=== PATIENT | male | born 1935 | race Caucasian/White ===

== ENCOUNTER → 2017-03-21 | Outpatient (CLI) | payer MEDICARE, BC ==
--- NOTE | 2017-03-21 12:41 | MM ---
Reason for exam: clinical finding. History: Family history of breast cancer in daughter at age 56. Indicated problem(s): palpable abnormality and pain in the left breast. Physical Findings: Nurse Summary: 2 x 2cm nodule in the left breast at the nipple (nurse cw). MG 3D Diag Mammo W/Cad ALEKS Bilateral CC and MLO view(s) were taken. No prior studies available for comparison. The breast tissue is heterogeneously dense. This may lower the sensitivity of mammography. Asymmetry greater in the left breast. Corresponds to ultrasound findings. These results were verbally communicated with the patient and result sheet given to the patient on 03/21/17. ASSESSMENT: Suspicious, BI-RAD 4 RECOMMENDATION: Surgical consultation and ultrasound core biopsy of the left breast. Called Dr. Will with mammographic findings and has scheduled an appointment for the patient for 03/27/17 at [address] Albrecht. Biopsy scheduled for 03/28/17 at 8 o'clock. PRELIMINARY REPORT CALLED AND FAXED TO DR. ALBRECHT ON 03/21/17 /TMP.
--- NOTE | 2017-03-21 12:43 | USB ---
Reason for exam: clinical finding. History: Family history of breast cancer in daughter at age 56. Indicated problem(s): palpable abnormality and pain in the left breast. US Breast LT Left breast ultrasound demonstrates a 22 x 11 x 15mm gynecomastia at the nipple. Not typical flame appearance, cannot exclude mass. These results were verbally communicated with the patient and result sheet given to the patient on 03/21/17. ASSESSMENT: Suspicious, BI-RAD 4 RECOMMENDATION: Surgical consultation and ultrasound core biopsy of the left breast. Called Dr. Will with mammographic findings and has scheduled an appointment for the patient for 03/27/17 at [address] Albrecht. Biopsy scheduled for 03/28/17 at 8 o'clock. PRELIMINARY REPORT CALLED AND FAXED TO DR. ALBRECHT ON 03/21/17 /TMP.
== END | disposition home or self-care (01) ==
LOC: RADMAMWWP 07:49
PROVIDERS: ATTEND Internal Medicine
DX: R92.8 Other abnormal and inconclusive findings on diagnostic imaging of breast (principal); N63 Unspecified lump in breast; N64.4 Mastodynia
CPT/HCPCS: 76641; G0204; G0279

== ENCOUNTER → 2017-03-28 | Day surgery (SDC) | payer MEDICARE, BC ==
[2017-03-28 07:50] VITALS: RESP 18; BMI 25.8
[2017-03-28 08:54] VITALS: BP 146/68; PULSE 61; TEMP 98.7
--- NOTE | 2017-03-28 09:32 | USB ---
EXAMINATION TYPE: US biopsy breast VAD LT DATE OF EXAM: 03/28/2017 CLINICAL HISTORY: 81-year-old male R92.8 Abn Mammogram. Patient with tender palpable lump left breast for the last couple months. TECHNIQUE: Ultrasound guided core biopsy of the left breast. COMPARISON: 03/21/2017 FINDINGS: The procedure of ultrasound guided core biopsy was explained to the patient. Benefits, alternatives, and risks were discussed. An informed consent was then obtained. The patient was placed in supine positioning for imaging and for the procedure. The overlying skin was prepped and draped in usual sterile fashion. Lidocaine was used as anesthetic into the skin and subcutaneous tissue up to area of concern in the left subareolar breast. Under ultrasound guidance, a 13-gauge vacuum-assisted mammotome a lead biopsy gun was used to obtain 6 core samples. Following this, a biopsy clip was not placed due to high suspicion of benign gynecomastia and the focality of the area which will make it easy to identify later if needed. The patient tolerated the procedure well without any immediate complication. The patient was kept in the radiology department for short stay after the procedure and then discharged home in stable condition. IMPRESSION: Successful, uncomplicated ultrasound guided core biopsy of area of concern in the subareolar left breast. Benign gynecomastia is highly suspected. Full pathology results to follow. Pathology Results: Benign BREAST, LEFT, ULTRASOUND GUIDED CORE BIOPSY: GYNECOMASTIA. Recommendation Surgical consult of the left breast. (surgical consult can be considered for possible elective excision if continues to be symptomatic) LENORA
== END ==
LOC: RADUSWWP 07:30
PROVIDERS: ATTEND Surgery
DX: N62 Hypertrophy of breast (principal); R92.8 Other abnormal and inconclusive findings on diagnostic imaging of breast
CPT/HCPCS: 88305; 19083; J2001

== ENCOUNTER → 2017-11-30 | Outpatient (CLI) | payer MEDICARE, BC | END | disposition home or self-care (01) | LOC: LABPAT 10:32 | PROVIDERS: ATTEND Orthopaedic Surgery | DX: Z01.812 Encounter for preprocedural laboratory examination (principal) | CPT/HCPCS: 87070 ==

== ENCOUNTER → 2017-12-04 | Outpatient (CLI) | payer MEDICARE, BC ==
[2017-12-04 17:26] LABS: Basophils # (A) 0.1 k/uL (0-0.2); Basophils % (A) 1 %; Eosinophils # (A) 0.2 k/uL (0-0.7); Eosinophils % (A) 3 %; HCT 36.2 % (39.0-53.0); HGB 11.8 gm/dL (13.0-17.5); Lymphocytes # (A) 1.1 k/uL (1.0-4.8); Lymphocytes % (A) 19 %; MCH 27.8 pg (25.0-35.0); MCHC 32.6 g/dL (31.0-37.0); MCV 85.2 fL (80.0-100.0); Monocytes # (A) 0.6 k/uL (0-1.0); Monocytes % (A) 10 %; Neutrophils # (A) 3.6 k/uL (1.3-7.7); Neutrophils % (A) 64 %; Platelet Count 246 k/uL (150-450); RBC 4.25 m/uL (4.30-5.90); RDW 13.5 % (11.5-15.5); WBC 5.6 k/uL (3.8-10.6)
[2017-12-04 17:36] LABS: INR 1.1 (<1.2); Partial Thromboplastin Time 24.7 sec (22.0-30.0); Prothrombin Time 10.6 sec (9.0-12.0)
[2017-12-04 17:42] LABS: Calcium 9.6 mg/dL (8.4-10.2); Potassium 4.3 mmol/L (3.5-5.1)
== END | disposition home or self-care (01) ==
LOC: LABPAT 16:36
PROVIDERS: ATTEND Internal Medicine
DX: Z01.812 Encounter for preprocedural laboratory examination (principal)
CPT/HCPCS: 36415; 80048; 85025; 85610; 85730

== ENCOUNTER 2017-12-10 09:33 | Inpatient (IN) | payer MEDICARE, BC ==
[2017-12-03 16:44] VITALS: BMI 24.3
--- NOTE | 2017-12-09 12:31 | HP ---
HISTORY AND PHYSICAL DATE OF ADMISSION: Surgery scheduled for 12/10/17 HISTORY OF PRESENT ILLNESS: Eriberto Schuster is an 82-year-old patient seen with symptomatic left hip osteoarthritis. Treatment options were discussed with him. He elected to proceed with direct anterior left total hip arthroplasty. Consent regarding the procedure was obtained. Medical clearance was provided by Dr. Will. PAST MEDICAL HISTORY: Hypertension, hyperlipidemia. PAST SURGICAL HISTORY: Appendectomy, cataract surgery, shoulder rotator cuff repair. MEDS: Albuterol, Hyzaar, metoprolol, Zocor. ALLERGIES: SURGICAL TAPE. SOCIAL HISTORY: The patient denies current tobacco use. PHYSICAL EXAMINATION: Evaluation of the left hip there is very limited range of motion with severe pain, diffuse tenderness. Positive hip impingement sign. Straight leg raise negative. Distal neurovascular exam is intact. RADIOGRAPHS: Radiographs of the left hip reveal severe osteoarthritis. IMPRESSION: 1. Left hip osteoarthritis. 2. Hypertension. 3. Hyperlipidemia. PLAN: Direct anterior left total hip arthroplasty. Surgery is scheduled for 12/10/17. MMODL / IJN: [id number] /
[~2017-12-10 09:33] MED LIST: ACETAMINOPHEN TAB 500 MG TAB PO ONE; HYDROmorphone 0.5 MG/0.5 ML SYRINGE IVP PRN; MELOXICAM 7.5 MG TAB PO ONE; MORPHINE SULFATE 2 MG/ML SYRINGE IV PRN; TRANEXAMIC ACID 1,000 MG in SODIUM CHLORIDE 0.9% 50 ML IVPB ONE; VANCOMYCIN 1,000 MG in SODIUM CHLORIDE 0.9% 250 ML IVPB ONE
[2017-12-10 10:32] VITALS: RESP 16
[2017-12-10] MEDS ORDERED: LIDOCAINE 1% 20 ML VIAL (10MG/ML) FOR IV START INTRADERMA ONE (10:43)
[2017-12-10] MEDS: LACTATED RINGERS 1,000 ML IV SCH (10:43)
[2017-12-10] MEDS ORDERED: ONDANSETRON 4 MG/2 ML VIAL IVP STA (11:03)
[2017-12-10] MEDS ORDERED: DEXAMETHASONE SOD PHOSPHATE 10 MG/ML 1 ML VIAL IV STA (11:04)
[2017-12-10] MEDS ORDERED: ROPIVACAINE 246.25 MG, EPINEPHrine 0.5 MG, KETOROLAC 30 MG, cloNIDine HCL/PF 80 MCG, WA... MISCELLANE ONE ×5 (12:10)
[2017-12-10] MEDS ORDERED: fentaNYL (PF) 50 MCG/ML 2 ML AMP ONE (12:53)
[2017-12-10] MEDS ORDERED: MIDAZOLAM 2 MG/2 ML VIAL ONE (12:53)
[2017-12-10] MEDS ORDERED: TRANEXAMIC ACID 1,000 MG/10 ML VIAL ONE (12:53)
[2017-12-10] MEDS ORDERED: SODIUM CHLORIDE 0.9% 100 ML BAG ONE (12:53)
[2017-12-10] MEDS ORDERED: PROPOFOL 10 MG/ML 20 ML VIAL IV ONE (12:53)
--- NOTE | 2017-12-10 14:57 | FL ---
EXAMINATION TYPE: FL guidance operating room, XR Hip Limited LT DATE OF EXAM: 12/10/2017 CLINICAL HISTORY: Left hip replacement. TECHNIQUE: Fluoroscopy. Intraoperative limited views left hip. COMPARISON: None. FINDINGS: Fluoroscopic guidance was provided during left hip replacement procedure performed by Dr. Bedoya. A total of 27 seconds of fluoroscopic time was utilized during the procedure and one spot intraoperative image is acquired. Single image acquired is not sent to PACS system at time of dictation. IMPRESSION: As Above.
[2017-12-10] MEDS ORDERED: ONDANSETRON 4 MG/2 ML VIAL IVP PRN (15:06)
[2017-12-10] MEDS ORDERED: MORPHINE SULFATE/PF 10MG/10ML VL IV PRN ×4 (15:06)
[2017-12-10] MEDS ORDERED: NALOXONE 0.4 MG/ML 1 ML VIAL IV PRN (15:06)
[2017-12-10] MEDS ORDERED: HYDROcodone/APAP 7.5-325MG 1 EACH TAB PO PRN ×2 (15:06)
--- NOTE | 2017-12-10 15:06 | P.OP ---
Date of Procedure: 12/10/17 Preoperative Diagnosis: Left hip osteoarthritis Postoperative Diagnosis: Left hip osteoarthritis Procedure(s) Performed: Direct anterior left total hip arthroplasty Implants: 1. Depuy Corail press-fit KA size 14 standard collar femoral stem 2. Depuy pinnacle press-fit 56 mm acetabular shell 3. Depuy pinnacle polyethylene acetabular liner neutral 36 mm ID 56 mm OD 4. Biolox delta ceramic femoral head +1.5 36 mm Anesthesia: local, spinal Surgeon: Kike Bedoya Analysis Consultant #1: Patrice Valdes Estimated Blood Loss (ml): 200 Pathology: other (Femoral head) Condition: stable Disposition: PACU Indications for Procedure: 82-year-old patient seen with symptomatic left hip osteoarthritis. After treatment options were discussed, he elected to proceed with total hip arthroplasty. Operative Findings: see description of procedure Description of Procedure: The patient was taken to the operative suite. Patient underwent a spinal anesthetic by the department of anesthesia. Patient was then transferred to the [place] table. Patient was given preoperative IV antibiotics and TXA. Both lower extremities were placed in standard leg spars. The hip was then prepped and draped in the normal sterile orthopedic fashion. A standard anterior incision was made beginning 3 cm lateral and 1 cm distal to the ASIS extending 10 cm. Dissection was then carried down through the subcutaneous soft tissues down to the fascia overlying the tensor fascia mai. An incision was now made through the fascia. Careful dissection was taken down exposing the tensor fascia mai muscle. A Cobra retractor was now placed along the medial femoral neck and a second one along the lateral femoral neck. The venous circumflex vessels were now identified, cauterized and clipped. We identified the anterior hip capsule. An incision was made through the hip capsule along the lateral border. Tag sutures were then placed along the anterior capsule and lateral capsule. We then performed a capsulotomy. Retractors were now placed around the femoral neck itself. A Cobra retractor was now placed along the anterior acetabulum. Good exposure was now noted of the femoral head/neck complex. Residual labrum was debrided out. We placed the extremity into 3 turns of fine traction. We were then able to introduce a skid in between the femoral head and acetabulum. A placed a awl into the femoral head. We took 2 turns of traction off the extremity. Rotation was now released. The femoral head was then dislocated without difficulty. Additional releasing was performed of the capsule. The head was then reduced. All traction was released. A femoral neck cut was now made with a sagittal saw. It was completed with an osteotome at the lateral neck area. The femoral head was now removed without difficulty. The extremity was now rotated to 45 of external rotation. It was locked in position. Residual labrum was now debrided out. Serial reaming was performed of the acetabulum. Once we reached the appropriate size and a trial was position and fit nicely. The trial was removed. The wound was irrigated with pulse lavage mechanical irrigation. The appropriate size was now chosen opened and made available. It was introduced into the acetabulum without difficulty. The C-arm/fluoroscopy was now brought into the operative field. We made sure we had a true AP pelvic view. We now under direct C-arm/fluoroscopy introduced into the acetabular component with appropriate version and inclination. It was well seated and stable. I did introduce one single screw with good bite and purchase to augment the stability. The C-arm was pulled back. An appropriate liner was introduced and clicked into position. It was felt to be stable. At this point retractors were removed. The extremity was now placed into 120 external rotation with no traction. The leg was now dropped to the ground and adducted. Appropriate retractors were now positioned along the proximal femur. We also placed our femoral look into position. Additional capsular releasing was performed to gain access to the proximal femur. We now used a box osteotome. A canal finder was now utilized. Serial broaching was now performed until we reached the appropriate size with good overall rotational stability. Appropriate calcar planing was performed. A trial head/neck was placed into position. The hip was now reduced. The C-arm/fluoroscopy was brought back into the operative field. A spot film was obtained of the nonoperative hip. A spot film was obtained of the trial components. Overlays were performed, we noted good overall alignment and positioning for determining leg length. The C-arm/ fluoroscopy was pulled back. Retractors were repositioned and the hip was dislocated. The leg was again taken down to the ground and adducted. Appropriate retractors were repositioned as well as the femoral hook. All trial components were removed. The femoral implant was opened along with the femoral head. The wound was irrigated with pulse lavage mechanical irrigation. The deep soft tissues were infiltrated local analgesic. The femoral implant was introduced with good purchase and fixation noted. The femoral head was introduced with good positioning and fixation noted. Retractors were now removed. The hip was now reduced. There appeared be good positioning of the hip. This was confirmed under fluoroscopy and spot films were obtained to document this. A second gram of TXA was given. Bipolar cautery had been utilized intermittently through the procedure for hemostasis. The wound was irrigated copiously with pulse lavage mechanical irrigation. The deep and superficial soft tissues were infiltrated local analgesic. The fascia was repaired with Vicryl suture. The subcutaneous soft tissues were repaired in layers with Vicryl suture. The skin was approximated with pernio/Dermabond. Sterile dressings were applied. Patient was then awakened, transferred to a bed and taken to recovery in stable condition. Charly CATES assisted with the procedure.
[2017-12-10] MEDS: traMADol 50 MG TAB PO SCH ×2 (17:36→22:02)
[2017-12-10] MEDS: SODIUM CHLORIDE 0.9% 1,000 ML IV SCH (17:37)
[2017-12-10] MEDS ORDERED: ALBUTEROL NEBULIZED 2.5 MG/3 ML INHALATION PRN (17:48)
--- NOTE | 2017-12-10 19:17 | P.CNPUL ---
History of Present Illness Consult date: 12/10/17 Reason for consult: COPD, other (Left hip arthroplasty) History of present illness: A pleasant 82-year-old male patient who is post anterior left total hip arthroplasty, and we have asked to evaluate this patient's pulmonary status and review his medications. The patient was seen preoperatively by Dr. Lew. The patient is known to have moderate to severe COPD which was inactive and stable and the patient was found to have an FEV1 of 52% of predicted with post- bronchodilators FEV1 of 62% of predicted. His other comorbidities include hypertension, hyperlipidemia, chronic renal failure and the patient has undergone a previous aortic valve replacement has a pacemaker in place. The patient is doing well. No shortness of breath. No angina. No palpitations. No other complaints otherwise for now. He is hemodynamically stable. Review of Systems Constitutional: Denies weight loss, denies fatigue, no night sweats, no fever, no chills. Cardiovascular: Denies palpitations, denied chest pain or chest pressure, denies any edema. GI: Denies nausea vomiting abdominal pain diarrhea or constipation. Genitourinary: Denies dysuria, frequency, or urgency. Neurologic: Denies weakness, confusion, dizziness, or numbness. Musculoskeletal:Severe left hip pain with minimal pain in the right hip.And chronic back pain Skin: Denies any skin lesions or rashes. Endocrine: No polydipsia, no polyuria, no heat or cold sensitivity. Pulmonary: Cough no wheezing no shortness of breath Hematologic: No clotting bleeding or bruising. Psychiatric: No symptoms of active depression. Past Medical History Past Medical History: COPD, Hyperlipidemia, Hypertension, Pulmonary Embolus (PE) , Renal Disease Additional Past Medical History / Comment(s): COPD moderate in severity with an FEV1 of 62% of predicted, aortic valve replacement back in 2009, History of pacemaker insertion, hypertension, degenerative arthritis of multiple joints, chronic kidney failure, hyperlipidemia, hypertension, history of heavy smoking which he quit approximately 6 years ago History of Any Multi-Drug Resistant Organisms: None Reported Past Surgical History: Bowel Resection, Cardiac Valve Replacement, Heart Catheterization, Pacemaker Additional Past Surgical History / Comment(s): aortic valve replacement August 2010, pacemaker placed September 2011, kevin cataracts Past Anesthesia/Blood Transfusion Reactions: No Reported Reaction Type of Cardiac Device: Permanent Pacemaker Device Placement Date:: 09/29/2011 Past Psychological History: No Psychological Hx Reported Smoking Status: Former smoker Past Alcohol Use History: None Reported Additional Past Alcohol Use History / Comment(s): quit smoking 2009 Past Drug Use History: None Reported - Past Family History Daughter(s) Family Medical History: Cancer Additional Family Medical History / Comment(s): TLH Father Family Medical History: Cancer Medications and Allergies Home Medications Medication Instructions Recorded Confirmed Type Aspirin [Adult Low Dose Aspirin EC] 81 mg PO HS 09/13/15 12/10/17 History Cholecalciferol [Vitamin D3] 1,000 unit PO DAILY 09/13/15 12/10/17 History Fenofibrate,Micronized 134 mg PO DAILY 09/13/15 12/10/17 History [Fenofibrate] Latanoprost Ophth [Xalatan 0.005%] 1 drops BOTH EYES HS 09/13/15 12/10/17 History Metoprolol Tartrate [Lopressor] 100 mg PO BID 09/13/15 12/10/17 History Multivit-Min/FA/Lycopen/Lutein 1 tab PO DAILY 09/13/15 12/10/17 History [Centrum Silver Tablet] Tamsulosin [Flomax] 0.4 mg PO DAILY 09/13/15 12/10/17 History Albuterol Nebulized [Ventolin 2.5 mg INHALATION RT-Q6H PRN 03/21/17 12/10/17 History Nebulized] Losartan/Hydrochlorothiazide 1 tab PO DAILY 03/21/17 12/10/17 History [Losartan-Hctz 100-12.5 mg Tab] Simvastatin [Zocor] 20 mg PO HS 03/21/17 12/10/17 History Acetaminophen [Tylenol Arthritis] 1,300 mg PO TID PRN 12/03/17 12/10/17 History Vit C/E/Zn/Coppr/Lutein/Zeaxan 2 cap PO DAILY 12/03/17 12/10/17 History [Preservision Areds 2 Softgel] Allergies Allergy/AdvReac Type Severity Reaction Status Date / Time Iodine and Iodide Containing AdvReac Unknown STATES Verified 12/10/17 16:18 Produc UNABLE TO HAVE DUE TO KIDNEY DISEASE. NSAIDS (Non-Steroidal AdvReac Unknown STATES Verified 12/10/17 16:18 Anti-Inflamma UNABLE TO TAKE DUE TO KIDNEY DISEASE. adhesive tape AdvReac Rash/Hives Verified 12/10/17 16:18 Physical Exam Vitals: Vital Signs Temp Pulse Resp BP Pulse Ox 12/10/17 16:14 60 16 131/62 96 12/10/17 16:00 60 16 133/60 96 12/10/17 15:45 60 16 139/64 97 12/10/17 15:26 97.7 F 60 16 133/60 97 12/10/17 10:30 97.7 F 62 16 165/77 98 Intake and Output 12/10/17 12/10/17 12/10/17 06:59 14:59 22:59 Intake Total 950 50 Output Total 200 Balance 950 -150 Intake: IV 950 50 Output: Estimated Blood Loss 200 Other: Weight 74.843 kg Physical exam revealed an 82-year-old white male in no distress HEENT: Anicteric sclerae, pink and moist conjunctivae. Extraocular movements intact, pupils are reactive to light they are round and equal. External inspection of ears and nose showed normal mucosa. Oral mucosa, soft and hard palate tongue and posterior pharynx are intact. Neck: Supple no neck masses, no JVD, no thyroid enlargement, no adenopathy. Lungs: Symmetrical expansion, clear breath sounds bilaterally, no rhonchi and no wheezes. CVS: Regular rate and rhythm, normal S1 and S2, no gallops, no murmur, no rubs. Abdomen: Soft, nontender, no megaly, no rebound, no guarding, positive bowel sounds. Extremities: No clubbing, no edema, no cyanosis, 2+ pulses in upper and lower extremities. Musculoskeletal: Muscle strength and tone normal. The surgical wound site over the left hip areas dry clean and intact. Patient has adequate pulses Neurologic: Alert and oriented 3, normal affect, no focal neurologic deficits. Procedure Documentation Assessment and Plan Plan: Assessment 1 left hip replacement for severe degenerative arthritis. Patient is postop day #0 2 COPD moderate to severe currently inactive in stable 3 history of aortic valve replacement 4 history of pacemaker insertion 5 chronic renal failure, with a baseline GFR of 39 and a creatinine of 1.6 6 hyperlipidemia 7 hypertension 8 BPH 9 glaucoma Plan Patient is hemodynamically stable. We'll resume outpatient medications. Continue fluids with D5 with 20 mg of potassium and half-normal saline today to have 125 mL an hour. Provide the patient incentive spirometer. Dilaudid for pain control. Heparin subcu for DVT prophylaxis. We'll continue to follow.
[2017-12-10] MEDS ORDERED: ASPIRIN 81 MG PO SCH (21:00)
[2017-12-10] MEDS ORDERED: LATANOPROST 0.005% OPHTH DROPS 2.5 ML BTL BOTH EYES SCH (21:00)
[2017-12-10] MEDS ORDERED: SENNOSIDES-DOCUSATE SODIUM 1 EACH TAB PO SCH (21:00)
[2017-12-10] MEDS ORDERED: ATORVASTATIN 10 MG TAB PO SCH (21:00)
[2017-12-10] MEDS: METOPROLOL TARTRATE 50 MG TAB PO SCH (22:04)
[2017-12-11] MEDS: LACTATED RINGERS 1,000 ML IV SCH (06:07)
[2017-12-11 08:04] LABS: Calcium 8.5 mg/dL (8.4-10.2); Potassium 4.8 mmol/L (3.5-5.1)
[2017-12-11 08:28] LABS: Basophils % (A) 0 %; Eosinophils % (A) 0 %; HCT 30.6 % (39.0-53.0); Lymphocytes # (A) 0.6 k/uL (1.0-4.8); Lymphocytes % (A) 6 %; MCH 27.7 pg (25.0-35.0); MCHC 32.7 g/dL (31.0-37.0); MCV 84.9 fL (80.0-100.0); Mean Platelet Volume 7.2; Monocytes # (A) 0.8 k/uL (0-1.0); Monocytes % (A) 9 %; Neutrophils # (A) 8.3 k/uL (1.3-7.7); Neutrophils % (A) 84 %; Platelet Count 219 k/uL (150-450); RBC 3.61 m/uL (4.30-5.90); RDW 13.6 % (11.5-15.5); WBC 9.9 k/uL (3.8-10.6)
[2017-12-11] MEDS ORDERED: FENOFIBRATE 160 MG TAB PO SCH (09:00)
[2017-12-11] MEDS ORDERED: LOSARTAN 50 MG TAB PO SCH (09:00)
[2017-12-11] MEDS ORDERED: NON-FORMULARY DRUG (Losartan/Hydrochlorothiazide [Losartan-Hctz 100-12.5 Mg Tab] 1 TAB) PO SCH (09:00)
[2017-12-11] MEDS ORDERED: HYDROCHLOROTHIAZIDE 12.5 MG CAP PO SCH (09:00)
[2017-12-11] MEDS ORDERED: FAMOTIDINE 20 MG TAB PO SCH (09:00)
[2017-12-11] MEDS ORDERED: TAMSULOSIN 0.4 MG CAP.ER.24H PO SCH (09:00)
[2017-12-11] MEDS ORDERED: ENOXAPARIN 40 MG/0.4 ML SYRINGE SQ SCH (09:00)
[2017-12-11] MEDS: METOPROLOL TARTRATE 50 MG TAB PO SCH (11:07)
[2017-12-11] MEDS: SODIUM CHLORIDE 0.9% 1,000 ML IV SCH (11:20)
[2017-12-11] MEDS: traMADol 50 MG TAB PO SCH ×2 (11:24→14:04)
[2017-12-11] MEDS ORDERED: VIT A,C & E-LUTEIN-MINERALS 1 EACH TAB PO SCH (12:00)
[2017-12-11] MEDS ORDERED: CHOLECALCIFEROL 1,000 UNIT TAB PO SCH (12:00)
[2017-12-11] MEDS ORDERED: MULTIVITAMINS, THERA 1 EACH TAB PO SCH (12:00)
--- NOTE | 2017-12-11 13:05 | P.PN ---
Subjective Progress Note Date: 12/11/17 Principal diagnosis: Status post left total hip arthroplasty Patient seen today resting in his hospital bed, his is present at bedside. Patient's doing very well at this point. He's ambulating well with therapy, he is urinating on his own, his pain is controlled. He denies any headaches, lightheadedness, chest pain or shortness of breath. Objective - Vital Signs Vital signs: Vital Signs Temp 97.9 F 12/11/17 01:03 Pulse 61 12/11/17 01:03 Resp 16 12/11/17 01:03 BP 109/49 12/11/17 01:03 Pulse Ox 95 12/11/17 01:03 Intake & Output 12/10/17 12/11/17 12/11/17 18:59 06:59 18:59 Intake Total 1000 736 118 Output Total 200 Balance 800 736 118 Weight 74.843 kg Intake: IV 1000 Intake, IV Titration 736 Amount Sodium Chloride 0.9% 1, 736 000 ml @ 50 mls/hr IV . Q20H [facility] Rx#:[id number] Oral 118 Output: Estimated Blood Loss 200 Other: Voiding Method Toilet Urinal # Voids 3 - Exam Left lower extremity: Incision is clean, dry, and intact. The prineo tape is in good condition. There is minimal soft tissue swelling and ecchymosis surrounding the medial and lateral aspects of the incision. Calf is soft, no tenderness with palpation. Plantar flexion, dorsiflexion, EHL, FHL are intact. Sensory exam to light touch throughout the extremity is intact, dorsal pedis pulses 2+. - Labs CBC & Chem 7: 12/11/17 06:45 12/11/17 06:45 Labs: Abnormal Lab Results - Last 24 Hours (Table) 12/11/17 12/11/17 Range/Units 06:45 06:45 RBC 3.61 L (4.30-5.90) m/uL Hgb 10.0 L D (13.0-17.5) gm/dL Hct 30.6 L (39.0-53.0) % Neutrophils # 8.3 H (1.3-7.7) k/uL Lymphocytes # 0.6 L (1.0-4.8) k/uL BUN 44 H (9-20) mg/dL Creatinine 1.82 H (0.66-1.25) mg/dL Glucose 123 H (74-99) mg/dL Assessment and Plan Plan: Assessment: 1. Postop day #1 status post left total hip arthroplasty Plan: 1. Pain control, we'll discharge home on oral medication 2. GI and DVT prophylaxis, we'll discharge home on aspirin 325 mg twice a day 3. Wound care instructions were discussed 4. Home therapy and nursing after discharge 5. Medical recommendations 6. Discharge planning: Patient will be discharged home today Time with Patient: Less than 30
--- NOTE | 2017-12-11 13:10 | P.DS ---
Providers Date of admission: 12/10/17 09:33 Expected date of discharge: 12/11/17 Attending physician: Kike Bedoya Consults: 12/10/17 15:06 Consult Physician Routine Consulting Provider: Janneth Will Consult Reason/Comments: Medical management Do you want consulting provider notified?: Yes Primary care physician: Janneth Will Hospital Course: Date of admission: 12/10/2017 Date of discharge: 12/11/2017 Admission diagnosis: Status post total hip arthroplasty Discharge diagnosis: Same Attending physician: Dr. Bedoya Surgical procedures: Left total hip arthroplasty Brief history: Patient is a 82-year-old male with a history of progressive primary left hip osteoarthritis. At this point patient has failed conservative treatment measures and has opted to proceed with a elective left total hip arthroplasty. Hospital course: Details of patient's surgery can be found in operative report. Patient tolerated the procedure well and was subsequently transported to orthopedic floor. Patient's orthopeidc and medical care was provided daily. Patient had daily laboratory tests performed for evaluation of overall blood counts. Patient had daily physical therapy to include strengthening range of motion as well as education with walker ambulation. Patient was treated with Lovenox for their postoperative DVT prophylaxis during their inpatient stay. Patient was noted to have a relatively uneventful postoperative course. Patient reported satisfactory pain control with oral pain medications by postoperative day 0. Patient showed satisfactory progress with physical therapy. Patient moved steadily through the program and had no difficulty meeting the goals by postoperative day 1. Given patient's otherwise satisfactory course and having met physical therapy goals, plan is to discharge patient home on postoperative day 1. Discharge condition/disposition: Patient will be discharged home in stable condition. Discharge medications: Instructions are given on resumption of patient's normal daily medications per primary care recommendation, in addition patient will be prescribed Naknek 5 mg/325 mg, tramadol 50 mg, Colace 100 mg, Pepcid 20 mg, aspirin 325 mg. Discharge instructions: 1. Wound care and infection precautions, keep incision dry and covered while showering, no lotions, creams, moisturizers. No soaking, tubs, pools, hottubs. Do not scrub over the incision. 2. Weight-bear as tolerated with walker / cane until follow-up. 3. Ice and elevate when necessary. Do not exceed 20 minutes per hour with ice pack. 4. Utilize compression sleeve until seen at first follow up appointment. 5. Visiting nursing care. 6. Home physical therapy. 7. Pain meds and anticoagulants per prescription. 8. Pain medication has potential to cause constipation. Increase oral fluid and fiber intake. Contact primary care provider if you have not had a bowel movement within 48 hours after discharge 9. No anti-inflammatory medication until discussed at first post operative visit, this including Motrin, Aleve, Mobic, Diclofenac. 10. Follow up in office at 2 weeks postop with Charly Valdes PA-C 11. Follow up with your primary care doctor 7-10 days after discharge. 12. Contact [facility] with any questions, . Procedures: Left total hip arthroplasty Patient Condition at Discharge: Good Plan - Discharge Summary Discharge Rx Participant: Yes New Discharge Prescriptions: New Aspirin 325 mg PO BID #60 tab Docusate [Colace] 100 mg PO DAILY #30 capsule Famotidine [Pepcid] 20 mg PO DAILY #30 tablet Hydrocodone/Acetaminophen [Naknek 5-325] 1 each PO Q6HR PRN #30 tab PRN Reason: Pain traMADol HCl [Ultram] 50 mg PO Q6H PRN #40 tab PRN Reason: Pain No Action Latanoprost Ophth [Xalatan 0.005%] 1 drops BOTH EYES HS Multivit-Min/FA/Lycopen/Lutein [Centrum Silver Tablet] 1 tab PO DAILY Metoprolol Tartrate [Lopressor] 100 mg PO BID Fenofibrate,Micronized [Fenofibrate] 134 mg PO DAILY Tamsulosin [Flomax] 0.4 mg PO DAILY Cholecalciferol [Vitamin D3] 1,000 unit PO DAILY Albuterol Nebulized [Ventolin Nebulized] 2.5 mg INHALATION RT-Q6H PRN PRN Reason: Bronchospasm Simvastatin [Zocor] 20 mg PO HS Losartan/Hydrochlorothiazide [Losartan-Hctz 100-12.5 mg Tab] 1 tab PO DAILY Vit C/E/Zn/Coppr/Lutein/Zeaxan [Preservision Areds 2 Softgel] 2 cap PO DAILY Acetaminophen [Tylenol Arthritis] 1,300 mg PO TID PRN PRN Reason: Pain Discharge Medication List Cholecalciferol [Vitamin D3] 1,000 unit PO DAILY 09/13/15 [History] Fenofibrate,Micronized [Fenofibrate] 134 mg PO DAILY 09/13/15 [History] Latanoprost Ophth [Xalatan 0.005%] 1 drops BOTH EYES HS 09/13/15 [History] Metoprolol Tartrate [Lopressor] 100 mg PO BID 09/13/15 [History] Multivit-Min/FA/Lycopen/Lutein [Centrum Silver Tablet] 1 tab PO DAILY 09/13/15 [ History] Tamsulosin [Flomax] 0.4 mg PO DAILY 09/13/15 [History] Albuterol Nebulized [Ventolin Nebulized] 2.5 mg INHALATION RT-Q6H PRN 03/21/17 [ History] Losartan/Hydrochlorothiazide [Losartan-Hctz 100-12.5 mg Tab] 1 tab PO DAILY 01/31 [History] Simvastatin [Zocor] 20 mg PO HS 03/21/17 [History] Acetaminophen [Tylenol Arthritis] 1,300 mg PO TID PRN 12/03/17 [History] Vit C/E/Zn/Coppr/Lutein/Zeaxan [Preservision Areds 2 Softgel] 2 cap PO DAILY [History] Aspirin 325 mg PO BID #60 tab 12/11/17 [Rx] Docusate [Colace] 100 mg PO DAILY #30 capsule 12/11/17 [Rx] Famotidine [Pepcid] 20 mg PO DAILY #30 tablet 12/11/17 [Rx] Hydrocodone/Acetaminophen [Naknek 5-325] 1 each PO Q6HR PRN #30 tab 12/11/17 [Rx] traMADol HCl [Ultram] 50 mg PO Q6H PRN #40 tab 12/11/17 [Rx] Follow up Appointment(s)/Referral(s): [facility], [NON-STAFF] - Patrice Valdes PAC [PHYSICIAN CEO & BOARD DIRECTOR] - 2 Weeks Ambulatory/Diagnostic Orders: Complete Blood Count w/diff [LAB.AMB] Location: Determined By Patient Comprehensive Metabolic Panel [LAB.AMB] Location: Determined By Patient Activity/Diet/Wound Care/Special Instructions: Orthopedic Discharge Instructions: 1. Wound care and infection precautions, keep incision dry and covered while showering, no lotions, creams, moisturizers. No soaking, pools, hot tubs. Do not scrub over incision. 2. Weight-bear as tolerated with walker / cane until follow-up. 3. Ice and elevate when necessary. Do not exceed 20 minutes per hour with ice pack. 4. Utilize compression sleeve until seen at first follow up appointment. 5. Visiting nursing care. 6. Home physical therapy. 7. Pain meds and anticoagulants per prescription. 8. Pain medication has potential to cause constipation. Increase oral fluid and fiber intake. Contact primary care provider if you have not had a bowel movement within 48 hours after discharge. 9. No anti-inflammatory medication until discussed at first post operative visit, this including Motrin, Aleve, Mobic, Diclofenac. 10. Follow up in office at 2 weeks postop with Charly Valdes PA-C 11. Follow up with your primary care doctor 7-10 days after discharge. 12. Contact [facility] with any questions, . Discharge Disposition: HOME WITH HOME HEALTH SERVICES
--- NOTE | 2017-12-11 13:43 | CDI ---
Last Revision, August 2017 Documentation Clarification Form Date: 12/11/17 1340 From: Andra Richard RN, CCDS Admit Date: 12/10/2017 9:33:00 AM Patient Name: Eriberto Schuster Visit Number: [id number] ATTENTION: The Clinical Documentation Specialists (CDI) and [facility] Coding Staff appreciate your assistance in clarifying documentation. Please respond to the clarification below the line at the bottom and electronically sign. The CDI & [facility] Coding staff will review the response and follow-up if needed. Please note: Queries are made part of the Legal Health Record. If you have any questions, please contact the author of this message via ITS. Dr. Vargas You documented a diagnosis of CKD that requires further specificity. History/Risk Factors: COPD, CKD, AVR. HTN, Hyperlipidemia Clinical Indicators: Current BUN/CR/GFR: 44/1.82/33 Patients Baseline: BUN/CR/GFR: see Pulmonary progress Note. 12/10 Pulmonary Consult: "chronic renal failure, with a baseline GFR of 39 and a creatinine of 1.6." Treatment: IVF: none ordered In order to capture the severity of condition, please clarify if the condition signifies: CKD Stage 1 (GFR > 90) CKD Stage 2 (GFR 60-89) CKD Stage 3 (GFR 30-59) CKD Stage 4 (GFR 15-29) CKD Stage 5 (GFR <15) ESRD Other, please specify Unable to determine Please continue to document in your progress notes and discharge summary in order to capture severity of illness and risk of mortality. Include clinical findings that support your diagnosis. MTDD
[2017-12-11 14:38] VITALS: BP 142/65; PULSE 64; TEMP 97.3
--- NOTE | 2017-12-11 14:54 | P.PN ---
Subjective Progress Note Date: 12/11/17 Principal diagnosis: Left hip replacements for severe degenerative arthritis, postop day 1, COPD moderately severe. Stable and inactive A pleasant 82-year-old male patient who is post anterior left total hip arthroplasty, and we have asked to evaluate this patient's pulmonary status and review his medications. The patient was seen preoperatively by Dr. Lew. The patient is known to have moderate to severe COPD which was inactive and stable and the patient was found to have an FEV1 of 52% of predicted with post- bronchodilators FEV1 of 62% of predicted. His other comorbidities include hypertension, hyperlipidemia, chronic renal failure and the patient has undergone a previous aortic valve replacement has a pacemaker in place. The patient is doing well. No shortness of breath. No angina. No palpitations. No other complaints otherwise for now. He is hemodynamically stable. On 12/11/2017 patient is seen in follow-up. He is status post left total hip arthroplasty, postop day 1. He is up ambulating with assistance, tolerating it well. He is on room air, with O2 sat at 94-95%, he has been afebrile, his vital signs are stable, his pain is controlled. Denies any dyspnea, denies any cough or chest congestion. Lung sounds are diminished bilaterally, no rhonchi or wheezes noted. Objective - Vital Signs Vital signs: Vital Signs Temp 97.3 F L 12/11/17 07:00 Pulse 64 12/11/17 07:00 Resp 16 12/11/17 07:00 BP 142/65 12/11/17 07:00 Pulse Ox 94 L 12/11/17 07:00 Intake & Output 12/10/17 12/11/17 12/11/17 18:59 06:59 18:59 Intake Total 1000 736 118 Output Total 200 Balance 800 736 118 Weight 74.843 kg Intake: IV 1000 Intake, IV Titration 736 Amount Sodium Chloride 0.9% 1, 736 000 ml @ 50 mls/hr IV . Q20H ZAHRA Rx#:[id number] Oral 118 Output: Estimated Blood Loss 200 Other: Voiding Method Toilet Urinal # Voids 3 - Exam GENERAL EXAM: Alert, pleasant, 82-year-old white male comfortable in no apparent distress. HEAD: Normocephalic/atraumatic. EYES: Normal reaction of pupils, equal size. Conjunctiva pink, sclera white. NOSE: Clear with pink turbinates. THROAT: No erythema or exudates. NECK: No masses, no JVD, no thyroid enlargement, no adenopathy. CHEST: No chest wall deformity. Symmetrical expansion. LUNGS: Diminished air entry bilaterally, no rhonchi, no wheezes or rales. CVS: Regular rate and rhythm, normal S1 and S2, no gallops, no murmurs, no rubs ABDOMEN: Soft, nontender. No hepatosplenomegaly, normal bowel sounds, no guarding or rigidity. EXTREMITIES: No clubbing, no edema, no cyanosis, 2+ pulses and upper and lower extremities. Left hip incision is clean dry and intact. There is minimal soft tissue swelling and ecchymosis. Pedal pulses are intact. MUSCULOSKELETAL: Muscle strength and tone normal. SPINE: No scoliosis or deformity SKIN: No rashes CENTRAL NERVOUS SYSTEM: Alert and oriented -3. No focal deficits, tone is normal in all 4 extremities. PSYCHIATRIC: Alert and oriented -3. Appropriate affect. Intact judgment and insight. - Labs CBC & Chem 7: 12/11/17 06:45 12/11/17 06:45 Labs: Abnormal Lab Results - Last 24 Hours (Table) 12/11/17 12/11/17 Range/Units 06:45 06:45 RBC 3.61 L (4.30-5.90) m/uL Hgb 10.0 L D (13.0-17.5) gm/dL Hct 30.6 L (39.0-53.0) % Neutrophils # 8.3 H (1.3-7.7) k/uL Lymphocytes # 0.6 L (1.0-4.8) k/uL BUN 44 H (9-20) mg/dL Creatinine 1.82 H (0.66-1.25) mg/dL Glucose 123 H (74-99) mg/dL Assessment and Plan Plan: Assessment: 1 left hip replacement for severe degenerative arthritis. Patient is postop day #1 2 COPD moderate to severe currently inactive in stable 3 history of aortic valve replacement 4 history of pacemaker insertion 5 chronic renal failure, with a baseline GFR of 39 and a creatinine of 1.6, CK disease stage III 6 hyperlipidemia 7 hypertension 8 BPH 9 glaucoma Plan Patient denies any dyspnea, he is on room air, denies any cough, wheezing or chest congestion. Vital signs are stable, his pain is controlled, he has been ambulating. From pulmonary standpoint patient is clear for discharge home today. Follow-up with Dr. Lew in the office in one week. I performed a history & physical examination of the patient and discussed their management with my nurse practitioner, Bree Lindsay. I reviewed the nurse practitioner's note and agree with the documented findings and plan of care. Lung sounds are positive diminished lung sounds bilaterally, but no rhonchi no wheezes noted. The findings and the impression was discussed with the patient. I attest to the documentation by the nurse practitioner. Time with Patient: Less than 30
== END 2017-12-11 16:20 | disposition home health service (06) | DRG 470 ==
LOC: 2ORMAIN 09:33 → 3SUR 15:01
PROVIDERS: ADMIT Orthopaedic Surgery; ATTEND Orthopaedic Surgery
PROC: 0SRB04A Replacement of Left Hip Joint with Ceramic on Polyethylene Synthetic Substitute, Uncemented, Open Approach (ICD-10-PCS; principal; 2017-12-10 13:10)
DX: M16.12 Unilateral primary osteoarthritis, left hip (principal); J44.9 Chronic obstructive pulmonary disease, unspecified; N18.3 Chronic kidney disease, stage 3 (moderate); N40.0 Benign prostatic hyperplasia without lower urinary tract symptoms; I12.9 Hypertensive chronic kidney disease with stage 1 through stage 4 chronic kidney disease, or unspecified chronic kidney disease; E78.00 Pure hypercholesterolemia, unspecified; H40.9 Unspecified glaucoma; Z90.89 Acquired absence of other organs; Z79.899 Other long term (current) drug therapy; Z91.048 Other nonmedicinal substance allergy status; Z95.2 Presence of prosthetic heart valve; Z95.0 Presence of cardiac pacemaker; Z86.711 Personal history of pulmonary embolism; Z87.891 Personal history of nicotine dependence; Z98.41 Cataract extraction status, right eye; Z98.42 Cataract extraction status, left eye; Z79.82 Long term (current) use of aspirin; Z80.9 Family history of malignant neoplasm, unspecified; Z88.8 Allergy status to other drugs, medicaments and biological substances; Z91.041 Radiographic dye allergy status; Z95.4 Presence of other heart-valve replacement
CPT/HCPCS: 36415; 73501; 80048; 85025; 86850; 86900; 86901; 88300

== ENCOUNTER → 2020-03-19 | Outpatient (CLI) | payer MEDICARE, BC ==
--- NOTE | 2020-03-19 12:03 | CT ---
EXAMINATION TYPE: CT lumbar spine wo con DATE OF EXAM: 03/19/2020 COMPARISON: None HISTORY: 84-year-old male Lower back pain TECHNIQUE: Contiguous axial scanning of the lumbar spine without IV contrast. Coronal and sagittal re constructions performed. CT DLP: 878.6 mGycm Automated exposure control for dose reduction was used. FINDINGS: Moderate atherosclerotic change infrarenal abdominal aorta and iliac arteries. Fusiform ectasia left common iliac artery up to 1.6 cm. There seems to be some stranding in the pelvis which could be chron ic. Suggestion of some diverticular change. Dedicated CT abdomen and pelvis can be performed if patie nt is symptomatic and there is concern for acute diverticulitis. Vertebral body heights are preserved. There is grade 1 anterolisthesis at L4-L5 secondary to hypertrophic facet arthropathy. Moderate to advanced degenerative disc disease at multiple levels especially L2-L3, L4-L5, L5-S1 with narrowed, desiccated and bulging discs. Along with ligamentum flavum thickening, there may be a mild narrowing of the spinal canal L2-L3 and L4-L5. No obvious canal compromise is seen. Area of inferior endplate irregularity noted posteriorly at L2 probably degenerative. Similar larger area is present towards the left at L4, sagittal image 28 and coronal image 21. Prominent endplate Sc hmorl's nodes on a background of osteopenia is suspected. On the left, changes result in moderate neuroforaminal stenosis at L4-L5 and mild at additional level s. On the right, changes result in mild multilevel neuroforaminal stenosis. IMPRESSION: 1. SMALL AREA OF INFERIOR ENDPLATE IRREGULARITY POSTERIORLY AT L2 PROBABLY DEGENERATIVE. A SCHMORL'S NODE IS ALSO POSSIBLE ON A BACKGROUND OF OSTEOPENIA. ENDPLATE EROSION RELATING TO OSTEOMYELITIS IS CO NSIDERED UNLIKELY GIVEN DISC VACUUM RATHER THAN FLUID AT THIS LEVEL. 2. SIMILAR BUT LARGER AREA ALONG THE LEFT LATERAL L4 INFERIOR ENDPLATE. AGAIN, THIS COULD REPRESENT A SCHMORL'S NODE. NEGATIVE INFLAMMATORY MARKERS WOULD BE EFFECTIVE IN EXCLUDING THE POSSIBILITY OF OST EOMYELITIS. IF INDICATED, LUMBAR SPINE MRI WITHOUT AND WITH CONTRAST CAN BE PERFORMED. 3. MODERATE TO ADVANCED DEGENERATIVE DISC DISEASE THROUGHOUT WELL HYPERTROPHIC FACET ARTHROPATH Y. GRADE 1 ANTEROLISTHESIS OF L4-L5. 4. MILD NARROWING OF THE SPINAL CANAL AT L2-L3 L4-L5. VARIABLE MILD TO MODERATE NEURAL FORAMINAL STEN OSES OUTLINED ABOVE. 5. SOME FAT STRANDING NOTED IN THE PELVIS. THERE ARE SOME DIVERTICULAR CHANGES ALSO SEEN. IF CONCERN FOR ACUTE DIVERTICULITIS OR OTHER INFLAMMATORY PROCESS IN THE PELVIS, DEDICATED CONTRAST ENHANCED CT ABDOMEN AND PELVIS CAN BE PERFORMED.
== END | disposition home or self-care (01) ==
LOC: RADCTMAIN 11:34
PROVIDERS: ATTEND Physical Medicine & Rehabilitation
DX: M48.062 Spinal stenosis, lumbar region with neurogenic claudication (principal); M43.16 Spondylolisthesis, lumbar region; M51.36 Other intervertebral disc degeneration, lumbar region; M51.46 Schmorl's nodes, lumbar region
CPT/HCPCS: 72131

== ENCOUNTER → 2020-06-03 | Day surgery (SDC) | payer MEDICARE, BC ==
[2020-05-31 15:49] VITALS: BMI 24.6
[~2020-06-03] MED LIST changes: -ACETAMINOPHEN TAB 500 MG TAB PO ONE; -HYDROmorphone 0.5 MG/0.5 ML SYRINGE IVP PRN; -MELOXICAM 7.5 MG TAB PO ONE; -MORPHINE SULFATE 2 MG/ML SYRINGE IV PRN; +SODIUM CHLORIDE 0.9% 1,000 ML IV SCH; +SODIUM CHLORIDE 0.9% 500 ML 500 ML IV ONE; -TRANEXAMIC ACID 1,000 MG in SODIUM CHLORIDE 0.9% 50 ML IVPB ONE; -VANCOMYCIN 1,000 MG in SODIUM CHLORIDE 0.9% 250 ML IVPB ONE
[2020-06-03 10:49] VITALS: BP 132/73; PULSE 63; RESP 16; TEMP 97.8
[2020-06-03 10:49] LABS: Anisocytosis Slight; Basophils # (A) 0.1 k/uL (0-0.2); Basophils % (A) 1 %; Eosinophils # (A) 0.2 k/uL (0-0.7); Eosinophils % (A) 2 %; HCT 45.3 % (39.0-53.0); HGB 14.3 gm/dL (13.0-17.5); Lymphocytes # (A) 1.4 k/uL (1.0-4.8); Lymphocytes % (A) 16 %; MCH 27.3 pg (25.0-35.0); MCHC 31.6 g/dL (31.0-37.0); MCV 86.5 fL (80.0-100.0); Monocytes # (A) 0.7 k/uL (0-1.0); Monocytes % (A) 8 %; Neutrophils # (A) 5.7 k/uL (1.3-7.7); Neutrophils % (A) 70 %; Platelet Count 201 k/uL (150-450); RBC 5.23 m/uL (4.30-5.90); RDW 16.1 % (11.5-15.5); WBC 8.2 k/uL (3.8-10.6)
[2020-06-03 11:13] LABS: Albumin 4.3 g/dL (3.5-5.0); Calcium 9.7 mg/dL (8.4-10.2); Potassium 4.5 mmol/L (3.5-5.1); Total Bilirubin 0.8 mg/dL (0.2-1.3)
[2020-06-03] MEDS: IOPAMIDOL-250 50ML BTL IV ONE ×2 (11:21→11:34)
--- NOTE | 2020-06-03 15:04 | P.PCN ---
Preoperative Diagnosis: Diagnosis Cardio myopathy Right-sided dual-chamber pacemaker, complete heart block Bradycardia requiring pacing Plan for upgrade to a biventricular system for heart failure management Patient has a history of cardiomyopathy documented about 2 years back, EF 35% at that time Chronic renal failure Procedure #1 Cinefluoroscopy of the leads Right-sided pacemaker Screw-in atrial lead in the right atrial appendage Screw-in RV lead in the RV apex No fractures or breaks noted Procedure #2 left upper extremity venogram 15 mL of IV dye injected in the left arm. Patent axillary and subclavian vein on the left side Procedure #3, right upper extremity venogram 50 mL of IV dye injected into the right arm. Patent right axillary and subcl [place] vein Patent SVC Plan I had a detailed discussion with the patient and his If his LV systolic function is greater than 35-50 % then he should undergo upgrade to a biventricular system for heart failure management However if his left ventricular ejection fraction is less than 35% then one could consider upgrade to a biventricular ICD versus a biventricular pacemaker From a technical standpoint for by mental ICD, he would need the ICD lead as well as an LV lead. In addition the size of the generator is an important consideration because Eriberto has a small body frame with thin skin on the chest. In addition the issue of lead noise on account of mechanical traction between the RV pacing lead in the ICD lead, resulting in inappropriate shocks is initial. In addition subclavian vein compression of the leads is also an issue. Upgrade to a biventricular pacemaker with resultant improvement in heart failure and this is what Eriberto really cares about, improvement in his heart waldo lure status. I would recommend an upgrade to a biventricular pacemaker with maximization of medical treatment I reviewed his labs Hemoglobin 14.3, platelet count 201,000 Sodium 140, potassium 4.5, BUN 83, creatinine 2.93 TSH 3.5, normal
== END ==
LOC: CATHEP 10:18
PROVIDERS: ATTEND Internal Medicine Clinical Cardiac Electrophysiology
DX: Z45.018 Encounter for adjustment and management of other part of cardiac pacemaker (principal); I42.8 Other cardiomyopathies; I44.2 Atrioventricular block, complete; I13.0 Hypertensive heart and chronic kidney disease with heart failure and stage 1 through stage 4 chronic kidney disease, or unspecified chronic kidney disease; I50.23 Acute on chronic systolic (congestive) heart failure; N18.9 Chronic kidney disease, unspecified; I49.3 Ventricular premature depolarization; G25.81 Restless legs syndrome; L97.909 Non-pressure chronic ulcer of unspecified part of unspecified lower leg with unspecified severity; E78.5 Hyperlipidemia, unspecified; Z95.2 Presence of prosthetic heart valve; Z72.0 Tobacco use; Z79.82 Long term (current) use of aspirin; Z79.899 Other long term (current) drug therapy; Z88.6 Allergy status to analgesic agent; Z91.048 Other nonmedicinal substance allergy status
CPT/HCPCS: 36005; 75822; 76000; 80061; 80053; 84443; 85025; Q9966; 75820

== ENCOUNTER 2020-07-13 11:01 | Day surgery (SDC) | payer MEDICARE, BC ==
[2020-07-08 12:06] VITALS: BMI 24.3
[~2020-07-13 11:01] MED LIST changes: +LACTATED RINGERS 1,000 ML IV SCH; -SODIUM CHLORIDE 0.9% 500 ML 500 ML IV ONE
[2020-07-13] MEDS ORDERED: VANCOMYCIN 1,000 MG in SODIUM CHLORIDE 0.9% 250 ML IVPB STA (12:00)
[2020-07-13] MEDS ORDERED: LIDOCAINE 1% INJ 10MG/ML (20 ML MDV) ONE ×3 (15:12→15:19)
[2020-07-13] MEDS ORDERED: ROCURONIUM 10 MG/ML (10 ML VIAL) IV ONE (15:19)
[2020-07-13] MEDS ORDERED: PROPOFOL 10 MG/ML 20 ML VIAL IV ONE (15:19)
[2020-07-13] MEDS ORDERED: NEOSTIGMINE 1 MG/ML 10 ML VIAL ONE (15:19)
[2020-07-13] MEDS ORDERED: PHENYLEPHRINE-0.9% NACL SYG 1 MG/10 ML SYRINGE ONE (15:19)
[2020-07-13] MEDS ORDERED: GLYCOPYRROLATE 0.2 MG/ML 2 ML VIAL ONE (15:19)
[2020-07-13] MEDS ORDERED: SUCCINYLCHOLINE CHLORIDE 100 MG/5 ML SYR IV ONE (15:19)
[2020-07-13] MEDS ORDERED: SODIUM CHLORIDE 0.9% 500 ML 500 ML IV ONE (15:34)
[2020-07-13] MEDS: ceFAZolin 1,000 MG in SODIUM CHLORIDE 0.9% IRRIGATIO 250 ML IRRIGATION ONE ×2 (15:53→16:08)
[2020-07-13] MEDS: LIDOCAINE 1% INJ 10MG/ML (20 ML MDV) SQ ONE ×2 (16:11→17:12)
[2020-07-13] MEDS ORDERED: IOPAMIDOL-370 100ML BTL INJ ONE (17:08)
[2020-07-13] MEDS ORDERED: ACETAMINOPHEN TAB 325 MG TAB PO PRN (18:35)
--- NOTE | 2020-07-13 18:52 | P.EPPROC ---
- EP Procedure Note Electrophysiology Procedure Note: Extended procedure Elderly gentleman with severe heart failure and cardio myopathy with severe LV dysfunction, 100% RV pacing with a right-sided permanent pacemaker, complete heart block, pacemaker dependent The original plan was to implant an upgrade the right-sided dual-chamber pacemaker to a biventricular pacemaker However this was a difficult coronary sinus access. New was a valve at the office the coronary sinus that made cannulated and the Ag sinus challenging A left-sided approach was employed An incision was made in the left pectoral area. Access was obtained in the left subclavian/axillary vein Appropriate sized sheaths were placed A long sheath was placed and the Ag sinus was accessed Despite going on the left side this was still challenging Ag sinus access on a cord of the valve. Multiple sheaths and initiate were used The Ag sinus is finally accessed and a venogram was performed and the Ag sinus The patient had a lateral vein, posterior lateral vein as well as the middle cardiac vein Selective cannulation of the lateral vein was performed Lead was placed in this pain in the distal tip was placed in the 2 Buttry for stability Sheath was then removed after testing the lead. The lead was secured to the underlying pectoralis muscle at 2 different sites making a loop LV lead thresholds in the proximal poles of 3 and 4 were 2.2 V at 0.4 ms, pacing impedance of 930 ohms The right-sided pocket was also accessed an incision was made the pacemaker generator was delivered. This had been programmed to be 00 at 60 beats a minute patient has complete heart block The leads were freed a deep subfascial pocket was made to accommodate the new generator The LV lead was then tunneled on the anterior chest wall using the tunneling device The new device is implanted and the atrial LV and RV leads were connected to this device The right-sided pocket was closed in 3 layers The left-sided pocket was closed in 3 layers RV pacing threshold 1 V at 1 ms pacing impedance 330 ohms The patient was in an atrial tachycardia with organized activity and clear surface atraumatic deflections This will need to be addressed in the future Currently the pacemaker has been programmed to VVIR 60-1:30 bpm with an LV RV offset 20 ms Biventricular pacemaker model number [id number], serial number [id number] LV lead model #00663-35, serial number [id number] Final impression 84-year-old male patient with Severe cardio myopathy Progressive and Severe heart failure symptoms, class III 100% RV pacing Complete heart block, pacemaker dependent Implantation of a left-sided LV lead on account of the difficulties encountered with cannulating the coronary sinus This lead was tunneled to the right side The right-sided dual-chamber pacemaker was explanted A biventricular pacemaker was implanted under general anesthesia
--- NOTE | 2020-07-13 19:11 | XR ---
EXAMINATION TYPE: XR chest 1V portable DATE OF EXAM: 07/13/2020 COMPARISON: 03/22/2020 HISTORY: Lead placement TECHNIQUE: FINDINGS: Heart is normal. Lungs are clear of infiltrate. There is no heart failure. There is right a xillary pacemaker with 2-lead tips in the right ventricle and over the right atrium. There are sterna l wires. There is additional third lead over the mediastinum and the tip could be in the superior nallely a cava. IMPRESSION: No active cardiopulmonary disease. There is revision of the pacemaker compared to old kaykay banda
--- NOTE | 2020-07-13 19:13 | P.PRLE ---
RE: rEiberto Schuster Dear Dr. Nicolette Wei underwent upgrade to a biventricular pacemaker for severe cardio myopathy and complete heart block He did well intraoperatively However he also has an atrial tachycardia rather than atrial fibrillation and maintaining sinus rhythm with benefit him from a heart failure standpoint In addition he will need anticoagulation for stroke prevention I did make some changes in his medications and switch to carvedilol He does have creatinine of 2.3 and I I will back off on losartan while maximizing beta blockers. Thank you for entrusting me with the care of the patient Warm regards Sincerely Rodolfo Coley
[2020-07-13] MEDS ORDERED: ASPIRIN 81 MG PO SCH (21:00)
[2020-07-13] MEDS ORDERED: ATORVASTATIN 10 MG TAB PO SCH (21:00)
[2020-07-13] MEDS: carvediloL 6.25 MG TAB PO SCH (21:16)
[2020-07-14 02:02] VITALS: PULSE 60
[2020-07-14] MEDS: carvediloL 6.25 MG TAB PO SCH (06:19)
[2020-07-14] MEDS: APIXABAN 2.5 MG TABLET PO SCH ×2 (08:09→10:32)
[2020-07-14 08:42] VITALS: BP 118/60; RESP 15; TEMP 97.5
[2020-07-14] MEDS ORDERED: TAMSULOSIN 0.4 MG CAP.ER.24H PO SCH (09:00)
[2020-07-14] MEDS ORDERED: FUROSEMIDE 40 MG TAB PO SCH (09:00)
[2020-07-14] MEDS ORDERED: LOSARTAN 50 MG TAB PO SCH (09:00)
--- NOTE | 2020-07-14 11:10 | P.DS ---
Providers Attending physician: Rodolfo Coley Primary care physician: Janneth Nicolette [facility] Hospital Course: Patient is resting comfortably in bed. No dizziness lightheadedness no bruising he's had minimal pain Vitals are stable blood pressure is normal Yesterday switched him to carvedilol for metoprolol on account of his current myopathy We also detected atrial tachycardia and started him on anticoagulation Unfortunately ELIQUIS was not covered by his insurance We will give him a month's supply of ELIQUIS and check if Pradaxa xarelto is covered On examination blood pressure is normal There is no bruising no hematoma Heart sounds are normal there is no S3 gallop murmurs Abdomen soft nontender No JVD Orthopnea Minimal lower extremity edema Impression Progressive heart failure symptoms, class III heart failure Severe LV dysfunction Complete heart block 100% RV pacing originally right-sided dual-chamber pacemaker implanted 2 years back at an outside hospital Status post upgrade to a biventricular pacemaker The LV lead was placed by the left subclavian vein This was subsequently tunneled under the anterior chest to the right side and connected to a new biventricular pacemaker The old dual-chamber pacemaker generator was explanted Procedures performed under general anesthesia Extended duration procedure, challenging coronary sinus access and LV lead placement, hence change in plans and left-sided LV lead implant performed Patient is an atrial tachycardia He will need anticoagulation for stroke prevention He has chronic kidney disease creatinine 2.3 Dose of losartan reduced to 50 mg by mouth daily Metoprolol tartrate will be switched to carvedilol 6.25 mg twice daily and the dose maximized Later ablation of the atrial tachycardia will be considered Plan Discharge home after IV antibiotics chest x-ray, device interrogation Follow-up in one week in the device clinic In the future we have to address atrial tachycardia to provide AV synchrony and improvement in heart failure status This was discussed with the patient and his Plan - Discharge Summary Discharge Rx Participant: No New Discharge Prescriptions: New RX: carvediloL [Coreg] 6.25 mg PO BID-W/MEALS #180 tab RX: Apixaban [Eliquis] 2.5 mg PO BID #180 tablet Continue RX: Latanoprost Ophth [Xalatan 0.005%] 1 drops BOTH EYES HS RX: Multivit-Min/FA/Lycopen/Lutein [Centrum Silver Tablet] 1 tab PO DAILY RX: Fenofibrate,Micronized [Fenofibrate] 134 mg PO DAILY RX: Tamsulosin [Flomax] 0.4 mg PO DAILY RX: Cholecalciferol [Vitamin D3 (25 Mcg = 1000 Iu)] 1,000 unit PO HS RX: Albuterol Nebulized [Ventolin Nebulized] 2.5 mg INHALATION RT-Q6H PRN PRN Reason: Bronchospasm RX: Simvastatin [Zocor] 20 mg PO HS RX: Vit C/E/Zn/Coppr/Lutein/Zeaxan [Preservision Areds 2 Softgel] 1 cap PO BI D RX: Acetaminophen [Tylenol Arthritis] 1,300 mg PO TID PRN PRN Reason: Pain RX: Aspirin [Adult Low Dose Aspirin EC] 81 mg PO HS RX: Ferrous Sulfate [Iron (65 MG Elemental)] 325 mg PO HS RX: Furosemide [Lasix] 40 mg PO DAILY RX: Hydrochlorothiazide [hydroCHLOROthiazide] 12.5 mg PO DAILY RX: Losartan Potassium [Cozaar] 100 mg PO DAILY Discontinued Metoprolol Tartrate [Lopressor] 100 mg PO BID Discharge Medication List RX: Cholecalciferol [Vitamin D3 (25 Mcg = 1000 Iu)] 1,000 unit PO HS 09/13/15 [History] RX: Fenofibrate,Micronized [Fenofibrate] 134 mg PO DAILY 09/13/15 [History] RX: Latanoprost Ophth [Xalatan 0.005%] 1 drops BOTH EYES HS 09/13/15 [History] RX: Multivit-Min/FA/Lycopen/Lutein [Centrum Silver Tablet] 1 tab PO DAILY 09/13/15 [History] RX: Tamsulosin [Flomax] 0.4 mg PO DAILY 09/13/15 [History] RX: Albuterol Nebulized [Ventolin Nebulized] 2.5 mg INHALATION RT-Q6H PRN 03/21/17 [History] RX: Simvastatin [Zocor] 20 mg PO HS 03/21/17 [History] RX: Acetaminophen [Tylenol Arthritis] 1,300 mg PO TID PRN 12/03/17 [History] RX: Vit C/E/Zn/Coppr/Lutein/Zeaxan [Preservision Areds 2 Softgel] 1 cap PO BID 12/03/17 [History] RX: Aspirin [Adult Low Dose Aspirin EC] 81 mg PO HS 05/31/20 [History] RX: Ferrous Sulfate [Iron (65 MG Elemental)] 325 mg PO HS 05/31/20 [History] RX: Furosemide [Lasix] 40 mg PO DAILY 05/31/20 [History] RX: Hydrochlorothiazide [hydroCHLOROthiazide] 12.5 mg PO DAILY 05/31/20 [History] RX: Losartan Potassium [Cozaar] 100 mg PO DAILY 05/31/20 [History] RX: Apixaban [Eliquis] 2.5 mg PO BID #180 tablet 07/14/20 [Rx] RX: carvediloL [Coreg] 6.25 mg PO BID-W/MEALS #180 tab 07/14/20 [Rx] Follow up Appointment(s)/Referral(s): [facility] [Provider Group] - 07/20/20 2:30 pm (Device check) Rodolfo Coley MD [STAFF PHYSICIAN] - 09/01/20 4:30 pm (Sunday) Patient Instructions/Handouts: A-fib (Atrial Fibrillation) (DC), Safe Use of Anticoagulants (DC), Pacemaker (DC) Activity/Diet/Wound Care/Special Instructions: PATIENT EDUCATION MATERIAL Instructions following a heart rhythm device implant. 1. Keep dressing DRY for 5 DAYS. You may cover the area with Saran or Cling Wrap, prior to a shower. 2. The dressing will be removed in the Device Clinic at [facility]. Absorbable sutures were used to close the wound. 3. Avoid raising the left arm above the shoulder level. 4 week restriction 4. Avoid arm movements, like backscratching, rubbing the head, or pulling on a cord. 4 weeks restriction 5. Gentle range of motion movements of the shoulder, closest to the incision should be performed to avoid a frozen shoulder. (Pendulum exercises of the shoulder) 6. The opposite arm may be used freely. 7. Avoid driving for 7 days. 8. Avoid activities such as golfing, swimming, weed whacking, lifting more than 10 pounds weight, bowling, gymnastics and weight training/lifting. (6 weeks restriction) 9. Activities such as wood chopping with an axe, pull-ups in the gymnasium, power lifting, arc-welding, being close to home induction cooktops will always be a problem. 10. Arm sling is only a reminder not to raise the arm above the head. You do not need to keep the arm completely immobilized. Your free to move the arm and use it and for normal activities. In case of any problems, please call [facility], Noy Ziegler, @ [phone], Attention: Device Clinic Device clinic follow-up in 5 days Follow-up with primary underwriting support specialist in 2-3 months
== END 2020-07-14 12:04 | disposition home or self-care (01) ==
LOC: CATHEP 11:01 → 3NCARDOBS 18:20 → 3SCARD 18:42 → CATHEP 07-14 12:04
PROVIDERS: ATTEND Internal Medicine Clinical Cardiac Electrophysiology
DX: I44.2 Atrioventricular block, complete (principal); I42.8 Other cardiomyopathies; I47.1 Supraventricular tachycardia; I13.0 Hypertensive heart and chronic kidney disease with heart failure and stage 1 through stage 4 chronic kidney disease, or unspecified chronic kidney disease; I50.22 Chronic systolic (congestive) heart failure; I49.8 Other specified cardiac arrhythmias; I48.91 Unspecified atrial fibrillation; J44.9 Chronic obstructive pulmonary disease, unspecified; N18.9 Chronic kidney disease, unspecified; Z91.048 Other nonmedicinal substance allergy status; Z88.6 Allergy status to analgesic agent; Z91.041 Radiographic dye allergy status; Z79.899 Other long term (current) drug therapy; Z79.82 Long term (current) use of aspirin; Z79.01 Long term (current) use of anticoagulants; Z95.2 Presence of prosthetic heart valve
CPT/HCPCS: 33225; 33229; 71045; C1750; C1769 ×3; C1892; C1900; C2621; J3370; J2710; J0690 ×3; J2001; J2370; J0330; J2704; Q9967

== ENCOUNTER → 2022-03-30 | Outpatient (CLI) | payer MEDICARE, BC ==
[2022-03-30 18:30] LABS: African American GFR (CKD) 37.6 (60.0-200.0); Albumin 3.8 g/dL (3.8-4.9); Albumin/Globulin Ratio 1.34 (1.60-3.17); Anion Gap 10.9 mmol/L (10.00-18.00); BUN/Creat Ratio 23.08 Ratio (12.00-20.00); Calcium 9.3 mg/dL (8.7-10.3); Carbon Dioxide 27.2 mmol/L (20.0-27.5); Globulin 2.8 g/dL (1.6-3.3); Non-African American GFR(CKD) 32.4 (60.0-200.0); Potassium 5.2 mmol/L (3.5-5.5); Total Bilirubin 0.6 mg/dL (0.30-1.20); Total Protein 6.6 g/dL (6.2-8.2)
== END | disposition home or self-care (01) ==
LOC: LABWHC1 12:02
PROVIDERS: ATTEND Internal Medicine
DX: I42.9 Cardiomyopathy, unspecified (principal); N19 Unspecified kidney failure
CPT/HCPCS: 36415; 80053; 83880

== ENCOUNTER 2022-12-06 11:08 | Inpatient (IN) | payer MEDICARE, BC ==
[2022-12-06] MEDS ORDERED: LIDOCAINE 1% INJ 10MG/ML (30 ML VIAL-PF) SQ ONE (11:16)
[2022-12-06 11:48] LABS: Anisocytosis Slight; Basophils # (A) 0.1 k/uL (0-0.2); Basophils % (A) 1 %; Eosinophils # (A) 0.3 k/uL (0-0.7); Eosinophils % (A) 4 %; HGB 11.3 gm/dL (13.0-17.5); Lymphocytes # (A) 0.9 k/uL (1.0-4.8); Lymphocytes % (A) 11 %; MCH 28.9 pg (25.0-35.0); MCHC 32.3 g/dL (31.0-37.0); MCV 89.5 fL (80.0-100.0); Mean Platelet Volume 8.3; Monocytes # (A) 0.6 k/uL (0-1.0); Monocytes % (A) 7 %; Neutrophils # (A) 6.1 k/uL (1.3-7.7); Neutrophils % (A) 73 %; Platelet Count 239 k/uL (150-450); RBC 3.91 m/uL (4.30-5.90); RDW 16.7 % (11.5-15.5); WBC 8.3 k/uL (3.8-10.6)
--- NOTE | 2022-12-06 11:54 | XR ---
EXAMINATION TYPE: XR chest 1V portable DATE OF EXAM: 12/06/2022 HISTORY: Pneumothorax COMPARISON: 07/13/2020 TECHNIQUE: Single view of the chest is submitted. FINDINGS: Large left-sided pneumothorax estimated at 75%. No evidence for mediastinal shift at this time. The r ight lung is clear. There is no evidence for focal infiltrate. The heart is stable. Hilar and mediastinal structures are within normal limits. Degenerative changes are seen of the dorsal spine. IMPRESSION: 1. Large left-sided pneumothorax estimated at 75%.
[2022-12-06 12:25] LABS: Albumin 3.8 g/dL (3.5-5.0); Calcium 9.3 mg/dL (8.4-10.2); Potassium 4.5 mmol/L (3.5-5.1); Total Bilirubin 0.8 mg/dL (0.2-1.3); Total Protein 6.9 g/dL (6.3-8.2)
--- NOTE | 2022-12-06 12:41 | XR ---
EXAMINATION TYPE: XR chest 1V portable DATE OF EXAM: 12/06/2022 HISTORY: Pneumothorax follow-up COMPARISON: Earlier in the day TECHNIQUE: Single view of the chest is submitted. FINDINGS: Left-sided chest tube is in place. Pneumothorax persists although is improved. Pneumothorax is estima emeterio at 15-20%. Persistent left hilar masslike density. Consider CT chest for further evaluation. The heart is stable. Hilar and mediastinal structures are within normal limits. Degenerative changes are seen of the dorsal spine. IMPRESSION: 1. Left-sided chest tube is in place. Pneumothorax persists although is improved. Pneumothorax is es timated at 15-20%. Persistent left hilar masslike density. This could reflect expanding lung parenchy ma of there are other possibilities not excluded. Consider CT chest for further evaluation.
[2022-12-06] MEDS ORDERED: ACETAMINOPHEN TAB 325 MG TAB PO PRN (12:58)
[2022-12-06] MEDS ORDERED: NALOXONE 0.4 MG/ML 1 ML VIAL IV PRN (12:58)
--- NOTE | 2022-12-06 12:58 | ED ---
General Adult HPI - General Chief complaint: Shortness of Breath Stated complaint: sob Time Seen by Provider: 12/06/22 11:16 Source: patient, RN notes reviewed, old records reviewed Mode of arrival: wheelchair Limitations: no limitations - History of Present Illness Initial comments: 87-year-old male with dyspnea, diagnosed with pneumothorax as an outpatient. Chest x-ray repeated, showing a complete left-sided pneumothorax on the left. Denies central chest pain. Denies fever. He has had cough which was significant about one week ago which she believes resulted in the pneumothorax. He had a sharp pain at that time. He was sent in by pulmonology. - Related Data Home Medications Medication Instructions Recorded Confirmed Fenofibrate,Micronized 134 mg PO DAILY 09/13/15 12/06/22 [Fenofibrate] Latanoprost Ophth [Xalatan 0.005%] 1 drops BOTH EYES HS 09/13/15 12/06/22 Multivit-Min/FA/Lycopen/Lutein 1 tab PO DAILY 09/13/15 12/06/22 [Centrum Silver Tablet] Tamsulosin [Flomax] 0.4 mg PO DAILY 09/13/15 12/06/22 Acetaminophen [Tylenol Arthritis] 1,300 mg PO TID PRN 12/03/17 12/06/22 Vit C/E/Zn/Coppr/Lutein/Zeaxan 1 cap PO BID 12/03/17 12/06/22 [Preservision Areds 2 Softgel] Aspirin [Adult Low Dose Aspirin EC] 81 mg PO HS 05/31/20 12/06/22 Furosemide [Lasix] 40 mg PO DAILY 05/31/20 12/06/22 Atorvastatin [Lipitor] 20 mg PO HS 12/06/22 12/06/22 Cholecalciferol [Vitamin D3 (25 25 mcg PO HS 12/06/22 12/06/22 Mcg = 1000 Iu)] Ipratropium-Albuterol Nebulize 3 ml INHALATION RT-DAILY 12/06/22 12/06/22 [Duoneb 0.5 mg-3 mg/3 ml Soln] Previous Rx's Medication Instructions Recorded Apixaban [Eliquis] 2.5 mg PO BID #180 tablet 07/14/20 carvediloL [Coreg] 6.25 mg PO BID-W/MEALS #180 tab 07/14/20 Allergies Allergy/AdvReac Type Severity Reaction Status Date / Time Iodine and Iodide Containing AdvReac Unknown STATES Verified 12/06/22 12:40 Produc UNABLE TO HAVE DUE TO KIDNEY DISEASE. NSAIDS (Non-Steroidal AdvReac Unknown STATES Verified 12/06/22 12:40 Anti-Inflamma UNABLE TO TAKE DUE TO KIDNEY DISEASE. adhesive tape AdvReac Rash/Hives Verified 12/06/22 12:40 Review of Systems ROS Statement: Those systems with pertinent positive or pertinent negative responses have been documented in the HPI. ROS Other: All systems not noted in ROS Statement are negative. Past Medical History Past Medical History: Heart Failure, COPD, Eye Disorder, Hearing Disorder / Deafness, Hyperlipidemia, Hypertension, Musculoskeletal Disorder, Pulmonary Embo porter (PE), Renal Disease, Vascular Disorder Additional Past Medical History / Comment(s): CMP. Glaucoma, macular degeneration bilat. Degenerative arthritis multiple joints, chronic kidney failure, severe diverticulitis, spinal stenosis, bruises easily, sl blockage in legs.PTX History of Any Multi-Drug Resistant Organisms: None Reported Past Surgical History: Appendectomy, Bowel Resection, Cardiac Valve Replacement, Heart Catheterization, Joint Replacement, Pacemaker Additional Past Surgical History / Comment(s): Aortic valve replacement August 2010, Pacemaker placed September 2011, new battery 12/2019 est, kevin cataracts, kevin hip replacements, epidural inj 12/2019 est, Cinefluoroscopy of leasd 06/03/20 Past Anesthesia/Blood Transfusion Reactions: No Reported Reaction Type of Cardiac Device: Biventricular Pacemaker, Permanent Pacemaker Device Placement Date:: 07-13-20 Past Psychological History: No Psychological Hx Reported Smoking Status: Former smoker Past Alcohol Use History: None Reported Past Drug Use History: None Reported - Past Family History Daughter(s) Family Medical History: Cancer Additional Family Medical History / Comment(s): . Father Family Medical History: Cancer General Exam Limitations: no limitations General appearance: alert, in distress Head exam: Present: atraumatic, normocephalic Eye exam: Present: normal appearance, PERRL ENT exam: Present: normal exam Neck exam: Present: normal inspection. Absent: tenderness, meningismus Respiratory exam: Present: decreased breath sounds (On the left). Absent: respiratory distress Cardiovascular Exam: Present: regular rate, normal rhythm GI/Abdominal exam: Present: soft. Absent: distended, tenderness Extremities exam: Present: normal inspection, normal capillary refill Neurological exam: Present: alert, oriented X3, CN II-XII intact. Absent: motor sensory deficit Psychiatric exam: Present: normal affect, normal mood Skin exam: Present: warm, dry, intact. Absent: cyanosis, diaphoretic Course Vital Signs 12/06/22 12/06/22 12/06/22 11:12 11:28 11:46 Temperature 97.4 F L Pulse Rate 60 67 60 Respiratory 22 14 18 Rate Blood Pressure 149/90 145/68 151/60 O2 Sat by Pulse 98 99 97 Oximetry 12/06/22 12/06/22 12:00 12:17 Temperature Pulse Rate 60 67 Respiratory 16 22 Rate Blood Pressure 151/60 139/69 O2 Sat by Pulse 99 99 Oximetry EKG Findings - EKG Comments: EKG Findings:: EKG: Ventricular paced rhythm rate of 60, QRS duration 167, QTC 426 Procedures - [place] Protocol (Time Out) Procedure Performed:: thoravent insertion Performing Provider: Gianni Petersen Nurse: Maria Luisa Ward Patient Identification (2 identifiers required): Verbal, Arm Band, Name, B irthdate Patient/Legal Quality Intern has Confirmed: Identity, Site, Procedure, Consent Site: left chest Site Marked: Yes Site Verified With Patient/Guardian: Yes - Chest Tube Insertion Consent Obtained: written consent Side of Procedure: left Indication: Pneumothorax Placed on monitor/pulse oximetry: Yes Site Prep: Chloroprep Local Anesthesia: Lidocaine 1% Amount (mLs): 7 Insertion Site: Other (Second intercostal space, midclavicular clavicular line) Scalpel: #11 Open into Pleural Space Using: Trocar Tube Size (Z[place]ian): Other (11) Returns: Air Sutured in Place: No Attached to Suction: Yes Type of Suction: Pleuravac Repeat X-ray Results: Other (Slight improvement in aeration) Patient Tolerated Procedure: well Complications: Other (Difficult to introduce chest tube) Medical Decision Making - Medical Decision Making Was pt. sent in by a medical professional or institution ([facility], [facility], urgent care, hospital, or shelter...) When possible be specific @ -[Sent in from pulmonology's office] Did you speak to anyone other than the patient for history (EMS, parent, family, police, friend...)? What history was obtained from this source @ -[History obtained from the patient and his spouse] Did you review nursing and triage notes (agree or disagree)? Why? @ -[I reviewed and agree with nursing and triage notes] Were old charts reviewed (outside hosp., previous admission, EMS record, old EKG, old radiological studies, urgent care reports/EKG's, shelter records)? Report findings @ -Reviewed previous chest x-ray Differential Diagnosis (chest pain, altered mental status, abdominal pain women, abdominal pain men, vaginal bleeding, weakness, fever, dyspnea, syncope, headache, dizziness, GI bleed, back pain, seizure, CVA, palpatations, mental health, musculoskeletal)? @ -Differential Dyspnea: Coronary syndrome, arrhythmia, tamponade, asthma, COPD, pulmonary embolism, pneumonia, pneumothorax, pulmonary effusion, anaphylaxis, diabetic ketoacidosis, flailed chest, pulmonary contusion, diaphragmatic rupture, anemia, neuromuscular, this is not meant to be an all-inclusive list. EKG interpreted by me (3pts min.). @ -[As above] X-rays interpreted by me (1pt min.). @ -Reviewed initial chest x-ray showing complete left-sided pneumothorax, reviewed chest x-ray after chest tube, showing slight improved aeration of the lung CT interpreted by me (1pt min.). @ -[None done] U/S interpreted by me (1pt. min.). @ -[None done] What testing was considered but not performed or refused? (CT, X-rays, U/S, labs)? Why? @ -[None] What meds were considered but not given or refused? Why? @ -[None] Did you discuss the management of the patient with other professionals (professionals i.e. , PA, [facility], lab, RT, psych nurse, vp digital marketing social media and crm, frame feeder, teacher, juvenile justice officer, nurse case manager)? Give summary @ -[No] Was smoking cessation discussed for >3mins.? @ -[No] Was critical care preformed (if so, how long)? @ -[No] Were there social determinants of health that impacted care today? How? (Homelessness, low income, unemployed, alcoholism, drug addiction, transportation, low edu. Level, literacy, decrease access to med. care, alf, rehab)? @ -[No] Was there de-escalation of care discussed even if they declined (Discuss DNR or withdrawal of care, Hospice)? DNR status @ -[No] What co-morbidities impacted this encounter? (DM, HTN, Smoking, COPD, CAD, Cancer, CVA, ARF, Chemo, Hep., AIDS, mental health diagnosis, sleep apnea, morbid obesity)? @ -[None] Was patient admitted / discharged? Hospital course, mention meds given and route, prescriptions, significant lab abnormalities, going to OR and other pertinent info. @ -[87-year-old male presenting with pneumothorax on the outpatient setting. Likely one week in duration. I discussed case with Dr. Della flaherty for pulmonology who does recommend chest tube placement in the emergency department. This was placed by myself. Returned significant amount of air and serosanguineous fluid. Patient tolerated the procedure well. I did obtain EKG and basic laboratory testing which is unremarkable. He will be admitted to [facility] with Dr. Horan on consult. Will continue chest tube to suction at this time.] Undiagnosed new problem with uncertain prognosis? @ no Drug Therapy requiring intensive monitoring for toxicity (Heparin, Nitro, Insulin, Cardizem)? @ -[No] Were any procedures done? @ -[No] Diagnosis/symptom? @ -[Spontaneous pneumothorax] Acute, or Chronic, or Acute on Chronic? @ -Acute Uncomplicated (without systemic symptoms) or Complicated (systemic symptoms)? @ -Complicated Side effects of treatment? @ -[No] Exacerbation, Progression, or Severe Exacerbation? @ -[No] Poses a threat to life or bodily function? How? (Chest pain, [place], [place], pneumonia, PE, COPD, DKA, ARF, appy, cholecystitis, CVA, Diverticulitis, Homicidal, Suicidal, threat to staff... and all critical care pts) @ -Risk of persistent pneumothorax, progression to 10 is pneumothorax, hypoper fusiin - Lab Data Result diagrams: 12/06/22 11:31 12/06/22 11:31 Lab Results 12/06/22 12/06/22 Range/Units 11:31 11:31 WBC 8.3 (3.8-10.6) k/uL RBC 3.91 L (4.30-5.90) m/uL Hgb 11.3 L (13.0-17.5) gm/dL Hct 35.0 L (39.0-53.0) % MCV 89.5 (80.0-100.0) fL MCH 28.9 (25.0-35.0) pg MCHC 32.3 (31.0-37.0) g/dL RDW 16.7 H (11.5-15.5) % Plt Count 239 (150-450) k/uL MPV 8.3 Neutrophils % 73 % Lymphocytes % 11 % Monocytes % 7 % Eosinophils % 4 % Basophils % 1 % Neutrophils # 6.1 (1.3-7.7) k/uL Lymphocytes # 0.9 L (1.0-4.8) k/uL Monocytes # 0.6 (0-1.0) k/uL Eosinophils # 0.3 (0-0.7) k/uL Basophils # 0.1 (0-0.2) k/uL Anisocytosis Slight Sodium 141 (137-145) mmol/L Potassium 4.5 (3.5-5.1) mmol/L Chloride 101 (98-107) mmol/L Carbon Dioxide 31 H (22-30) mmol/L Anion Gap 9 mmol/L BUN 76 H (9-20) mg/dL Creatinine 2.22 H (0.66-1.25) mg/dL Est GFR (CKD-EPI)AfAm 29 (>60 ml/min/1.73 sqM) Est GFR (CKD-EPI)NonAf 25 (>60 ml/min/1.73 sqM) Glucose 123 H (74-99) mg/dL Calcium 9.3 (8.4-10.2) mg/dL Total Bilirubin 0.8 (0.2-1.3) mg/dL AST 60 H (17-59) U/L ALT 30 (4-49) U/L Alkaline Phosphatase 112 (38-126) U/L Total Protein 6.9 (6.3-8.2) g/dL Albumin 3.8 (3.5-5.0) g/dL Disposition Clinical Impression: Spontaneous pneumothorax Disposition: ADMITTED IP TO THIS [facility] Condition: Stable Is patient prescribed a controlled substance at d/c from ED?: No Referrals: Janneth Will MD [Primary Care Provider] - 1-2 days Time of Disposition: 12:58
--- NOTE | 2022-12-06 13:31 | P.HPIM ---
History of Present Illness H&P Date: 12/06/22 History of Presenting Illness: Patient is a very pleasant 87-year-old male with a past medical history of CAD status post stenting and pacemaker placement, aortic valve replacement 2009, PVD on anticoagulant with Eliquis, CKD stage IV, and hyperlipidemia. He presented to the emergency department secondary to reports of shortness of breath. Patient reported one week ago he was eating toast with cinnamon and states that he inhaled some of the cinnamon and immediately began coughing and had since been experiencing a difficult time breathing so he called and made an appointm ent with his engineering department chair. Patient went in to be evaluated by his engineering department chair, Dr. Will, this morning and was found to have a large left-sided pneumothorax and sent straight to the emergency department. Upon arrival to the emergency department patient underwent full evaluation. A chest x-ray was completed revealing large left-sided pneumothorax consisting of approximately 75%. Chest tube then placed in the emergency department. Labs were completed and reviewed. CBC revealing normocytic anemia with stable hemoglobin of 11.3 and BMP showing slight elevation in renal function with BUN 76, creatinine 2.22, and GFR of 25 with baseline creatinine of 1.8. Repeat chest x-ray completed st atus post insertion of left sided chest tube, radiology report again reviewed showing left-sided chest tube is in place and pneumothorax persisting but showing improvement estimated at 15-20% from previous 75%, chest x-ray also concerning for persistent left hilar masslike density. Patient, laboratory findings, and imaging were discussed in detail with the ED physician. Patient admitted under our services to stepdown unit with telemetry with consultation to pulmonology. Review of systems: Pertinent positives and negatives as discussed in HPI, a complete review of systems was performed and all other systems are negative. Physical exam: Vital signs reviewed and stable. General: Nontoxic, no distress and appears stated age. Derm: Skin warm and dry, normal coloration for ethnicity. Head: Atraumatic, normocephalic and symmetric. Eyes: EOMs intact, no lid lag, and anicteric sclera Mouth: no lip lesions, mucus membranes moist Cardiovascular: regular rate and rhythm with normal S1S2, systolic murmur, positive posterior tibial pulses bilaterally, and cap refill < 2 seconds. Lungs: Respirations even, regular, and unlabored on room air. Lungs CTA bilaterally, no rhonchi, no rales, no wheezing, and no accessory muscle usage. Chest tube in place-Left anterior chest Abdominal: soft, nontender to palpation, no guarding, no appreciable organomegaly Ext: ROM intact. No gross muscle atrophy, no edema, no contractures Neuro: Speech clear, face symmetrical and CN II-XII grossly intact with no noted focal neuro deficits Psych: Alert and oriented to person, place, time, and situation. Appropriate and pleasant affect. Assessment and Plan of Care: Large left-sided pneumothorax Persistent left hilar masslike density -Chest x-ray was completed and radiology report reviewed revealing large left- sided pneumothorax consisting of approximately 75%. -Chest tube then placed in the emergency department. -Repeat chest x-ray completed status post insertion of left sided chest tube, radiology report again reviewed showing left-sided chest tube is in place and pneumothorax persisting but showing improvement estimated at 15-20% from previous 75%, chest x-ray also concerning for persistent left hilar masslike density. -Pulmonology consulted. -May consider CT of chest to further evaluate left hilar masslike density pending evaluation and further recommendations from engineering department chair. -Order placed for chest tube management -Eliquis and aspirin held pending evaluation by engineering department chair. Acute kidney injury on stage IV chronic kidney disease. -Labs were completed and reviewed. CBC revealing normocytic anemia with stable hemoglobin of 11.3 and BMP showing slight elevation in renal function with BUN 76, creatinine 2.22, and GFR of 25 with baseline creatinine of 1.8. -Secondary to acute kidney injury on chronic kidney disease we will hold Lasix and place patient on gentle IV fluid hydration with 0.9% normal saline at 100 mL's per hour and repeat morning BMP to monitor for resolution of MAKAYLA. Chronic medical conditions include: CAD status post stenting and pacemaker placement, aortic valve replacement 2009, PVD on anticoagulant with Eliquis, BPH, macular degeneration, and hyperlipidemia -Home medications reviewed. At this time we will reorder atorvastatin, ca rvedilol, fenofibrate, plantar process ophthalmology drops, and Flomax. Lasix being held at this time secondary to acute kidney injury. Eliquis and aspirin held pending evaluation by engineering department chair. Patient, laboratory findings, and imaging were discussed in detail with the ED physician. Patient admitted under our services to stepdown unit with telemetry with consultation to pulmonology. The patient is admitted with an anticipated greater than 2 midnight stay for evaluation of large left-sided pneumothorax CODE STATUS: Full code DVT prophylaxis: SCDs, will resume Eliquis and aspirin once cleared by engineering department chair to resume Discussed with: patient, RN, and ED physician. Anticipated discharge date: clinical course to determine Anticipated discharge place: home Patient was seen independently by Nurse Practitioner. This document was prepared using [employer] dictation software. Please allow for errors in principal administrative clerk while rare they do occur. Quinn Hough NP rendered care for this patient independently, reviewed the findings and plan as documented in the note above. I did not physically speak with or examine the patient on this date. Past Medical History Past Medical History: Heart Failure, COPD, Eye Disorder, Hearing Disorder / Deafness, Hyperlipidemia, Hypertension, Musculoskeletal Disorder, Pulmonary Embolus (PE), Renal Disease, Vascular Disorder Additional Past Medical History / Comment(s): CMP. Glaucoma, macular degeneration bilat. Degenerative arthritis multiple joints, chronic kidney failure, severe diverticulitis, spinal stenosis, bruises easily, sl blockage in legs.PTX History of Any Multi-Drug Resistant Organisms: None Reported Past Surgical History: Appendectomy, Bowel Resection, Cardiac Valve Replacement, Heart Catheterization, Joint Replacement, Pacemaker Additional Past Surgical History / Comment(s): Aortic valve replacement August 2010, Pacemaker placed September 2011, new battery 12/2019 est, kevin cataracts, kevin hip replacements, epidural inj 12/2019 est, Cinefluoroscopy of leasd 06/03/20 Past Anesthesia/Blood Transfusion Reactions: No Reported Reaction Type of Cardiac Device: Biventricular Pacemaker, Permanent Pacemaker Device Placement Date:: 07-13-20 Past Psychological History: No Psychological Hx Reported Smoking Status: Former smoker Past Alcohol Use History: None Reported Past Drug Use History: None Reported - Past Family History Daughter(s) Family Medical History: Cancer Additional Family Medical History / Comment(s): . Father Family Medical History: Cancer Medications and Allergies Home Medications Medication Instructions Recorded Confirmed Type Fenofibrate,Micronized 134 mg PO DAILY 09/13/15 12/06/22 History [Fenofibrate] Latanoprost Ophth [Xalatan 0.005%] 1 drops BOTH EYES HS 09/13/15 12/06/22 History Multivit-Min/FA/Lycopen/Lutein 1 tab PO DAILY 09/13/15 12/06/22 History [Centrum Silver Tablet] Tamsulosin [Flomax] 0.4 mg PO DAILY 09/13/15 12/06/22 History Acetaminophen [Tylenol Arthritis] 1,300 mg PO TID PRN 12/03/17 12/06/22 History Vit C/E/Zn/Coppr/Lutein/Zeaxan 1 cap PO BID 12/03/17 12/06/22 History [Preservision Areds 2 Softgel] Aspirin [Adult Low Dose Aspirin EC] 81 mg PO HS 05/31/20 12/06/22 History Furosemide [Lasix] 40 mg PO DAILY 05/31/20 12/06/22 History Apixaban [Eliquis] 2.5 mg PO BID #180 tablet 07/14/20 12/06/22 Rx carvediloL [Coreg] 6.25 mg PO BID-W/MEALS #180 tab 07/14/20 12/06/22 Rx Atorvastatin [Lipitor] 20 mg PO HS 12/06/22 12/06/22 History Cholecalciferol [Vitamin D3 (25 25 mcg PO HS 12/06/22 12/06/22 History Mcg = 1000 Iu)] Ipratropium-Albuterol Nebulize 3 ml INHALATION RT-DAILY 12/06/22 12/06/22 History [Duoneb 0.5 mg-3 mg/3 ml Soln] Allergies Allergy/AdvReac Type Severity Reaction Status Date / Time Iodine and Iodide Containing AdvReac Unknown STATES Verified 12/06/22 12:40 Produc UNABLE TO HAVE DUE TO KIDNEY DISEASE. NSAIDS (Non-Steroidal AdvReac Unknown STATES Verified 12/06/22 12:40 Anti-Inflamma UNABLE TO TAKE DUE TO KIDNEY DISEASE. adhesive tape AdvReac Rash/Hives Verified 12/06/22 12:40 Physical Exam Vitals: Vital Signs Temp Pulse Resp BP Pulse Ox 12/06/22 13:00 63 15 137/56 100 12/06/22 12:30 64 13 139/69 100 12/06/22 12:17 67 22 139/69 99 12/06/22 12:00 60 17 151/60 100 12/06/22 11:46 60 18 151/60 97 12/06/22 11:30 60 19 145/68 12/06/22 11:28 67 14 145/68 99 12/06/22 11:12 97.4 F L 60 22 149/90 98 Intake and Output 12/05/22 12/06/22 12/06/22 22:59 06:59 14:59 Output Total 0 Balance 0 Output: Chest Tube Drainage 0 Thora-Vent Left Anterior 0 Chest Other: Weight 62.142 kg Results CBC & Chem 7: 12/07/22 16:17 12/07/22 06:30 Labs: Abnormal Lab Results - Last 24 Hours (Table) 12/06/22 12/06/22 Range/Units 11:31 11:31 RBC 3.91 L (4.30-5.90) m/uL Hgb 11.3 L (13.0-17.5) gm/dL Hct 35.0 L (39.0-53.0) % RDW 16.7 H (11.5-15.5) % Lymphocytes # 0.9 L (1.0-4.8) k/uL Carbon Dioxide 31 H (22-30) mmol/L BUN 76 H (9-20) mg/dL Creatinine 2.22 H (0.66-1.25) mg/dL Glucose 123 H (74-99) mg/dL AST 60 H (17-59) U/L
[2022-12-06] MEDS: carvediloL 6.25 MG TAB PO SCH (17:11)
[2022-12-06] MEDS: SODIUM CHLORIDE 0.9% 1,000 ML IV SCH (19:43)
[2022-12-06] MEDS: VIT A,C & E-LUTEIN-MINERALS 1 EACH TAB PO SCH (19:44)
[2022-12-06] MEDS: ATORVASTATIN 20 MG TAB PO SCH (19:44)
[2022-12-06] MEDS: LATANOPROST 0.005% OPHTH DROPS 2.5 ML BTL BOTH EYES SCH (21:04)
[2022-12-07] MEDS: SODIUM CHLORIDE 0.9% 1,000 ML IV SCH ×3 (04:35→19:48)
[2022-12-07] MEDS: MORPHINE SULFATE 4 MG/ML SYRINGE IV PRN (04:35)
--- NOTE | 2022-12-07 05:23 | P.CNPUL ---
History of Present Illness Consult date: 12/07/22 Requesting physician: Gianni Petersen Reason for consult: pneumothorax Chief complaint: Chest pain starting approximately 1 week ago History of present illness: I'm seeing this patient in new consultation today 12/07/2022 after being sent over from the pulmonary office with a spontaneous pneumothorax. 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 Patient was apparently eating a piece of cinnamon toast 7 days ago when he aspirated some of the cinnamon causing him to have significant coughing fit. After this, the patient developed some severe chest pain which he attributes to his pneumothorax. Denies any chest trauma. The pneumothorax was found when the patient presented to Dr. Lew's office yesterday. On arrival to [facility] is presenting chest x-ray showed a large left-sided pneumothorax estimated at 75%. Patient did have a left Thoravent placed in the ER. The most recent chest x-ray performed after the procedure shows a reduction in the left-sided pneumothorax to 15-20% with a persistent left hilar masslike density which could reflect expanding lung parenchyma. The Thoravent is currently placed to suction at -20 cm H2O, and there is about 30 mL of serosanguineous drainage in the chamber. Patient is currently resting comfortably in bed, on 2 L nasal cannula, in no acute distress. He is oxygenating at 98%. Patient's CBC on arrival showed a WBC count 8.3, hemoglobin 11.3, hematocrit 35, platelets 239,000. BMP on arrival shows sodium 141, potassium 4.5, chloride 101, serum CO2 31, BUN 76, creatinine chronically elevated at 2.2, glucose 123. Patient is currently receiving bronchodilators. He is receiving morphine when necessary for pain control. Normal saline is infusing at 100 ML's per hour. Vital signs are stable. Review of Systems REVIEW OF SYSTEMS: CONSTITUTIONAL: Denies any recent significant weight loss or weight gain. EYES: Denies change in vision. EARS, NOSE, MOUTH, THROAT: Denies headaches, denies sore throat. CARDIOVASCULAR: Denies radiating chest pain, palpitations or syncopal episodes. RESPIRATORY: Denies shortness of breath, cough, congestion or hemoptysis. R eports intermittent chest pain with coughing. GASTROINTESTINAL: Denies change in appetite, abdominal pain, nausea and vomiting, or diarrhea GENITOURINARY: Denies hematuria, denies infections. MUSKULOSKELETAL: Denies pain, denies swelling. INTEGUMENTARY: Denies rash, denies eczema. NEUROLOGICAL: Denies recent memory loss, no recent seizure activity. PSYCHIATRIC: Denies anxiety, denies depression. HEMATOLOGIC/LYMPHATIC: Denies anemia, denies enlarged lymph node Past Medical History Past Medical History: Heart Failure, COPD, Eye Disorder, Hearing Disorder / Deafness, Hyperlipidemia, Hypertension, Musculoskeletal Disorder, Pulmonary Embolus (PE), Renal Disease, Vascular Disorder Additional Past Medical History / Comment(s): CMP. Glaucoma, macular degeneration bilat. Degenerative arthritis multiple joints, chronic kidney waldo lure, severe diverticulitis, spinal stenosis, bruises easily, sl blockage in legs.PTX History of Any Multi-Drug Resistant Organisms: None Reported Past Surgical History: Appendectomy, Bowel Resection, Cardiac Valve Replacement, Heart Catheterization, Joint Replacement, Pacemaker Additional Past Surgical History / Comment(s): Aortic valve replacement August 2010, Pacemaker placed September 2011, new battery 12/2019 est, kevin cataracts, kevin hip replacements, epidural inj 12/2019 est, Cinefluoroscopy of leasd 06/03/20 Past Anesthesia/Blood Transfusion Reactions: No Reported Reaction Type of Cardiac Device: Biventricular Pacemaker, Permanent Pacemaker Device Placement Date:: 07-13-20 Past Psychological History: No Psychological Hx Reported Smoking Status: Former smoker Past Alcohol Use History: None Reported Past Drug Use History: None Reported - Past Family History Daughter(s) Family Medical History: Cancer Additional Family Medical History / Comment(s): . Father Family Medical History: Cancer Medications and Allergies Home Medications Medication Instructions Recorded Confirmed Type Fenofibrate,Micronized 134 mg PO DAILY 09/13/15 12/06/22 History [Fenofibrate] Latanoprost Ophth [Xalatan 0.005%] 1 drops BOTH EYES HS 09/13/15 12/06/22 History Multivit-Min/FA/Lycopen/Lutein 1 tab PO DAILY 09/13/15 12/06/22 History [Centrum Silver Tablet] Tamsulosin [Flomax] 0.4 mg PO DAILY 09/13/15 12/06/22 History Acetaminophen [Tylenol Arthritis] 1,300 mg PO TID PRN 12/03/17 12/06/22 History Vit C/E/Zn/Coppr/Lutein/Zeaxan 1 cap PO BID 12/03/17 12/06/22 History [Preservision Areds 2 Softgel] Aspirin [Adult Low Dose Aspirin EC] 81 mg PO HS 05/31/20 12/06/22 History Furosemide [Lasix] 40 mg PO DAILY 05/31/20 12/06/22 History Apixaban [Eliquis] 2.5 mg PO BID #180 tablet 07/14/20 12/06/22 Rx carvediloL [Coreg] 6.25 mg PO BID-W/MEALS #180 tab 07/14/20 12/06/22 Rx Atorvastatin [Lipitor] 20 mg PO HS 12/06/22 12/06/22 History Cholecalciferol [Vitamin D3 (25 25 mcg PO HS 12/06/22 12/06/22 History Mcg = 1000 Iu)] Ipratropium-Albuterol Nebulize 3 ml INHALATION RT-DAILY 12/06/22 12/06/22 History [Duoneb 0.5 mg-3 mg/3 ml Soln] Allergies Allergy/AdvReac Type Severity Reaction Status Date / Time Iodine and Iodide Containing AdvReac Unknown STATES Verified 12/06/22 12:40 Produc UNABLE TO HAVE DUE TO KIDNEY DISEASE. NSAIDS (Non-Steroidal AdvReac Unknown STATES Verified 12/06/22 12:40 Anti-Inflamma UNABLE TO TAKE DUE TO KIDNEY DISEASE. adhesive tape AdvReac Rash/Hives Verified 12/06/22 12:40 Physical Exam Vitals: Vital Signs Temp Pulse Pulse Resp BP BP Pulse Ox 12/07/22 03:12 97.6 F 60 16 114/60 98 12/06/22 23:13 98.0 F 60 16 122/64 99 12/06/22 19:38 97.9 F 60 16 132/70 100 12/06/22 16:00 97.3 F L 60 16 128/65 99 12/06/22 14:32 97.6 F 60 16 156/75 100 12/06/22 13:30 60 17 125/58 100 12/06/22 13:00 63 15 137/56 100 12/06/22 12:30 64 13 139/69 100 12/06/22 12:17 67 22 139/69 99 12/06/22 12:00 60 17 151/60 100 12/06/22 11:46 60 18 151/60 97 12/06/22 11:30 60 19 145/68 12/06/22 11:28 67 14 145/68 99 12/06/22 11:12 97.4 F L 60 22 149/90 98 Intake and Output 12/06/22 12/06/22 12/07/22 14:59 22:59 06:59 Intake Total 240 540 Output Total 0 305 175 Balance 240 235 -175 Intake: Oral 240 540 Output: Chest Tube Drainage 0 30 Thora-Vent Left Anterior 0 30 Chest Urine 275 175 Other: Voiding Method Urinal Urinal Urinal # Voids 1 2 1 Weight 62.142 kg 59.5 kg GENERAL EXAM: Alert, 87-year-old white male, comfortable in no apparent distress. HEAD: Normocephalic and atraumatic EYES: Normal reaction of pupils, equal size. NOSE: Clear with pink turbinates. THROAT: No erythema or exudates. NECK: No masses, no JVD. CHEST: No chest wall deformity. Left ThoraVent in place LUNGS: Equal air entry with no crackles, wheeze, rhonchi or dullness. On 2 L nasal cannula. No conversational dyspnea or accessory muscle use.. CVS: S1 and S2 normal with no audible murmur, regular rhythm at 60 bpm. No extra heart sounds ABDOMEN: No hepatosplenomegaly, active bowel sounds, no guarding or rigidity. SPINE: No scoliosis or deformity SKIN: No rashes CENTRAL NERVOUS SYSTEM: No focal deficits, tone is normal in all 4 extremities. EXTREMITIES: There is no peripheral edema, clubbing, or cyanosis. Peripheral pulses diminished but are intact. Results - Laboratory Findings CBC and BMP: 12/06/22 11:31 12/06/22 11:31 Abnormal lab findings: Abnormal Labs 12/06/22 12/06/22 11:31 11:31 RBC 3.91 L Hgb 11.3 L Hct 35.0 L RDW 16.7 H Lymphocytes # 0.9 L Carbon Dioxide 31 H BUN 76 H Creatinine 2.22 H Glucose 123 H AST 60 H - Diagnostic Findings Chest x-ray: image reviewed Assessment and Plan Assessment: Spontaneous left pneumothorax. ThoraVent was placed in the ER resulting in partial reexpansion of a large left 75% pneumothorax. Most recent chest x-ray shows a 15-20% pneumothorax. ThoraVent is currently placed to suction at -20 cm H2O. Acute hypoxic respiratory failure secondary to above. Currently on 2 L nasal cannula oxygenating at 98%. This can probably be weaned off as the patient is actually at 98%. Moderate to severe background COPD. Managed outpatient with Cole. Hypertension Hyperlipidemia Nonischemic cardiomyopathy Biventricular pacemaker Coronary artery disease Remote history of pulmonary embolism Peripheral vascular disease Chronic kidney disease stage IV BPH Glaucoma Ex-smoker, approximately 40 pack years Plan: Patient's medications, chest x-ray, labs were reviewed ThoraVent in place to suction at -20 cm H2O Repeat chest x-ray in the morning Encourage incentive spirometer Wean supplemental oxygen to maintain oxygen saturation of 92% or greater Resume bronchodilators Pain control with when necessary morphine and Tylenol Increase activity as tolerated We will continue to follow I have personally seen and examined the patient, performed the documentation and the assessment and plan as written. Number of minutes spent on the visit:20 Time with Patient: Greater than 30
[2022-12-07] MEDS: carvediloL 6.25 MG TAB PO SCH ×2 (06:42→18:37)
--- NOTE | 2022-12-07 07:41 | XR ---
EXAMINATION TYPE: XR chest 1V DATE OF EXAM: 12/07/2022 COMPARISON: 12/06/2022 HISTORY: 87-year-old male follow-up pneumothorax TECHNIQUE: Single frontal view of the chest is obtained. FINDINGS: Right anterior chest wall pacemaker generator with right atrial, right ventricular, and co ronary sinus leads. Old median sternotomy wires along the superior half of sternum. Left heart margin now obscured by adjacent pleural parenchymal opacity. A left-sided permacatheter is present. Some severino bcutaneous emphysema along the left upper chest wall is now present. There is worsening aeration thro ughout the left lung with a new opacity and development of a small left apical pneumothorax now. IMPRESSION: 1. Left-sided pleural catheter redemonstrated but now with the development of a small left apical pne umothorax. 2. Additional worsening of aeration throughout the left hemithorax with extensive opacity having deve loped. This obscures the left heart margin.
[2022-12-07 07:58] LABS: Anisocytosis Slight; HCT 26.1 % (39.0-53.0); MCH 29.5 pg (25.0-35.0); MCHC 32.4 g/dL (31.0-37.0); Platelet Count 240 k/uL (150-450); RBC 2.87 m/uL (4.30-5.90); RDW 16.4 % (11.5-15.5); WBC 9.2 k/uL (3.8-10.6)
[2022-12-07] MEDS ORDERED: IPRATROPIUM-ALBUTEROL 3 ML NEB INHALATION SCH (08:00)
[2022-12-07 08:09] LABS: HGB 8.5 gm/dL (13.0-17.5)
[2022-12-07 08:13] LABS: Calcium 8.5 mg/dL (8.4-10.2); Magnesium 2.4 mg/dL (1.6-2.3); Potassium 4.6 mmol/L (3.5-5.1)
[2022-12-07] MEDS: ALBUTEROL NEBULIZED 2.5 MG/3 ML INHALATION SCH (08:30)
[2022-12-07] MEDS: IPRATROPIUM 0.5 MG/2.5 ML NEBU INHALATION SCH (08:31)
[2022-12-07] MEDS: TAMSULOSIN 0.4 MG CAP.ER.24H PO SCH (08:49)
[2022-12-07] MEDS: MULTIVITAMINS, THERA 1 EACH TAB PO SCH (08:49)
[2022-12-07] MEDS: FENOFIBRATE 160 MG TAB PO SCH (08:50)
[2022-12-07] MEDS: VIT A,C & E-LUTEIN-MINERALS 1 EACH TAB PO SCH ×2 (08:50→19:48)
[2022-12-07] MEDS ORDERED: FUROSEMIDE 40 MG TAB PO SCH (09:00)
[2022-12-07] MEDS: ONDANSETRON 4 MG/2 ML VIAL IVP PRN (13:29)
--- NOTE | 2022-12-07 14:28 | P.PN ---
Subjective Progress Note Date: 12/07/22 History of Presenting Illness: Patient is a very pleasant 87-year-old male with a past medical history of CAD status post stenting and pacemaker placement, aortic valve replacement 2009, PVD on anticoagulant with Eliquis, CKD stage IV, and hyperlipidemia. He presented to the emergency department secondary to reports of shortness of breath. Patient reported one week ago he was eating toast with cinnamon and states that he inhaled some of the cinnamon and immediately began coughing and had since been experiencing a difficult time breathing so he called and made an appointment with his loft worker head. Patient went in to be evaluated by his loft worker head, Dr. Will, this morning and was found to have a large left-sided pneumothorax and sent straight to the emergency department. Upon arrival to the emergency department patient underwent full evaluation. A chest x-ray was completed revealing large left-sided pneumothorax consisting of approximately 75%. Chest tube then placed in the emergency department. Labs were completed a nd reviewed. CBC revealing normocytic anemia with stable hemoglobin of 11.3 and BMP showing slight elevation in renal function with BUN 76, creatinine 2.22, and GFR of 25 with baseline creatinine of 1.8. Repeat chest x-ray completed status post insertion of left sided chest tube, radiology report again reviewed showing left-sided chest tube is in place and pneumothorax persisting but showing imp rovement estimated at 15-20% from previous 75%, chest x-ray also concerning for persistent left hilar masslike density. Patient, laboratory findings, and imaging were discussed in detail with the ED physician. Patient was admitted under our services to stepdown unit with telemetry with consultation to pulmonology. Repeat chest x-ray was completed this morning in radiology report reviewed revealing left-sided pleural catheter redemonstrated but now reporting the development of small left apical pneumothorax with additional worsening of aeration throughout the left hemithorax with extensive opacity having developed. Physical exam: Patient seen and fully evaluated at bedside this morning. Patient reports feeling much better today and feels as though he is breathing better. He currently denies having any cough or congestion, chest pain or palpitations, feeling short of breath. He is currently on 2 L O2 via nasal cannula with SpO2 of 97%. Patient appears to have mild to moderate bloody drainage and chest tube and collection chamber. Vital signs reviewed and stable. General: Nontoxic, no distress and appears stated age. Derm: Skin warm and dry, normal coloration for ethnicity. Head: Atraumatic, normocephalic and symmetric. Eyes: EOMs intact, no lid lag, and anicteric sclera Mouth: no lip lesions, mucus membranes moist Cardiovascular: regular rate and rhythm with normal S1S2, systolic murmur, positive posterior tibial pulses bilaterally, and cap refill < 2 seconds. Lungs: Respirations even, regular, and unlabored on room air. Lungs CTA bilaterally, no rhonchi, no rales, no wheezing, and no accessory muscle usage. Chest tube in place-Left anterior chest Abdominal: soft, nontender to palpation, no guarding, no appreciable organomegaly Ext: ROM intact. No gross muscle atrophy, no edema, no contractures Neuro: Speech clear, face symmetrical and CN II-XII grossly intact with no noted focal neuro deficits Psych: Alert and oriented to person, place, time, and situation. Appropriate and pleasant affect. Assessment and Plan of Care: Large left-sided pneumothorax Persistent left hilar masslike density -Pt had aspiration event and subsequently developed atelactasis and pneumothorax. Concern for persistent foreign body, consider bronchoscopy if no improvement. Pulmonology to advise. -Repeat chest x-ray was completed this morning in radiology report reviewed revealing left-sided pleural catheter redemonstrated but now reporting the development of small left apical pneumothorax with additional worsening of aeration throughout the left hemithorax with extensive opacity having developed. -Pulmonology following and discussed plan of care with loft worker head, Dr. Hull regarding x-ray reports as well as report of persistent left hilar masslike den sity, Dr. Hull recommending holding off on CT for further evaluation until after ThoraVent is removed. -Continue chest tube management. -Eliquis and aspirin continued to be held at this time. Acute blood loss anemia on anemia of chronic disease -CBC reviewed showing normocytic normochromic anemia with hemoglobin of 8.5 and hematocrit is 26.1. -Hemoglobin upon arrival to the hospital was 11.3, repeat morning labs show hemoglobin dropped nearly 3 g down to 8.5. Patient only has a documented 37 mL of bloody drainage from chest tube and no other signs or reports of bleeding, unclear if documentation of output is accurate. Discussed with RN need to have close monitoring and accurate output. Order placed for repeat hemoglobin at 4 PM and Will follow-up with repeat hemoglobin this afternoon and transfuse if needed for hemoglobin less than 7. -Eliquis and aspirin to continue to be held at this time. Acute kidney injury on stage IV chronic kidney disease. -Labs were completed and reviewed. BMP showing slight improvement of renal function with BUN 67, creatinine 2.02, and GFR of 28 (compared to yesterday's BUN 76, creatinine 2.22, and GFR of 25 ) -We will continue with gentle IV fluid hydration with 0.9% normal saline at 100 mL's per hour and repeat morning BMP to monitor for resolution of MAKAYLA. Chronic medical conditions include: CAD status post stenting and pacemaker placement, aortic valve replacement 2009, PVD on anticoagulant with Eliquis, BPH, macular degeneration, and hyperlipidemia -Continue atorvastatin, carvedilol, fenofibrate, Latanoprost ophthalmologic drops, and Flomax. We will continue to hold Lasix secondary to acute kidney injury. Eliquis and aspirin held secondary to acute blood loss anemia. CODE STATUS: Full code DVT prophylaxis: SCDs Discussed with: patient, RN, and loft worker head. Anticipated discharge date: clinical course to determine Anticipated discharge place: Home Patient was seen independently by Nurse Practitioner. This document was prepared using [employer] dictation software. Please allow for errors in care asst while rare they do occur. Quinn Hough NP rendered care for this patient independently, reviewed the findings and plan as documented in the note above. I did not physically speak with or examine the patient on this date. Objective - Vital Signs Vital signs: Vital Signs Temp 97.1 F L 12/07/22 08:00 Pulse 60 12/07/22 08:49 Resp 20 12/07/22 08:00 BP 133/60 12/07/22 08:00 Pulse Ox 99 12/07/22 08:34 FiO2 Intake & Output 12/06/22 12/07/22 12/07/22 18:59 06:59 18:59 Intake Total 240 540 118 Output Total 30 457 Balance 210 83 118 Weight 62.142 kg 59.5 kg Intake: Oral 240 540 118 Output: Chest Tube Drainage 30 7 Thora-Vent Left Anterior 30 7 Chest Urine 450 Other: Voiding Method Urinal Urinal # Voids 1 1 - Labs CBC & Chem 7: 12/07/22 16:17 12/07/22 06:30 Labs: Abnormal Lab Results - Last 24 Hours (Table) 03/22/23 03/22/23 03/23/23 Range/Units 11:31 11:31 06:30 RBC 3.91 L 2.87 L (4.30-5.90) m/uL Hgb 11.3 L 8.5 L D (13.0-17.5) gm/dL Hct 35.0 L 26.1 L (39.0-53.0) % RDW 16.7 H 16.4 H (11.5-15.5) % Lymphocytes # 0.9 L (1.0-4.8) k/uL Carbon Dioxide 31 H (22-30) mmol/L BUN 76 H (9-20) mg/dL Creatinine 2.22 H (0.66-1.25) mg/dL Glucose 123 H (74-99) mg/dL Magnesium (1.6-2.3) mg/dL AST 60 H (17-59) U/L 12/07/22 Range/Units 06:30 RBC (4.30-5.90) m/uL Hgb (13.0-17.5) gm/dL Hct (39.0-53.0) % RDW (11.5-15.5) % Lymphocytes # (1.0-4.8) k/uL Carbon Dioxide (22-30) mmol/L BUN 67 H (9-20) mg/dL Creatinine 2.02 H (0.66-1.25) mg/dL Glucose 122 H (74-99) mg/dL Magnesium 2.4 H (1.6-2.3) mg/dL AST (17-59) U/L
[2022-12-07 16:40] LABS: Anisocytosis Slight; HCT 23.9 % (39.0-53.0); HGB 7.5 gm/dL (13.0-17.5); Hypochromasia Slight; MCH 28.8 pg (25.0-35.0); MCHC 31.2 g/dL (31.0-37.0); MCV 92.5 fL (80.0-100.0); Mean Platelet Volume 8.4; Platelet Count 257 k/uL (150-450); RBC 2.59 m/uL (4.30-5.90); RDW 16.3 % (11.5-15.5); WBC 8.7 k/uL (3.8-10.6)
--- NOTE | 2022-12-07 19:14 | CT ---
EXAMINATION TYPE: CT chest wo con DATE OF EXAM: 12/07/2022 COMPARISON: None HISTORY: 4g drop in hgb, pneumo chest tube in place. CT DLP: 405.1 mGycm Automated exposure control for dose reduction was used. Images obtained from the thoracic inlet to the diaphragm without contrast. There is soft tissue air along the left chest wall. There is left-sided chest tube anteriorly. There is moderate size left pleural effusion. There is left-sided pneumothorax. There is some pulmonary con solidation and atelectasis in the left upper lobe. There is surgery at the aortic valve. There are sternal wires. There is some patchy infiltrate in bot h thickening right posterior lung base. Thoracic aorta is atheromatous. The thoracic spine is intact. No significant compression deformity. IMPRESSION: Large left-sided hydropneumothorax with also significant airspace consolidation in the left upper lob e. There is some atelectasis left lower lobe. Left upper lobe masslike consolidation measures 8 cm. Infiltrate and atelectasis and pleural thickening right posterior lung base. Left-sided chest tube no t in optimal position for drainage of the pleural fluid.
[2022-12-07] MEDS: LATANOPROST 0.005% OPHTH DROPS 2.5 ML BTL BOTH EYES SCH (19:48)
[2022-12-07] MEDS: ATORVASTATIN 20 MG TAB PO SCH (19:48)
[2022-12-07] MEDS ORDERED: HYDROmorphone 1 MG/ML 1 ML SYRINGE IVP STA (21:04)
[2022-12-07] MEDS ORDERED: HYDROmorphone 1 MG/ML 1 ML SYRINGE IVP PRN (21:26)
[2022-12-07] MEDS ORDERED: HYDROmorphone 0.5 MG/0.5 ML SYRINGE IVP PRN (21:27)
--- NOTE | 2022-12-07 21:50 | XR ---
EXAMINATION TYPE: XR chest 1V portable DATE OF EXAM: 12/07/2022 COMPARISON: Today HISTORY: Chest tube TECHNIQUE: Single view FINDINGS: There is left side chest tube and the tip is at the left lung apex. There is infiltrate in larger of the left lower lobe. There is coarse interstitial pulmonary density. There is some soft tis alpa air on the left lateral chest wall. There is left-sided pneumothorax with pleural space seen rufina g the left lateral chest wall. IMPRESSION: There is revision of a left-sided chest tube. There is decrease in the pleural fluid on t he left side compared to exam this morning. There is approximate 25% left-sided pneumothorax not sign ificantly different.
[2022-12-07] MEDS ORDERED: SODIUM CHLORIDE 0.9% 1,000 ML IV ONE (22:12)
--- NOTE | 2022-12-07 23:04 | OP ---
OPERATIVE REPORT DATE OF SERVICE : PROCEDURE PERFORMED: Left thoracostomy tube. PREOPERATIVE DIAGNOSIS: Left pneumothorax. POSTOPERATIVE DIAGNOSIS: Left pneumothorax. DESCRIPTION OF PROCEDURE: The procedure was done in the patient's room, room #252. I used a #28-[place] chest tube. The area was cleansed with chlorhexidine. It was sterilely draped. Next, a 1- inch incision was made at the area of the fifth intercostal space between the anterior and mid axillary line. Next, we used a forceps to blunt dissect through the tissues into the pleural space. There was immediate blood that came from the pleural space. A #28-[place] tube was directed atypically. The patient seemed to tolerate the procedure well. This chest tube was sutured into place properly. Sterile dressing was applied. The chest tube was hooked to a Pleur-evac. Suction was applied. The patient tolerated the procedure well. We did give the patient some Dilaudid 1 mg after the procedure. A stat chest x-ray was ordered. There was no immediate complication. Again, the patient tolerated the procedure well without any major complication. We will do a stat hemoglobin as well. MMODL / IJN: [id number] /
[2022-12-08 02:04] LABS: HGB 7.7 gm/dL (13.0-17.5); Hypochromasia Slight; MCH 29.9 pg (25.0-35.0); MCHC 32.2 g/dL (31.0-37.0); MCV 92.9 fL (80.0-100.0); Platelet Count 246 k/uL (150-450); Poikilocytosis Slight; RBC 2.58 m/uL (4.30-5.90); RDW 15.9 % (11.5-15.5); WBC 8.4 k/uL (3.8-10.6)
[2022-12-08 03:00] LABS: Band Neutrophils % 4 %; Eosinophils # (M) 0.17 k/uL (0-0.7); Lymphocytes # (M) 0.67 k/uL (1.0-4.8); Neutrophils % (M) 80 %; Nucleated Red Blood Cells 0 /100 WBC (0-0); Total Cells Counted 100
[2022-12-08] MEDS: NOREPINEPHRINE 4 MG in SODIUM CHLORIDE 0.9% 250 ML IV SCH ×2 (04:28→20:05)
[2022-12-08 06:35] LABS: Anisocytosis Slight; HCT 24.4 % (39.0-53.0); HGB 7.6 gm/dL (13.0-17.5); Hypochromasia Marked; MCH 29.5 pg (25.0-35.0); MCHC 31.3 g/dL (31.0-37.0); MCV 94.2 fL (80.0-100.0); Mean Platelet Volume 8.5; Platelet Count 248 k/uL (150-450); Poikilocytosis Slight; RBC 2.59 m/uL (4.30-5.90); RDW 16.3 % (11.5-15.5); WBC 10.3 k/uL (3.8-10.6)
[2022-12-08 06:43] LABS: Albumin 2.5 g/dL (3.5-5.0); Calcium 7.7 mg/dL (8.4-10.2); Magnesium 2.2 mg/dL (1.6-2.3); Potassium 5.7 mmol/L (3.5-5.1); Total Bilirubin 1.7 mg/dL (0.2-1.3); Total Protein 4.9 g/dL (6.3-8.2)
--- NOTE | 2022-12-08 07:22 | XR ---
EXAMINATION TYPE: XR chest 1V portable DATE OF EXAM: 12/08/2022 COMPARISON: 12/07/2022 HISTORY: SOB, Follow Up FINDINGS: Left-sided chest tube is in place. There is continued improvement in left-sided pneumothorax estimate d at approximately 10%. Left perihilar opacity persists although continues to be improving as well. Stable appearance of the cardio-mediastinal structures at this time. IMPRESSION: 1. There is continued improvement in left-sided pneumothorax estimated at approximately 10%. Left pe rihilar opacity persists although continues to be improving as well.
[2022-12-08] MEDS ORDERED: SODIUM POLYSTYRENE SULFONATE 15 GM/60 ML BOTTLE PO STA (07:41)
[2022-12-08] MEDS: ALBUTEROL NEBULIZED 2.5 MG/3 ML INHALATION SCH (07:46)
[2022-12-08] MEDS: IPRATROPIUM 0.5 MG/2.5 ML NEBU INHALATION SCH (07:46)
[2022-12-08] MEDS: TAMSULOSIN 0.4 MG CAP.ER.24H PO SCH (09:17)
[2022-12-08] MEDS: VIT A,C & E-LUTEIN-MINERALS 1 EACH TAB PO SCH ×2 (09:17→21:21)
[2022-12-08] MEDS: MULTIVITAMINS, THERA 1 EACH TAB PO SCH (09:17)
[2022-12-08] MEDS: SODIUM CHLORIDE 0.9% 1,000 ML IV SCH ×3 (09:18→21:46)
[2022-12-08] MEDS: carvediloL 6.25 MG TAB PO SCH ×2 (09:19→17:32)
[2022-12-08] MEDS: ONDANSETRON 4 MG/2 ML VIAL IVP PRN (09:21)
[2022-12-08] MEDS: MORPHINE SULFATE 4 MG/ML SYRINGE IV PRN (09:28)
--- NOTE | 2022-12-08 09:34 | P.GSCN ---
History of Present Illness Consult date: 12/08/22 Reason for Consult: Pneumothorax with chest tube placement Requesting physician: Quinn Hough History of present illness: This is an 87-year-old gentleman who follows outpatient with Dr. Will for primary care. 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 Apparently this gentleman had been eating toast a few days ago, developed a coughing fit, then developed chest pain. He reported to Dr. Will's office and was found to have a large left-sided pneumothorax on x-ray. He was then sent to the emergency room at [facility] with x-ray completed here confirming large left-sided pneumothorax estimated at about 75%. A left-sided thoravent was placed by the emergency room physicians with some re-expansion of the left lung. The patient apparently had a large amount of bloody drainage, he was sent for a CT scan yesterday which demonstrated a large left-sided hydropneumothorax with signific ant airspace consolidation in the left upper lobe measuring 8 cm as well as atelectasis in the left lower lobe. Decision was made to transfer patient to the intensive care unit and a thoracostomy tube was placed by Dr. Hull, with decrease in the left-sided pneumothorax to 25%. Chest x-ray ring still demonstrates 10% left-sided pneumothorax and the patient had approximate 1700 mL bloody drainage in his atrium. Of note the patient did receive 1 unit packed red blood cells yesterday for drop in hemoglobin to 7.5, hemoglobin was 11.3 on admission. Cardiothoracic surgery was consulted for management of his pneumothorax. Pt seen and evaluated with AD[facility] CLINICAL SPECIALIST above. Agree with her assessment and plan. This patient is a 87 y/o M on chronic eliquis who presented with a ptx as an outpatient. Initially thoravent was placed which was changed to a chest tube last evening with some bloody drainage. The ptx seems to be resolved and there is no active bleeding noted. Agree with continued conservative management. I spent 30 minutes reviewing the patients data and discussing the findings. Review of Systems Review of systems was completed and was negative except as noted - Cardiovascular Reports chest pain - Respiratory Reports cough Past Medical History Past Medical History: Coronary Artery Disease (CAD), Heart Failure, COPD, Eye Disorder, Hearing Disorder / Deafness, Hyperlipidemia, Hypertension, Musculoskeletal Disorder, Pulmonary Embolus (PE), Renal Disease, Vascular Diso rder Additional Past Medical History / Comment(s): CMP. Glaucoma, macular d egeneration bilat. Degenerative arthritis multiple joints, chronic kidney failure, severe diverticulitis, spinal stenosis, bruises easily, sl blockage in legs.PTX History of Any Multi-Drug Resistant Organisms: None Reported Past Surgical History: Appendectomy, Bowel Resection, Cardiac Valve Replacement, Heart Catheterization, Joint Replacement, Pacemaker Additional Past Surgical History / Comment(s): Aortic valve replacement August 2010, Pacemaker placed September 2011, new battery 12/2019 est, kevin cataracts, kevin hip replacements, epidural inj 12/2019 est, Cinefluoroscopy of leasd 06/03/20 Past Anesthesia/Blood Transfusion Reactions: No Reported Reaction Type of Cardiac Device: Biventricular Pacemaker, Permanent Pacemaker Device Placement Date:: 07-13-20 Past Psychological History: No Psychological Hx Reported Smoking Status: Former smoker Past Alcohol Use History: None Reported Past Drug Use History: None Reported - Past Family History Daughter(s) Family Medical History: Cancer Additional Family Medical History / Comment(s): . Father Family Medical History: Cancer Medications and Allergies Home Medications Medication Instructions Recorded Confirmed Type Fenofibrate,Micronized 134 mg PO DAILY 09/13/15 12/06/22 History [Fenofibrate] Latanoprost Ophth [Xalatan 0.005%] 1 drops BOTH EYES HS 09/13/15 12/06/22 History Multivit-Min/FA/Lycopen/Lutein 1 tab PO DAILY 09/13/15 12/06/22 History [Centrum Silver Tablet] Tamsulosin [Flomax] 0.4 mg PO DAILY 09/13/15 12/06/22 History Acetaminophen [Tylenol Arthritis] 1,300 mg PO TID PRN 12/03/17 12/06/22 History Vit C/E/Zn/Coppr/Lutein/Zeaxan 1 cap PO BID 12/03/17 12/06/22 History [Preservision Areds 2 Softgel] Aspirin [Adult Low Dose Aspirin EC] 81 mg PO HS 05/31/20 12/06/22 History Furosemide [Lasix] 40 mg PO DAILY 05/31/20 12/06/22 History Apixaban [Eliquis] 2.5 mg PO BID #180 tablet 07/14/20 12/06/22 Rx carvediloL [Coreg] 6.25 mg PO BID-W/MEALS #180 tab 07/14/20 12/06/22 Rx Atorvastatin [Lipitor] 20 mg PO HS 12/06/22 12/06/22 History Cholecalciferol [Vitamin D3 (25 25 mcg PO HS 12/06/22 12/06/22 History Mcg = 1000 Iu)] Ipratropium-Albuterol Nebulize 3 ml INHALATION RT-DAILY 12/06/22 12/06/22 History [Duoneb 0.5 mg-3 mg/3 ml Soln] Allergies Allergy/AdvReac Type Severity Reaction Status Date / Time Iodine and Iodide Containing AdvReac Unknown STATES Verified 12/06/22 12:40 Produc UNABLE TO HAVE DUE TO KIDNEY DISEASE. NSAIDS (Non-Steroidal AdvReac Unknown STATES Verified 12/06/22 12:40 Anti-Inflamma UNABLE TO TAKE DUE TO KIDNEY DISEASE. adhesive tape AdvReac Rash/Hives Verified 12/06/22 12:40 Surgical - Exam Vital Signs Temp Pulse Resp BP Pulse Ox 97.4 F L 60 22 149/90 98 12/06/22 11:12 12/06/22 11:12 12/06/22 11:12 12/06/22 11:12 12/06/22 11:12 CONSTITUTIONAL: Awake and alert, appears comfortable, cooperative, well- developed, well-nourished, no pain, no acute distress EYES: Pupils equal, round, reactive to light, normal ocular movement ENT: Moist mucous membranes without oral lesions present NECK: No masses, no bruits, trachea midline RESPIRATORY: Lungs sounds diminished bilaterally, left greater than right. Respirations even, nonlabored. Currently on 4 L nasal cannula with oxygen saturation 95%. Strong cough. CARDIOVASCULAR: S1, S2 present. Regular rate and rhythm, V-paced on telemetry. Palpable peripheral pulses bilaterally. No edema present. No calf pain or tenderness noted GASTROINTESTINAL: Abdomen soft, nontender, nondistended without masses or organomegaly noted. There is no rebound or guarding present. Active bowel sounds present 4 quadrants. GENITOURINARY: Deferred INTEGUMENTARY: Skin is warm and dry. Previous thoravent site with dry intact d ressing NEUROLOGIC: Cranial nerves II through XII intact, normal coordination, no obvious motor or sensory deficits, speech is normal MUSKULOSKELETAL: Able to move all extremities, strength equal bilaterally, normal posture PSYCHIATRIC: Alert and oriented to person place and time, appropriate affect, intact judgment and insight INVASIVE LINES/TUBES: Left sided chest tube present to continuous wall suction, no air leak present, 1700 mL bloody drainage present in the atrium this morning Results - Labs 12/08/22 05:21 12/08/22 05:21 Abnormal Lab Results - Last 24 Hours (Table) 12/07/22 12/07/22 12/08/22 Range/Units 16:17 18:58 01:43 RBC 2.59 L 2.58 L (4.30-5.90) m/uL Hgb 7.5 L 7.7 L (13.0-17.5) gm/dL Hct 23.9 L 24.0 L (39.0-53.0) % RDW 16.3 H 15.9 H (11.5-15.5) % Lymphocytes # (Manual) 0.67 L (1.0-4.8) k/uL Potassium (3.5-5.1) mmol/L Chloride (98-107) mmol/L Carbon Dioxide (22-30) mmol/L BUN (9-20) mg/dL Creatinine (0.66-1.25) mg/dL Glucose (74-99) mg/dL Calcium (8.4-10.2) mg/dL Total Bilirubin (0.2-1.3) mg/dL Total Protein (6.3-8.2) g/dL Albumin (3.5-5.0) g/dL Crossmatch See Detail 12/08/22 12/08/22 Range/Units 05:21 05:21 RBC 2.59 L (4.30-5.90) m/uL Hgb 7.6 L (13.0-17.5) gm/dL Hct 24.4 L (39.0-53.0) % RDW 16.3 H (11.5-15.5) % Lymphocytes # (Manual) (1.0-4.8) k/uL Potassium 5.7 H (3.5-5.1) mmol/L Chloride 109 H (98-107) mmol/L Carbon Dioxide 19 L (22-30) mmol/L BUN 82 H (9-20) mg/dL Creatinine 3.14 H (0.66-1.25) mg/dL Glucose 138 H (74-99) mg/dL Calcium 7.7 L (8.4-10.2) mg/dL Total Bilirubin 1.7 H (0.2-1.3) mg/dL Total Protein 4.9 L (6.3-8.2) g/dL Albumin 2.5 L (3.5-5.0) g/dL Crossmatch Diabetes panel 12/08/22 Range/Units 05:21 Sodium 140 (137-145) mmol/L Potassium 5.7 H (3.5-5.1) mmol/L Chloride 109 H (98-107) mmol/L Carbon Dioxide 19 L (22-30) mmol/L BUN 82 H (9-20) mg/dL Creatinine 3.14 H (0.66-1.25) mg/dL Glucose 138 H (74-99) mg/dL Calcium 7.7 L (8.4-10.2) mg/dL AST 45 (17-59) U/L ALT 21 (4-49) U/L Alkaline Phosphatase 51 (38-126) U/L Total Protein 4.9 L (6.3-8.2) g/dL Albumin 2.5 L (3.5-5.0) g/dL Calcium panel 12/08/22 Range/Units 05:21 Calcium 7.7 L (8.4-10.2) mg/dL Albumin 2.5 L (3.5-5.0) g/dL Pituitary panel 12/08/22 Range/Units 05:21 Sodium 140 (137-145) mmol/L Potassium 5.7 H (3.5-5.1) mmol/L Chloride 109 H (98-107) mmol/L Carbon Dioxide 19 L (22-30) mmol/L BUN 82 H (9-20) mg/dL Creatinine 3.14 H (0.66-1.25) mg/dL Glucose 138 H (74-99) mg/dL Calcium 7.7 L (8.4-10.2) mg/dL Adrenal panel 03/24/23 Range/Units 05:21 Sodium 140 (137-145) mmol/L Potassium 5.7 H (3.5-5.1) mmol/L Chloride 109 H (98-107) mmol/L Carbon Dioxide 19 L (22-30) mmol/L BUN 82 H (9-20) mg/dL Creatinine 3.14 H (0.66-1.25) mg/dL Glucose 138 H (74-99) mg/dL Calcium 7.7 L (8.4-10.2) mg/dL Total Bilirubin 1.7 H (0.2-1.3) mg/dL AST 45 (17-59) U/L ALT 21 (4-49) U/L Alkaline Phosphatase 51 (38-126) U/L Total Protein 4.9 L (6.3-8.2) g/dL Albumin 2.5 L (3.5-5.0) g/dL - Imaging Chest x-ray: report reviewed, image reviewed CT scan - chest: report reviewed, image reviewed Assessment and Plan Assessment: Large left-sided spontaneous pneumothorax, status post thoravent then subsequent chest tube placement Acute respiratory failure Acute blood loss anemia Moderate to severe COPD Previous tobacco dependence Coronary artery disease with previous PCI Previous aortic valve replacement Permanent pacemaker placement, biventricular Cardiomyopathy Peripheral arterial disease History of pulmonary embolism on Eliquis for anticoagulation, last dose 12/06/22 a.m. Hypertension Hyperlipidemia Chronic kidney disease, stage IV BPH Plan: The patient was seen and examined at the bedside. Chart/diagnostics reviewed. The case will be discussed in detail with Dr. López. Continue chest tube to -20 cm continuous wall suction. Monitor hemoglobin, transfuse per internal medicine recommendations. Wean O2 as tolerated. Encourage coughing and deep breathing, incentive spirometry use. Will monitor x-rays. Increase activity as tolerated. Medical management with her comorbidities per internal medicine, pulmonology. More recommendations to follow. I have personally seen and examined the patient, performed the documentation and the assessment and plan as written. Number of minutes spent on the visit: 30. ROS Ledesma
[2022-12-08] MEDS: FENOFIBRATE 160 MG TAB PO SCH (09:37)
--- NOTE | 2022-12-08 10:24 | P.PN ---
Subjective Progress Note Date: 12/08/22 I'm seeing this patient in new consultation today 12/07/2022 after being sent over from the pulmonary office with a spontaneous pneumothorax. 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 Patient was apparently eating a piece of cinnamon toast 7 days ago when he aspirated some of the cinnamon causing him to have significant coughing fit. After this, the patient developed some severe chest pain which he attributes to his pneumothorax. Denies any chest trauma. The pneumothorax was found when the patient presented to Dr. Lew's office yesterday. On arrival to [facility] is presenting chest x-ray showed a large left-sided pneumothorax estimated at 75%. Patient did have a left Thoravent placed in the ER. The most recent chest x-ray performed after the procedure shows a reduction in the left-sided pneumothorax to 15-20% with a persistent left hilar masslike density which could reflect expanding lung parenchyma. The Thoravent is currently placed to suction at -20 cm H2O, and there is about 30 mL of serosanguineous drainage in the chamber. Patient is currently resting comfortably in bed, on 2 L nasal cannula, in no acute distress. He is oxygenating at 98%. Patient's CBC on arrival showed a WBC count 8.3, hemoglobin 11.3, hematocrit 35, platelets 239,000. BMP on arrival shows sodium 141, potassium 4.5, chloride 101, serum CO2 31, BUN 76, creatinine chronically elevated at 2.2, glucose 123. Patient is currently receiving bronchodilators. He is receiving morphine when necessary for pain control. Normal saline is infusing at 100 ML's per hour. Vital signs are stable. The patient is seen today 12/08/2022 in follow-up in the intensive care unit. yesterday he was noticed to have a 4 g drop in hemoglobin. There is also some concern of the door vent was working appropriately. He did go down for a CAT scan of the chest that revealed a large left-sided hydropneumothorax with significant airspace consolidation in the left upper lobe. Some atelectatic changes of the left lower lobe. Left upper lobe masslike consolidation measurin g 8 cm. Left-sided chest tube was not in optimal position for fluid drainage. subsequently transferred to the intensive care unit. He was seen and evaluated by Dr. Hull who placed a left-sided #28-Occitan chest tube and with a significant amount of bloody return. Thora-Vent was discontinued. He has had a total of 1700 ML's of bloody fluid from the chest cavity thus far. Currently to Pleura-vac and wall suction. He is currently laying in bed. Pale. Maintaining O2 saturations in the 90s on 4 L/m per nasal cannula. He has normal saline at 100 ML's per hour. He is requiring norepinephrine currently at 3 mcg/m. He was given 1 unit of packed red blood cells. His current hemoglobin is 7.6. White count 10.3. Platelets 248. Sodium 140. Potassium 5.7. Bicarbonate 19. BUN 82. Creatinine 3.14. Glucose 138. Objective - Vital Signs Vital signs: Vital Signs Temp 98.2 F 12/08/22 08:00 Pulse 108 H 12/08/22 10:00 Resp 13 12/08/22 10:00 BP 81/29 12/08/22 10:00 Pulse Ox 99 12/08/22 10:00 FiO2 Intake & Output 12/07/22 12/08/22 12/08/22 18:59 06:59 18:59 Intake Total 354 2154 400 Output Total 1150 2585 175 Balance -796 -431 225 Weight 60 kg Intake: Intake, IV Titration 1600 400 Amount Sodium Chloride 0.9% 1, 600 400 000 ml @ 100 mls/hr IV . Q10H [facility] Rx#:[id number] Sodium Chloride 0.9% 1, 1000 000 ml @ 999 mls/hr IV . Q1H1M [facility] Rx#:[id number] Oral 354 Blood Product 554 Rc Pheresis As-3 Unit 277 [id number] Output: Chest Tube Drainage 500 2585 175 Chest Tube Left Anterior 2585 175 Chest Thora-Vent Left Anterior 500 Chest Urine 650 0 Other: Voiding Method Urinal Urinal Urinal # Voids 2 - Exam GENERAL EXAM: Alert, pale, weak 87-year-old male, on 4 L nasal cannula, fairly comfortable in no apparent distress. HEAD: Normocephalic. EYES: Normal reaction of pupils, equal size. NOSE: Clear with pink turbinates. THROAT: No erythema or exudates. NECK: No masses, no JVD. CHEST: No chest wall deformity. Left-sided chest tube in place, to Pleur-evac and wall suction LUNGS: Equal air entry with bilateral scattered rhonchi, diminished on the left lung base. CVS: S1 and S2 normal with no audible murmur, regular rhythm. ABDOMEN: No hepatosplenomegaly, normal bowel sounds, no guarding or rigidity. SPINE: No scoliosis or deformity SKIN: No rashes CENTRAL NERVOUS SYSTEM: No focal deficits, tone is normal in all 4 extremities. EXTREMITIES: There is no peripheral edema. No clubbing, no cyanosis. Peripheral pulses are intact. - Labs CBC & Chem 7: 12/08/22 05:21 12/08/22 05:21 Labs: Abnormal Lab Results - Last 24 Hours (Table) 12/07/22 12/07/22 12/08/22 Range/Units 16:17 18:58 01:43 RBC 2.59 L 2.58 L (4.30-5.90) m/uL Hgb 7.5 L 7.7 L (13.0-17.5) gm/dL Hct 23.9 L 24.0 L (39.0-53.0) % RDW 16.3 H 15.9 H (11.5-15.5) % Lymphocytes # (Manual) 0.67 L (1.0-4.8) k/uL Potassium (3.5-5.1) mmol/L Chloride (98-107) mmol/L Carbon Dioxide (22-30) mmol/L BUN (9-20) mg/dL Creatinine (0.66-1.25) mg/dL Glucose (74-99) mg/dL Calcium (8.4-10.2) mg/dL Total Bilirubin (0.2-1.3) mg/dL Total Protein (6.3-8.2) g/dL Albumin (3.5-5.0) g/dL Crossmatch See Detail 12/08/22 12/08/22 Range/Units 05:21 05:21 RBC 2.59 L (4.30-5.90) m/uL Hgb 7.6 L (13.0-17.5) gm/dL Hct 24.4 L (39.0-53.0) % RDW 16.3 H (11.5-15.5) % Lymphocytes # (Manual) (1.0-4.8) k/uL Potassium 5.7 H (3.5-5.1) mmol/L Chloride 109 H (98-107) mmol/L Carbon Dioxide 19 L (22-30) mmol/L BUN 82 H (9-20) mg/dL Creatinine 3.14 H (0.66-1.25) mg/dL Glucose 138 H (74-99) mg/dL Calcium 7.7 L (8.4-10.2) mg/dL Total Bilirubin 1.7 H (0.2-1.3) mg/dL Total Protein 4.9 L (6.3-8.2) g/dL Albumin 2.5 L (3.5-5.0) g/dL Crossmatch Assessment and Plan Assessment: Spontaneous left pneumothorax. ThoraVent was placed in the ER resulting in partial reexpansion of a large left 75% pneumothorax. He did go down for a CAT scan of the chest that revealed a large left-sided hydropneumothorax with significant airspace consolidation in the left upper lobe. Some atelectatic changes of the left lower lobe. Left upper lobe masslike consolidation measuring 8 cm. Left-sided chest tube was not in optimal position for fluid drainage. On 12/07/2022 he transferred to the intensive care unit. He was seen by Dr. Hull who placed a left-sided #28-Occitan chest tube and with a significant amount of bloody return. Thora-Vent was discontinued. He has had a total of 1700 ML's of bloody fluid from the chest cavity thus far. Acute hypoxic respiratory failure secondary to above. Currently on 4 L nasal cannula oxygenating at 97%. Moderate to severe background COPD. Managed outpatient with [facility]. Hypertension Hyperlipidemia Nonischemic cardiomyopathy Biventricular pacemaker Coronary artery disease Remote history of pulmonary embolism Peripheral vascular disease Chronic kidney disease stage IV BPH Glaucoma Ex-smoker, approximately 40 pack years Plan: The patient was seen and evaluated CT scan, labs and medications reviewed Receiving 1 unit of packed red blood cells Approximately 1700 ML's of bloody fluid from the left chest thus far Remains off Eliquis Normal saline at 100 ML's an hour Titrate the norepinephrine as tolerated Incentive spirometer, bronchodilators DO NOT RESUSCITATE/DO NOT INTUBATE CODE STATUS We will continue to follow and make further recommendations based on his clin ical status I have personally seen and examined the patient, performed the documentation and the assessment and plan as written. Number of minutes spent on the visit: 10.
--- NOTE | 2022-12-08 10:35 | P.PN ---
Subjective Progress Note Date: 12/08/22 Hospital Course: 87-year-old male with a past medical history of CAD status post stenting and pacemaker placement, aortic valve replacement 2009, PVD on anticoagulant with Eliquis, CKD stage IV, and hyperlipidemia. He presented to the emergency department secondary to reports of shortness of breath. Patient reported one week ago he was eating toast with cinnamon and states that he inhaled some of the cinnamon and immediately began coughing and had since been experiencing a difficult time breathing so he called and made an appointment with his supervisor [employer]. Patient went in to be evaluated by his supervisor [employer] former, Dr. Will, this morning and was found to have a large left-sided pneumothorax and sent straight to the emergency department. Upon arrival to the emergency department patient underwent full evaluation. A chest x-ray was completed revealing large left-sided pneumothorax consisting of approximately 75%. Chest tube then placed in the emergency department. Labs were completed and reviewed. CBC revealing normocytic anemia with stable hemoglobin of 11.3 and BMP showing slight elevation in renal function with BUN 76, creatinine 2.22, and GFR of 25 with baseline creatinine of 1.8. Repeat chest x-ray completed status post insertion of left sided chest tube, radiology report again reviewed showing left-sided chest tube is in place and pneumothorax persisting but showing improvement estimated at 15-20% from previous 75%, chest x-ray also concerning for persistent left hilar masslike density. Patient, laboratory findings, and imaging were discussed in detail with the ED physician. Patient was admitted under our services to stepdown unit with telemetry with consultation to pulmonology. Repeat chest x-ray was completed this morning in radiology report reviewed revealing left-sided pleural catheter redemonstrated but now reporting the development of small left apical pneumothorax with additional worsening of aeration throughout the left hemithorax with extensive opacity having developed. He had significant bloody drainage from chest tube, his hemoglobin reflecting significant blood loss anemia. CT chest without contrast showed large left- sided hydropneumothorax with left upper lobe masslike consolidation measuring 8 cm. Left-sided chest tube not in optimal position for drainage of pleural fluid. He was taken to medical ICU, and had another chest tube placed, with 1 L of bloody drainage out initially. He is currently on nasal cannula, remains in the medical ICU. Subjective: Patient seen and examined at bedside. No acute events overnight. He denies any significant chest pain, shortness of breath. However, he does have nausea. He denies any abdominal pain, urinary or bowel complaints. He continues to make urine. He is on vasopressors. He had about 1700 mL of bloody drainage from his chest tube since it was placed last night. Pertinent positives and negatives as discussed above, a complete review of systems was performed and all other systems are negative. Vitals Signs Reviewed. General: nontoxic, no distress, appears at stated age Derm: warm, dry Head: atraumatic, normocephalic, symmetric Eyes: EOMI, no lid lag, anicteric sclera Mouth: no lip lesion, mucus membranes moist Cardiovascular: S1S2 reg, systolic murmur Lungs: Reduced breath sounds on the left side, no accessory muscle use, supplemental oxygen, left-sided chest tube Abdominal: soft, nontender to palpation, no guarding, no appreciable organomegaly Ext: no gross muscle atrophy, no edema, no contractures Neuro: CN II-XI grossly intact, no focal neuro deficits Psych: Alert, oriented, appropriate affect Data Reviewed Today: Pertinent Labs: WBC 10.3, hemoglobin 7.6, platelet 248, potassium 5.7, bicarb 19, BUN 82, creatinine 3.14. Imaging: Chest x-ray independently interpreted, continues to have significant opacity on the left side, but improved pneumothorax compared to yesterday Assessment and Plan: Active: Large left-sided hemo-pneumothorax status post another chest tube, this was likely in the setting of aspiration versus spontaneous pneumothorax Acute blood loss anemia Hypovolemic shock History of anemia of chronic disease Acute hypoxic respiratory failure Acute kidney injury on stage IV chronic kidney disease Hyperkalemia Anion gap metabolic acidosis -He continues to have significant bloody drainage output from his chest tube -CT surgery note reviewed: Continue chest tube to -20 cm continuous wall suction -Pulmonology following -Patient is currently on IV opiates -Hemoglobin is stable at 7.6, continue to monitor with daily CBC -Continue norepinephrine, wean if possible -Currently on 4 L nasal cannula, continue to wean -Acute kidney injury likely setting of blood loss anemia and hypovolemia -Continue normal saline at 100 mL an hour -Kayexalate 15 g ordered -Sodium bicarbonate 650 mg twice a day ordered Chronic: CAD status post stent Pacemaker Aortic valve replacement Peripheral vascular disease, holding aspirin and Eliquis BPH Macular degeneration Dyslipidemia -Also holding Lasix DVT ppx: SCDs Code status: No code Anticipated discharge place: Pending clinical course Anticipated discharge time: Pending clinical course Objective - Vital Signs Vital signs: Vital Signs Temp 98.2 F 12/08/22 08:00 Pulse 108 H 12/08/22 10:00 Resp 13 12/08/22 10:00 BP 81/29 12/08/22 10:00 Pulse Ox 99 12/08/22 10:00 FiO2 Intake & Output 12/07/22 12/08/22 12/08/22 18:59 06:59 18:59 Intake Total 354 2154 400 Output Total 1150 2585 175 Balance -796 -431 225 Weight 60 kg Intake: Intake, IV Titration 1600 400 Amount Sodium Chloride 0.9% 1, 600 400 000 ml @ 100 mls/hr IV . Q10H [facility] Rx#:[id number] Sodium Chloride 0.9% 1, 1000 000 ml @ 999 mls/hr IV . Q1H1M [facility] Rx#:[id number] Oral 354 Blood Product 554 Rc Pheresis As-3 Unit 277 [id number] Output: Chest Tube Drainage 500 2585 175 Chest Tube Left Anterior 2585 175 Chest Thora-Vent Left Anterior 500 Chest Urine 650 0 Other: Voiding Method Urinal Urinal Urinal # Voids 2 - Labs CBC & Chem 7: 12/08/22 05:21 12/08/22 05:21 Labs: Abnormal Lab Results - Last 24 Hours (Table) 12/07/22 12/07/22 12/08/22 Range/Units 16:17 18:58 01:43 RBC 2.59 L 2.58 L (4.30-5.90) m/uL Hgb 7.5 L 7.7 L (13.0-17.5) gm/dL Hct 23.9 L 24.0 L (39.0-53.0) % RDW 16.3 H 15.9 H (11.5-15.5) % Lymphocytes # (Manual) 0.67 L (1.0-4.8) k/uL Potassium (3.5-5.1) mmol/L Chloride (98-107) mmol/L Carbon Dioxide (22-30) mmol/L BUN (9-20) mg/dL Creatinine (0.66-1.25) mg/dL Glucose (74-99) mg/dL Calcium (8.4-10.2) mg/dL Total Bilirubin (0.2-1.3) mg/dL Total Protein (6.3-8.2) g/dL Albumin (3.5-5.0) g/dL Crossmatch See Detail 12/08/22 12/08/22 Range/Units 05:21 05:21 RBC 2.59 L (4.30-5.90) m/uL Hgb 7.6 L (13.0-17.5) gm/dL Hct 24.4 L (39.0-53.0) % RDW 16.3 H (11.5-15.5) % Lymphocytes # (Manual) (1.0-4.8) k/uL Potassium 5.7 H (3.5-5.1) mmol/L Chloride 109 H (98-107) mmol/L Carbon Dioxide 19 L (22-30) mmol/L BUN 82 H (9-20) mg/dL Creatinine 3.14 H (0.66-1.25) mg/dL Glucose 138 H (74-99) mg/dL Calcium 7.7 L (8.4-10.2) mg/dL Total Bilirubin 1.7 H (0.2-1.3) mg/dL Total Protein 4.9 L (6.3-8.2) g/dL Albumin 2.5 L (3.5-5.0) g/dL Crossmatch
[2022-12-08] MEDS: SODIUM BICARBONATE TAB 650 MG TAB PO SCH ×2 (16:26→19:58)
[2022-12-08] MEDS ORDERED: SODIUM CHLORIDE 0.9% 1,000 ML IV ONE (19:02)
[2022-12-08] MEDS: ATORVASTATIN 20 MG TAB PO SCH (19:58)
[2022-12-08] MEDS: LATANOPROST 0.005% OPHTH DROPS 2.5 ML BTL BOTH EYES SCH (19:59)
[2022-12-08 21:35] LABS: Glucose,Whole Blood 143 mg/dL (70-110)
[2022-12-08] MEDS ORDERED: FUROSEMIDE 10 MG/ML 4 ML VIAL IV STA (21:40)
--- NOTE | 2022-12-08 22:16 | XR ---
EXAMINATION TYPE: XR chest 1V portable DATE OF EXAM: 12/08/2022 COMPARISON: Today HISTORY: Hemopneumothorax TECHNIQUE: Single view FINDINGS: There is mild blunting left costophrenic angle. There is airspace infiltrate throughout the left lung. There is right axillary pacemaker. There is left-sided chest tube with the tip in the lef t upper lobe paraspinal region. Trachea is midline. There is some interstitial mild infiltrate in the right lung. There are sternal wires. No definite pneumothorax. Left diaphragm is slightly elevated. IMPRESSION: Extensive left-sided pulmonary infiltrates and atelectasis. Infiltrates increased compared to exam th is morning. No definite pneumothorax. There is some interstitial mild infiltrate right lower lobe wit hout much change. IMPRESSION:
[2022-12-09] MEDS: MORPHINE SULFATE 4 MG/ML SYRINGE IV PRN ×3 (00:55→19:42)
[2022-12-09 06:11] LABS: INR 1.2 (<1.2); Prothrombin Time 12.6 sec (9.0-12.0)
[2022-12-09 06:13] LABS: Albumin 2.4 g/dL (3.5-5.0); Calcium 7.1 mg/dL (8.4-10.2); Potassium 5.9 mmol/L (3.5-5.1); Total Bilirubin 0.8 mg/dL (0.2-1.3); Total Protein 4.8 g/dL (6.3-8.2)
[2022-12-09 06:19] LABS: Anisocytosis Slight; Basophils % (A) 0 %; Eosinophils # (A) 0.1 k/uL (0-0.7); Eosinophils % (A) 2 %; HCT 22.2 % (39.0-53.0); Hypochromasia Moderate; Lymphocytes # (A) 0.6 k/uL (1.0-4.8); Lymphocytes % (A) 7 %; MCH 29.6 pg (25.0-35.0); MCHC 31.7 g/dL (31.0-37.0); MCV 93.4 fL (80.0-100.0); Mean Platelet Volume 8.7; Monocytes # (A) 0.7 k/uL (0-1.0); Monocytes % (A) 8 %; Neutrophils # (A) 6.8 k/uL (1.3-7.7); Neutrophils % (A) 80 %; Platelet Count 242 k/uL (150-450); Poikilocytosis Slight; RBC 2.37 m/uL (4.30-5.90); RDW 16.5 % (11.5-15.5); WBC 8.5 k/uL (3.8-10.6)
[2022-12-09] MEDS ORDERED: SODIUM BICARB 8.4% 50 ML SYR (1 MEQ/ML) IV STA (07:25)
[2022-12-09] MEDS: IPRATROPIUM 0.5 MG/2.5 ML NEBU INHALATION SCH (07:36)
[2022-12-09] MEDS: ALBUTEROL NEBULIZED 2.5 MG/3 ML INHALATION SCH (07:36)
--- NOTE | 2022-12-09 07:42 | XR ---
EXAMINATION TYPE: XR chest 1V portable DATE OF EXAM: 12/09/2022 COMPARISON: 12/08/2022 2 films INDICATION: Pneumothorax, previous abnormal chest TECHNIQUE: Single frontal view of the chest is obtained in the semiupright position. FINDINGS: The heart size is normal. The pulmonary vasculature is normal. There is opacification through the mid and lower left lung field. Findings are similar to comparison. Some developing infiltrate at the right base is present. Pacemaker overlies the right chest. Sternot mira wires are in the midline. No pneumothorax is evident. IMPRESSION: 1. Increasing lung opacification left mid and lower lung field and developing infiltrate at the right base. Continued follow-up is recommended.
[2022-12-09] MEDS: carvediloL 6.25 MG TAB PO SCH (07:54)
[2022-12-09] MEDS ORDERED: CALCIUM GLUCONATE IN NACL 2 GM in SALINE 1 100ML.BAG IVPB ONE (08:00)
--- NOTE | 2022-12-09 08:06 | P.PN ---
Subjective Progress Note Date: 12/09/22 Principal diagnosis: Large left-sided spontaneous pneumothorax, acute respiratory failure, acute blood loss anemia. 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 Remains ventricular paced on telemetry, hypotensive on IV Levophed. Does complain of some pain at his chest tube in sertion site, denies current shortness of breath. Patient is very tired and does not have a lot of energy. Left pleural chest tube remains to continuous wall suction, drainage has slowed quite considerably, 150 mL overnight and 500 mL since yesterday morning. Drainage is less bloody, thinning out and lightening up. Chest x-ray and lab work reviewed, hemoglobin down to 7.0, creatinine 4.38, potassium 5.9, chest x-ray demonstrates no pneumothorax, increased lung opacities in the mid and lower left lung as well as infiltrates in the right base. Patient reports no urine output for the last 2 days. Patient was seen by Dr. López yesterday, no surgical intervention recommended, continue conservative treatment. Objective - Vital Signs Vital signs: Vital Signs Temp 98.2 F 12/09/22 04:00 Pulse 60 12/09/22 07:37 Resp 16 12/09/22 00:45 BP 122/36 12/09/22 07:00 Pulse Ox 97 12/09/22 07:36 FiO2 Intake & Output 12/08/22 12/09/22 12/09/22 18:59 06:59 18:59 Intake Total 1224.03 1282.356 75 Output Total 255 275 Balance 969.03 1007.356 75 Weight 81.2 kg Intake: IV 1100 1075 75 Sodium Chloride 0.9% 1, 1100 1075 75 000 ml @ 75 mls/hr IV . [id number] [facility] Rx#:[id number] Intake, IV Titration 124.03 207.356 Amount Norepinephrine 4 mg In 24.03 207.356 Sodium Chloride 0.9% 250 ml @ 0.03 MCG/KG/MIN 6. 801 mls/hr IV .Q24H [facility] Rx#:[id number] Sodium Chloride 0.9% 1, 100 000 ml @ 75 mls/hr IV . [id number] [facility] Rx#:[id number] Output: Chest Tube Drainage 255 275 Chest Tube Left Anterior 255 275 Chest Urine 0 0 Other: Voiding Method Urinal Urinal - Exam CONSTITUTIONAL: Appears comfortable, cooperative, no acute distress RESPIRATORY: Lungs sounds diminished bilaterally, left greater than right. Respirations even, nonlabored. Currently on 4 L nasal cannula with oxygen saturation 97%. Unable to utilize incentive spirometry appropriately at this time. Weak cough. CARDIOVASCULAR: S1, S2 present. Regular rate and rhythm, V paced on telemetry. Palpable peripheral pulses bilaterally. No edema present. No calf pain or tenderness noted. SCDs present. GASTROINTESTINAL: Abdomen soft, nontender, nondistended. Active bowel sounds present 4 quadrants. Tolerating minimal diet GENITOURINARY: No documented urinary output for 48 hours INTEGUMENTARY: Skin is warm and dry with evidence of good perfusion. Thoracic incision well approximated and covered with dry intact dressing. NEUROLOGIC: Cranial nerves II through XII intact MUSKULOSKELETAL: Able to move all extremities, strength equal bilaterally, gait normal PSYCHIATRIC: Alert and oriented to person place and time, appropriate affect, intact judgment and insight INVASIVE LINES AND TUBES: Left pleural chest tube present and connected to wall suction, 150 mL serosanguineous drainage overnight, 500 mL in the last 24 hours - Allied health notes Allied health notes reviewed: nursing - Labs CBC & Chem 7: 12/09/22 05:19 12/09/22 05:19 Labs: Abnormal Lab Results - Last 24 Hours (Table) 12/08/22 12/09/22 12/09/22 Range/Units 21:34 05:19 05:19 RBC 2.37 L (4.30-5.90) m/uL Hgb 7.0 L (13.0-17.5) gm/dL Hct 22.2 L (39.0-53.0) % RDW 16.5 H (11.5-15.5) % Lymphocytes # 0.6 L (1.0-4.8) k/uL PT 12.6 H (9.0-12.0) sec INR 1.2 H (<1.2) Potassium (3.5-5.1) mmol/L Chloride (98-107) mmol/L Carbon Dioxide (22-30) mmol/L BUN (9-20) mg/dL Creatinine (0.66-1.25) mg/dL Glucose (74-99) mg/dL POC Glucose (mg/dL) 143 H (70-110) mg/dL Calcium (8.4-10.2) mg/dL Total Protein (6.3-8.2) g/dL Albumin (3.5-5.0) g/dL 12/09/22 Range/Units 05:19 RBC (4.30-5.90) m/uL Hgb (13.0-17.5) gm/dL Hct (39.0-53.0) % RDW (11.5-15.5) % Lymphocytes # (1.0-4.8) k/uL PT (9.0-12.0) sec INR (<1.2) Potassium 5.9 H (3.5-5.1) mmol/L Chloride 110 H (98-107) mmol/L Carbon Dioxide 20 L (22-30) mmol/L BUN 89 H (9-20) mg/dL Creatinine 4.38 H (0.66-1.25) mg/dL Glucose 136 H (74-99) mg/dL POC Glucose (mg/dL) (70-110) mg/dL Calcium 7.1 L (8.4-10.2) mg/dL Total Protein 4.8 L (6.3-8.2) g/dL Albumin 2.4 L (3.5-5.0) g/dL - Imaging and Cardiology Chest x-ray: report reviewed, image reviewed Assessment and Plan Assessment: Large left-sided spontaneous pneumothorax, status post thoravent then subsequent chest tube placement Acute respiratory failure Acute blood loss anemia Acute on chronic kidney disease, stage IV Hyperkalemia Anuria Moderate to severe COPD Previous tobacco dependence Coronary artery disease with previous PCI Previous aortic valve replacement Permanent pacemaker placement, biventricular Cardiomyopathy Peripheral arterial disease History of pulmonary embolism on Eliquis for anticoagulation, last dose 12/06/22 a.m. History of hypertension, currently hypotensive on IV Levophed Hyperlipidemia BPH Plan: Continue to monitor chest tube output and consistency No surgical intervention warranted. Continue conservative management Wean O2 as tolerated, encourage incentive spirometry use Monitor labs and x-rays, transfuse per internal medicine/controller operations and hr manager recommendations Increase activity as tolerated Patient has poor prognosis. Currently DO NOT RESUSCITATE status. Recommend palliative care consult Medical management of other comorbidities per internal medicine, pulmonology Will continue to follow and make recommendations as appropriate
[2022-12-09] MEDS: FENOFIBRATE 160 MG TAB PO SCH (08:10)
[2022-12-09] MEDS: MULTIVITAMINS, THERA 1 EACH TAB PO SCH (08:10)
[2022-12-09] MEDS: TAMSULOSIN 0.4 MG CAP.ER.24H PO SCH (08:10)
[2022-12-09] MEDS: SODIUM BICARBONATE TAB 650 MG TAB PO SCH ×2 (08:10→20:10)
[2022-12-09] MEDS: VIT A,C & E-LUTEIN-MINERALS 1 EACH TAB PO SCH ×2 (08:10→20:10)
[2022-12-09] MEDS ORDERED: LACTATED RINGERS 1,000 ML IV ONE (09:00)
--- NOTE | 2022-12-09 10:46 | P.PN ---
Subjective Progress Note Date: 12/09/22 Hospital Course: 87-year-old male with a past medical history of CAD status post stenting and pa cemaker placement, aortic valve replacement 2009, PVD on anticoagulant with Eliquis, CKD stage IV, and hyperlipidemia. He presented to the emergency department secondary to reports of shortness of breath. Patient reported one week ago he was eating toast with cinnamon and states that he inhaled some of the cinnamon and immediately began coughing and had since been experiencing a difficult time breathing so he called and made an appointment with his aviation safety equipment technician. Patient went in to be evaluated by his aviation safety equipment technician, Dr. Will, this morning and was found to have a large left-sided pneumothorax and sent straight to the emergency department. Upon arrival to the emergency department patient underwent full evaluation. A chest x-ray was completed revealing large left-sided pneumothorax consisting of approximately 75%. Chest tube then placed in the emergency department. Labs were completed and reviewed. CBC revealing normocytic anemia with stable hemoglobin of 11.3 and BMP showing slight elevation in renal function with BUN 76, creatinine 2.22, and GFR of 25 with baseline creatinine of 1.8. Repeat chest x-ray completed status post insertion of left sided chest tube, radiology report again reviewed showing left-sided chest tube is in place and pneumothorax persisting but showing improvement estimated at 15-20% from previous 75%, chest x-ray also concerning for persistent left hilar masslike density. Patient, laboratory findings, and imaging were discussed in detail with the ED physician. Patient was admitted under our services to stepdown unit with telemetry with consultation to pulmonology. Repeat chest x-ray was completed this morning in radiology report reviewed revealing left-sided pleural catheter redemonstrated but now reporting the development of small left apical pneumothorax with additional worsening of aeration throughout the left hemithorax with extensive opacity having developed. He had significant bloody drainage from chest tube, his hemoglobin reflecting significant blood loss anemia. CT chest without contrast showed large left- sided hydropneumothorax with left upper lobe masslike consolidation measuring 8 cm. Left-sided chest tube not in optimal position for drainage of pleural fluid. He was taken to medical ICU, and had another chest tube placed, with 1 L of bloody drainage out initially. His hemoglobin continues to worsen. He is cu rrently on nasal cannula, remains in the medical ICU. He is also an oliguric acute kidney injury. Subjective: Patient seen and examined at bedside. No acute events overnight. He denies any significant chest pain, shortness of breath. He denies any abdominal pain, urinary or bowel complaints. He continues to make urine. He is on vasopressors. He continues to have bloody drainage from his chest tube. Pertinent positives and negatives as discussed above, a complete review of systems was performed and all other systems are negative. Vitals Signs Reviewed. General: Lethargic, no distress, appears at stated age Derm: warm, dry Head: atraumatic, normocephalic, symmetric Eyes: EOMI, no lid lag, anicteric sclera Mouth: no lip lesion, mucus membranes moist Cardiovascular: S1S2 reg, systolic murmur Lungs: Reduced breath sounds on the left side, no accessory muscle use, supplemental oxygen, left-sided chest tube with bloody drainage Abdominal: soft, nontender to palpation, no guarding, no appreciable organomegaly Ext: no gross muscle atrophy, no edema, no contractures Neuro: CN II-XI grossly intact, no focal neuro deficits Psych: Lethargic, oriented, appropriate affect Data Reviewed Today: Pertinent Labs: Hemoglobin 7.0, potassium 5.9, bicarb 20, BUN 89, creatinine 4.38 Imaging: Chest x-ray independently interpreted, continues to have significant opacity on the left side which is worsening, also has increased opacity on the right base. Assessment and Plan: Patient is currently critically ill. Has a poor prognosis. He does not want dialysis. Active: Large left-sided hemo-pneumothorax status post another chest tube, this was likely in the setting of aspiration versus spontaneous pneumothorax Acute blood loss anemia Hemorrhagic shock History of anemia of chronic disease Acute hypoxic respiratory failure Anuric, Acute kidney injury on stage IV chronic kidney disease Hyperkalemia Anion gap metabolic acidosis -He continues to have significant bloody drainage output from his chest tube -CT surgery note reviewed: Continue conservative management -Pulmonology following -Patient is currently on IV opiates for pain -Hemoglobin continues to downtrend, currently at 7, continue to monitor with daily CBC -He will be getting 1 unit of PRBCs -Continue norepinephrine, wean if possible -Currently on 2 L nasal cannula, continue to wean -Acute kidney injury likely setting of blood loss anemia and hypovolemia -Getting a liter of lactated Ringer, and blood 1 unit -2 g calcium gluconate ordered, 50 mEq sodium bicarb IV ordered -Sodium bicarbonate 650 mg twice a day ordered -Nephrology consulted Chronic: CAD status post stent Pacemaker Aortic valve replacement Peripheral vascular disease, holding aspirin and Eliquis BPH Macular degeneration Dyslipidemia DVT ppx: SCDs Code status: DNR/DNI Anticipated discharge place: Pending clinical course Anticipated discharge time: Pending clinical course Objective - Vital Signs Vital signs: Vital Signs Temp 97.8 F 12/09/22 08:00 Pulse 60 12/09/22 10:00 Resp 12 12/09/22 09:45 BP 102/40 12/09/22 10:00 Pulse Ox 96 12/09/22 10:00 FiO2 Intake & Output 12/08/22 12/09/22 12/09/22 18:59 06:59 18:59 Intake Total 1224.03 2078.358 9923.386 Output Total 255 275 30 Balance 969.03 5132.792 1779.386 Weight 81.2 kg Intake: IV 1100 1075 1185 Calcium Gluconate in NaCl 100 2 gm In Saline 1 100ml. bag @ 100 mls/hr IVPB ONCE ONE Rx#:[id number] Lactated Ringers 1,000 ml 1000 @ 999 mls/hr IV .Q1H1M [facility] Rx#:[id number] Sodium Chloride 0.9% 1, 1100 1075 85 000 ml @ 75 mls/hr IV . [id number] [facility] Rx#:[id number] Intake, IV Titration 124.03 207.356 156.386 Amount Norepinephrine 4 mg In 24.03 207.356 156.386 Sodium Chloride 0.9% 250 ml @ 0.03 MCG/KG/MIN 6. 801 mls/hr IV .Q24H [facility] Rx#:[id number] Sodium Chloride 0.9% 1, 100 000 ml @ 75 mls/hr IV . [id number] [facility] Rx#:[id number] Output: Chest Tube Drainage 255 275 30 Chest Tube Left Anterior 255 275 30 Chest Urine 0 0 0 Other: Voiding Method Urinal Urinal Urinal # Voids 0 - Labs CBC & Chem 7: 12/09/22 05:19 12/09/22 05:19 Labs: Abnormal Lab Results - Last 24 Hours (Table) 12/07/22 12/08/22 12/09/22 Range/Units 18:58 21:34 05:19 RBC 2.37 L (4.30-5.90) m/uL Hgb 7.0 L (13.0-17.5) gm/dL Hct 22.2 L (39.0-53.0) % RDW 16.5 H (11.5-15.5) % Lymphocytes # 0.6 L (1.0-4.8) k/uL PT (9.0-12.0) sec INR (<1.2) Potassium (3.5-5.1) mmol/L Chloride (98-107) mmol/L Carbon Dioxide (22-30) mmol/L BUN (9-20) mg/dL Creatinine (0.66-1.25) mg/dL Glucose (74-99) mg/dL POC Glucose (mg/dL) 143 H (70-110) mg/dL Calcium (8.4-10.2) mg/dL Total Protein (6.3-8.2) g/dL Albumin (3.5-5.0) g/dL Crossmatch See Detail 12/09/22 12/09/22 Range/Units 05:19 05:19 RBC (4.30-5.90) m/uL Hgb (13.0-17.5) gm/dL Hct (39.0-53.0) % RDW (11.5-15.5) % Lymphocytes # (1.0-4.8) k/uL PT 12.6 H (9.0-12.0) sec INR 1.2 H (<1.2) Potassium 5.9 H (3.5-5.1) mmol/L Chloride 110 H (98-107) mmol/L Carbon Dioxide 20 L (22-30) mmol/L BUN 89 H (9-20) mg/dL Creatinine 4.38 H (0.66-1.25) mg/dL Glucose 136 H (74-99) mg/dL POC Glucose (mg/dL) (70-110) mg/dL Calcium 7.1 L (8.4-10.2) mg/dL Total Protein 4.8 L (6.3-8.2) g/dL Albumin 2.4 L (3.5-5.0) g/dL Crossmatch
--- NOTE | 2022-12-09 11:01 | P.PN ---
Subjective Progress Note Date: 12/09/22 I'm seeing this patient in new consultation today 12/07/2022 after being sent over from the pulmonary office with a spontaneous pneumothorax. 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 Patient was apparently eating a piece of cinnamon toast 7 days ago when he aspirated some of the cinnamon causing him to have significant coughing fit. After this, the patient developed some severe chest pain which he attributes to his pneumothorax. Denies any chest trauma. The pneumothorax was found when the patient presented to Dr. Lew's office yesterday. On arrival to [facility] is presenting chest x-ray showed a large left-sided pneumothorax estimated at 75%. Patient did have a left Thoravent placed in the ER. The most recent chest x-ray performed after the procedure shows a reduction in the left-sided pneumothorax to 15-20% with a persistent left hilar masslike density which could reflect expanding lung parenchyma. The Thoravent is currently placed to suction at -20 cm H2O, and there is about 30 mL of serosanguineous drainage in the chamber. Patient is currently resting comfortably in bed, on 2 L nasal cannula, in no acute distress. He is oxygenating at 98%. Patient's CBC on arrival showed a WBC count 8.3, hemoglobin 11.3, hematocrit 35, platelets 239,000. BMP on arrival shows sodium 141, potassium 4.5, chloride 101, serum CO2 31, BUN 76, creatinine chronically elevated at 2.2, glucose 123. Patient is currently receiving bronchodilators. He is receiving morphine when necessary for pain control. Normal saline is infusing at 100 ML's per hour. Vital signs are stable. The patient is seen today 12/08/2022 in follow-up in the intensive care unit. yesterday he was noticed to have a 4 g drop in hemoglobin. There is also some concern of the door vent was working appropriately. He did go down for a CAT scan of the chest that revealed a large left-sided hydropneumothorax with significant airspace consolidation in the left upper lobe. Some atelectatic changes of the left lower lobe. Left upper lobe masslike consolidation measurin g 8 cm. Left-sided chest tube was not in optimal position for fluid drainage. subsequently transferred to the intensive care unit. He was seen and evaluated by Dr. Hull who placed a left-sided #28-Colombian chest tube and with a significant amount of bloody return. Thora-Vent was discontinued. He has had a total of 1700 ML's of bloody fluid from the chest cavity thus far. Currently to Pleura-vac and wall suction. He is currently laying in bed. Pale. Maintaining O2 saturations in the 90s on 4 L/m per nasal cannula. He has normal saline at 100 ML's per hour. He is requiring norepinephrine currently at 3 mcg/m. He was given 1 unit of packed red blood cells. His current hemoglobin is 7.6. White count 10.3. Platelets 248. Sodium 140. Potassium 5.7. Bicarbonate 19. BUN 82. Creatinine 3.14. Glucose 138. The patient is seen today 12/09/2022 in follow-up in the intensive care unit. Currently resting comfortably in bed. Last evening he developed increasing shortness of breath and congestion and was given Lasix 40 mg IVP 1. Today's chest x-ray continues to show increasing lung opacification of the left mid and lower lung magana with developing infiltrate at the right base. He is more awake and alert today. He did tolerate half of his breakfast. He is maintaining O2 saturations in the 90s on 2 L/m per nasal cannula. He has normal saline at KVO. Norepinephrine at 7 mcg/m. His chest tube continues to drain and had another 430 ML's out in the past 24 hours, still remains bloody. He did receive 1 unit of packed red blood cells yesterday. His current hemoglobin is 7.0. Platelets 242. White count 8.5. INR 1.2. Sodium 137. Potassium 5.9. Bicarb 20. BUN 89. Creatinine 4.38. Glucose 136. Eliquis remains on hold. Objective - Vital Signs Vital signs: Vital Signs Temp 97.8 F 12/09/22 08:00 Pulse 60 12/09/22 10:00 Resp 12 12/09/22 09:45 BP 102/40 12/09/22 10:00 Pulse Ox 96 12/09/22 10:00 FiO2 Intake & Output 12/08/22 12/09/22 12/09/22 18:59 06:59 18:59 Intake Total 1224.03 6669.129 8769.386 Output Total 255 275 30 Balance 969.03 8638.750 4737.386 Weight 81.2 kg Intake: IV 1100 1075 1185 Calcium Gluconate in NaCl 100 2 gm In Saline 1 100ml. bag @ 100 mls/hr IVPB ONCE ONE Rx#:[id number] Lactated Ringers 1,000 ml 1000 @ 999 mls/hr IV .Q1H1M ONE Rx#:[id number] Sodium Chloride 0.9% 1, 1100 1075 85 000 ml @ 75 mls/hr IV . [id number] [facility] Rx#:[id number] Intake, IV Titration 124.03 207.356 156.386 Amount Norepinephrine 4 mg In 24.03 207.356 156.386 Sodium Chloride 0.9% 250 ml @ 0.03 MCG/KG/MIN 6. 801 mls/hr IV .Q24H [facility] Rx#:[id number] Sodium Chloride 0.9% 1, 100 000 ml @ 75 mls/hr IV . [id number] [facility] Rx#:[id number] Output: Chest Tube Drainage 255 275 30 Chest Tube Left Anterior 255 275 30 Chest Urine 0 0 0 Other: Voiding Method Urinal Urinal Urinal # Voids 0 - Exam GENERAL EXAM: Alert, weak 87-year-old male, on 2 L nasal cannula, fairly comfortable in no apparent distress. HEAD: Normocephalic. EYES: Normal reaction of pupils, equal size. NOSE: Clear with pink turbinates. THROAT: No erythema or exudates. NECK: No masses, no JVD. CHEST: No chest wall deformity. Left-sided chest tube in place, to Pleur-evac and wall suction LUNGS: Equal air entry with bilateral scattered rhonchi, diminished on the left lung base. CVS: S1 and S2 normal with no audible murmur, regular rhythm. ABDOMEN: No hepatosplenomegaly, normal bowel sounds, no guarding or rigidity. SPINE: No scoliosis or deformity SKIN: No rashes CENTRAL NERVOUS SYSTEM: No focal deficits, tone is normal in all 4 extremities. EXTREMITIES: There is no peripheral edema. No clubbing, no cyanosis. Peripheral pulses are intact. - Labs CBC & Chem 7: 12/09/22 05:19 12/09/22 05:19 Labs: Abnormal Lab Results - Last 24 Hours (Table) 12/07/22 12/08/22 12/09/22 Range/Units 18:58 21:34 05:19 RBC 2.37 L (4.30-5.90) m/uL Hgb 7.0 L (13.0-17.5) gm/dL Hct 22.2 L (39.0-53.0) % RDW 16.5 H (11.5-15.5) % Lymphocytes # 0.6 L (1.0-4.8) k/uL PT (9.0-12.0) sec INR (<1.2) Potassium (3.5-5.1) mmol/L Chloride (98-107) mmol/L Carbon Dioxide (22-30) mmol/L BUN (9-20) mg/dL Creatinine (0.66-1.25) mg/dL Glucose (74-99) mg/dL POC Glucose (mg/dL) 143 H (70-110) mg/dL Calcium (8.4-10.2) mg/dL Total Protein (6.3-8.2) g/dL Albumin (3.5-5.0) g/dL Crossmatch See Detail 12/09/22 12/09/22 Range/Units 05:19 05:19 RBC (4.30-5.90) m/uL Hgb (13.0-17.5) gm/dL Hct (39.0-53.0) % RDW (11.5-15.5) % Lymphocytes # (1.0-4.8) k/uL PT 12.6 H (9.0-12.0) sec INR 1.2 H (<1.2) Potassium 5.9 H (3.5-5.1) mmol/L Chloride 110 H (98-107) mmol/L Carbon Dioxide 20 L (22-30) mmol/L BUN 89 H (9-20) mg/dL Creatinine 4.38 H (0.66-1.25) mg/dL Glucose 136 H (74-99) mg/dL POC Glucose (mg/dL) (70-110) mg/dL Calcium 7.1 L (8.4-10.2) mg/dL Total Protein 4.8 L (6.3-8.2) g/dL Albumin 2.4 L (3.5-5.0) g/dL Crossmatch Assessment and Plan Assessment: Spontaneous left pneumothorax. ThoraVent was placed in the ER resulting in partial reexpansion of a large left 75% pneumothorax. He did go down for a CAT scan of the chest that revealed a large left-sided hydropneumothorax with significant airspace consolidation in the left upper lobe. Some atelectatic changes of the left lower lobe. Left upper lobe masslike consolidation measuring 8 cm. Left-sided chest tube was not in optimal position for fluid drainage. On 12/07/2022 he transferred to the intensive care unit. A left-sided #28-Colombian chest tube was placed and with a significant amount of bloody return. Thora-Vent was discontinued. He has had over 3 L ML's of bloody fluid from the chest cavity thus far. Acute hypoxic respiratory failure secondary to above. Currently on 2 L nasal cannula. Acute anemia secondary to above received 1 unit of packed red blood cells, current hemoglobin 7.0 second unit has been ordered Acute renal failure, worsening creatinine 4.38, GFR 11 Chronic kidney disease stage IV Moderate to severe background COPD. Managed outpatient with [facility]. Hypertension Hyperlipidemia Nonischemic cardiomyopathy Biventricular pacemaker Coronary artery disease Remote history of pulmonary embolism Peripheral vascular disease BPH Glaucoma Ex-smoker, approximately 40 pack years Plan: The patient was seen and evaluated Chest x-ray, labs and medications reviewed Ordered another unit of packed red blood cells Over 3 L of bloody fluid from the left chest thus far Remains off Eliquis 1 L of lactated Ringer's ordered Normal saline at 75 ML's an hour Titrate the norepinephrine as tolerated Incentive spirometer, bronchodilators DO NOT RESUSCITATE/DO NOT INTUBATE CODE STATUS We will continue to follow and make further recommendations based on his clinical status I have personally seen and examined the patient, performed the documentation and the assessment and plan as written. Number of minutes spent on the visit: 10.
[2022-12-09] MEDS ORDERED: SODIUM CHLORIDE 0.9% 1,000 ML IV SCH (11:15)
--- NOTE | 2022-12-09 11:41 | P.NPCON ---
History of Present Illness - Reason for Consult acute renal failure - History of Present Illness Patient is an 87-year-old male with history of coronary artery disease, valvular heart disease CK D stage IV and hyperlipidemia. Baseline creatinine has been around 1.8-2 mg/dL. Patient was admitted to the hospital with complaints of shortness of breath. He was actually sent in from pulmonologists office. The patient was noted to have a spontaneous left pneumothorax. Thoravent was placed in the ER patient was subsequently also noted to have large hemothorax. Patient had been hypotensive with systolic blood pressure in the 80s. Currently maintained on levo fed. Urine output has dropped and patient has had 0 mL of urine overnight. Patient has been transfused packed RBCs and levo fed is currently being decreased. Serum potassium was elevated at 5.9 today. Blood sugar was 143. Bladder scan did not show any significant retention. Review of Systems As per HPI Past Medical History Past Medical History: Coronary Artery Disease (CAD), Heart Failure, COPD, Eye Disorder, Hearing Disorder / Deafness, Hyperlipidemia, Hypertension, Musculoskeletal Disorder, Pulmonary Embolus (PE), Renal Disease, Vascular Disorder Additional Past Medical History / Comment(s): CMP. Glaucoma, macular degeneration bilat. Degenerative arthritis multiple joints, chronic kidney failure, severe diverticulitis, spinal stenosis, bruises easily, sl blockage in legs.PTX History of Any Multi-Drug Resistant Organisms: None Reported Past Surgical History: Appendectomy, Bowel Resection, Cardiac Valve Replacement, Heart Catheterization, Joint Replacement, Pacemaker Additional Past Surgical History / Comment(s): Aortic valve replacement August 2010, Pacemaker placed September 2011, new battery 12/2019 est, kevin cataracts, kevin hip replacements, epidural inj 12/2019 est, Cinefluoroscopy of leasd 06/03/20 Past Anesthesia/Blood Transfusion Reactions: No Reported Reaction Type of Cardiac Device: Biventricular Pacemaker, Permanent Pacemaker Device Placement Date:: 07-13-20 Past Psychological History: No Psychological Hx Reported Smoking Status: Former smoker Past Alcohol Use History: None Reported Past Drug Use History: None Reported - Past Family History Daughter(s) Family Medical History: Cancer Additional Family Medical History / Comment(s): . Father Family Medical History: Cancer Medications and Allergies Home Medications Medication Instructions Recorded Confirmed Type RX: Fenofibrate,Micronized 134 mg PO DAILY 09/13/15 12/06/22 History [Fenofibrate] RX: Latanoprost Ophth [Xalatan 1 drops BOTH EYES HS 09/13/15 12/06/22 History 0.005%] RX: Multivit-Min/FA/Lycopen/Lutein 1 tab PO DAILY 09/13/15 12/06/22 History [Centrum Silver Tablet] RX: Tamsulosin [Flomax] 0.4 mg PO DAILY 09/13/15 12/06/22 History RX: Acetaminophen [Tylenol 1,300 mg PO TID PRN 12/03/17 12/06/22 History Arthritis] RX: Vit C/E/Zn/Coppr/Lutein/Zeaxan 1 cap PO BID 12/03/17 12/06/22 History [Preservision Areds 2 Softgel] RX: Aspirin [Adult Low Dose 81 mg PO HS 05/31/20 12/06/22 History Aspirin EC] RX: Furosemide [Lasix] 40 mg PO DAILY 05/31/20 12/06/22 History RX: Apixaban [Eliquis] 2.5 mg PO BID #180 tablet 07/14/20 12/06/22 Rx RX: carvediloL [Coreg] 6.25 mg PO BID-W/MEALS #180 tab 07/14/20 12/06/22 Rx Atorvastatin [Lipitor] 20 mg PO HS 12/06/22 12/06/22 History Cholecalciferol [Vitamin D3 (25 25 mcg PO HS 12/06/22 12/06/22 History Mcg = 1000 Iu)] Ipratropium-Albuterol Nebulize 3 ml INHALATION RT-DAILY 12/06/22 12/06/22 History [Duoneb 0.5 mg-3 mg/3 ml Soln] Allergies Allergy/AdvReac Type Severity Reaction Status Date / Time Iodine and Iodide Containing AdvReac Unknown STATES Verified 12/06/22 12:40 Produc UNABLE TO HAVE DUE TO KIDNEY DISEASE. NSAIDS (Non-Steroidal AdvReac Unknown STATES Verified 12/06/22 12:40 Anti-Inflamma UNABLE TO TAKE DUE TO KIDNEY DISEASE. adhesive tape AdvReac Rash/Hives Verified 12/06/22 12:40 Physical Exam Vitals: Vital Signs Temp Pulse Resp BP Pulse Ox 12/09/22 11:00 65 15 118/38 94 L 12/09/22 10:45 60 112/41 96 03/25/23 10:30 60 14 113/41 97 12/09/22 10:15 64 117/40 97 12/09/22 10:00 60 102/40 96 12/09/22 09:45 60 12 115/41 96 12/09/22 09:30 60 14 114/39 96 12/09/22 09:15 60 117/43 94 L 12/09/22 09:00 60 12 115/40 94 L 12/09/22 08:45 60 14 110/37 93 L 12/09/22 08:30 60 16 117/37 93 L 12/09/22 08:15 60 97/40 92 L 12/09/22 08:00 97.8 F 60 14 104/38 98 12/09/22 07:55 60 03 07:45 60 111/41 100 12/09/22 07:37 60 12/09/22 07:36 97 12/09/22 07:30 60 12 105/37 98 12/09/22 07:15 60 120/38 98 12/09/22 07:00 63 122/36 99 12/09/22 06:45 60 119/38 99 12/09/22 06:30 60 110/40 99 12/09/22 06:15 60 110/41 98 12/09/22 06:00 60 107/40 98 12/09/22 05:45 60 106/39 97 12/09/22 05:30 60 113/35 96 12/09/22 05:15 60 105/38 96 12/09/22 05:00 60 105/39 98 12/09/22 04:45 60 104/36 97 12/09/22 04:30 60 101/42 97 12/09/22 04:15 60 101/43 95 12/09/22 04:00 98.2 F 60 113/37 96 12/09/ 03:45 60 85/66 97 12/09/22 03:30 60 103/38 97 12/09/22 03:15 60 103/39 95 12/09/22 03:00 60 101/34 97 12/09/22 02:45 60 108/39 98 12/09/22 02:30 60 102/36 95 12/09/22 02:15 60 97/38 97 12/09/22 02:00 60 108/34 98 12/09/22 01:45 60 101/35 97 12/09/22 01:30 60 96/39 98 12/09/22 01:15 60 103/40 98 12/09/22 01:00 60 102/37 97 12/09/22 00:45 60 16 101/36 95 12/09/22 00:30 60 16 109/38 94 L 12/09/22 00:15 64 17 105/37 95 12/09/22 00:10 64 17 105/37 94 L 12/09/22 00:00 98.0 F 60 22 106/37 96 12/08/22 23:45 60 20 103/37 98 12/08/22 23:30 60 14 109/37 94 L 12/08/22 23:15 62 14 102/37 96 12/08/22 23:00 60 16 103/35 96 12/08/22 22:45 60 16 95/37 97 12/08/22 22:30 64 17 97/37 97 12/08/22 22:15 60 16 103/35 93 L 12/08/22 22:00 74 16 79/48 93 L 12/08/22 21:45 60 20 102/34 97 12/08/22 21:30 62 18 98/32 96 12/08/22 21:15 60 16 86/66 100 12/08/22 21:00 60 15 99/38 100 12/08/22 20:45 60 18 108/74 98 12/08/22 20:30 64 12 101/37 100 12/08/22 20:15 82 23 92/65 98 12/08/22 20:00 97.9 F 60 17 102/34 98 12/08/22 19:45 60 19 103/37 99 12/08/22 19:30 60 16 104/37 100 12/08/22 19:15 107 H 17 101/37 100 12/08/22 19:00 61 21 93/38 99 12/08/22 18:45 110 H 19 98 12/08/22 18:30 69 18 103/37 100 12/08/22 18:15 60 14 105/36 99 12/08/22 18:00 60 18 100/39 99 12/08/22 17:45 60 19 90/39 95 12/08/22 17:30 60 21 97/35 96 12/08/22 17:15 110 H 21 91/39 99 12/08/22 17:00 60 18 102/36 100 12/08/22 16:45 108 H 17 103/39 99 12/08/22 16:30 90 19 114/47 96 12/08/22 16:15 20 103/33 98 12/08/22 16:00 98.2 F 65 14 104/35 97 12/08/22 15:45 108 H 22 107/36 96 12/08/22 15:30 62 23 109/37 96 12/08/22 15:15 88 18 105/35 97 12/08/22 15:00 60 15 104/37 96 12/08/22 14:45 87 14 103/36 99 12/08/22 14:30 60 12 107/33 99 12/08/22 14:15 65 22 80/49 98 12/08/22 14:00 80 20 99/33 97 12/08/22 13:45 65 17 105/36 99 12/08/22 13:30 60 16 101/34 99 12/08/22 13:15 121 H 15 102/34 98 12/08/22 13:00 108 H 13 96/32 98 12/08/22 12:45 60 12 101/35 99 12/08/22 12:30 121 H 14 99/37 99 12/08/22 12:15 109 H 18 93/35 98 12/08/22 12:00 98.1 F 108 H 22 106/31 99 12/08/22 11:45 109 H 15 100/33 98 12/08/22 11:30 110 H 21 98/30 97 Intake and Output 12/08/22 12/09/22 12/09/22 22:59 06:59 14:59 Intake Total 1031.046 651.31 1351.386 Output Total 125 150 160 Balance 906.046 501.31 1191.386 Intake: IV 192 376 1143 Calcium Gluconate in NaCl 100 2 gm In Saline 1 100ml. bag @ 100 mls/hr IVPB ONCE ONE Rx#:[id number] Lactated Ringers 1,000 ml 1000 @ 999 mls/hr IV .Q1H1M ONE Rx#:[id number] Sodium Chloride 0.9% 1, 875 600 85 000 ml @ 75 mls/hr IV . [id number] [facility] Rx#:[id number] Intake, IV Titration 156.046 51.31 156.386 Amount Norepinephrine 4 mg In 156.046 51.31 156.386 Sodium Chloride 0.9% 250 ml @ 0.03 MCG/KG/MIN 6. 801 mls/hr IV .Q24H [facility] Rx#:[id number] Lipid 10 Sodium Chloride 0.9% 1, 10 000 ml @ 75 mls/hr IV . [id number] [facility] Rx#:[id number] Output: Chest Tube Drainage 125 150 70 Chest Tube Left Anterior 125 150 70 Chest Urine 0 0 90 Other: Voiding Method Urinal Urinal Urinal # Voids 0 Weight 81.2 kg Patient is awake, comfortable, does not communicate much Examination of the heart S1 and S2 Examination of lungs decreased breath sounds on the left side chest tube noted on the left side Abdomen is soft nontender Examination of lower extremity shows no evidence of edema MEDIA COORDINATOR exam grossly intact Results - Lab Results Most recent lab results Calcium 7.1 mg/dL (8.4-10.2) L 12/09/22 05:19 Magnesium 2.2 mg/dL (1.6-2.3) 12/08/22 05:21 12/09/22 05:19 12/09/22 05:19 Assessment and Plan Assessment: 1. Acute kidney injury secondary to hypotension and hypoperfusion, oliguric ATN. Check urine analysis. Check ultrasound of the kidneys. If patient's urine output does not improve and potassium remains elevated he will need renal replacement therapy. 2. Hyperkalemia associated with acute kidney injury, status post IV treatment. 3. CK D stage IV baseline creatinine 1.8-2. Etiology is likely nephrosclerosis. No UA is available at this time 4. Left-sided spontaneous Pneumothorax with subsequent hemothorax status post chest tube 5. Acute blood loss Anemia, status post packed RBCs transfusion 6. Metabolic acidosis associated with acute kidney injury Plan: Repeat labs to follow-up on potassium Insert Jules catheter Change IV fluids to IV bicarb Check ultrasound of the kidneys Will try higher dose of Lasix to help with the urine output if no response after IV fluids Patient will need renal replacement therapy if potassium remains elevated with p oor urine output. Thank you for the consultation. We will continue to follow the patient with you during his hospitalization
[2022-12-09] MEDS ORDERED: SODIUM ZIRCONIUM CYCLOSILICATE 10 GM PACKET PO ONE ×2 (12:00→16:39)
[2022-12-09] MEDS: NOREPINEPHRINE 4 MG in SODIUM CHLORIDE 0.9% 250 ML IV SCH (12:57)
[2022-12-09] MEDS: DEXTROSE 5% IN WATER 1,000 ML with SODIUM BICARB (1 MEQ/ML) 150 ML IV SCH (14:21)
--- NOTE | 2022-12-09 14:38 | US ---
EXAMINATION TYPE: US kidneys/renal and bladder DATE OF EXAM: 12/09/2022 COMPARISON: NONE CLINICAL HISTORY: [email or web address]. MAKAYLA. EXAM MEASUREMENTS: Right Kidney: 10.4 x 4.9 x 4.8 cm Left Kidney: 11.2 x 5.3 x 4.8 cm Exam is limited due to gas and pt body habitus. Right Kidney: No hydronephrosis or masses seen Left Kidney: Hypoechoic area seen lower pole: 2.2 x 2.2 x 1.1 cm. Bladder: Not distended, unable to evaluate. Patient has catheter. Free fluid is seen within the pelvis near the bladder. Bilateral Jets seen: No Incidental finding: Multiple hyperechoic foci seen within the gallbladder. Wall measures 0.36 cm, s lightly thickened versus upper limits?. IMPRESSION: There is cortical thinning in the right kidney. No evidence of solid renal mass or obstruction. Irreg ular cyst in the lower pole left kidney. Cholelithiasis.
[2022-12-09 15:26] LABS: Glucose,Whole Blood 167 mg/dL (70-110)
[2022-12-09] MEDS ORDERED: DESMOPRESSIN ACETATE 24 MCG in SODIUM CHLORIDE 0.9% 50 ML IVPB ONE (15:30)
[2022-12-09 15:48] LABS: Appearance,Urine Cloudy (Clear); Bilirubin,Urine Negative (Negative); Blood,Urine Negative (Negative); Color,Urine Dark Yellow; Glucose,Urine (UA) Negative (Negative); Hyaline Casts,Urine 1 /lpf (0-2); Ketones,Urine Negative (Negative); Leukocyte Esterase,Urine Negative (Negative); Nitrite,Urine Negative (Negative); Protein,Urine 1+ (Negative); Specific Gravity,Urine 1.019 (1.001-1.035); Squamous Epithelial Cell,Urine <1 /hpf (0-4); Urobilinogen,Urine <2.0 mg/dL (<2.0); WBC,Urine 1 /hpf (0-5)
[2022-12-09 15:51] LABS: HCT 25.2 % (39.0-53.0); HGB 8.4 gm/dL (13.0-17.5); MCH 30.6 pg (25.0-35.0); MCHC 33.1 g/dL (31.0-37.0); MCV 92.4 fL (80.0-100.0); Mean Platelet Volume 8.5; Platelet Count 214 k/uL (150-450); Poikilocytosis Slight; RBC 2.73 m/uL (4.30-5.90); WBC 6.7 k/uL (3.8-10.6)
[2022-12-09] MEDS: ATORVASTATIN 20 MG TAB PO SCH (20:10)
[2022-12-09] MEDS: LATANOPROST 0.005% OPHTH DROPS 2.5 ML BTL BOTH EYES SCH (20:11)
[2022-12-10] MEDS: MORPHINE SULFATE 4 MG/ML SYRINGE IV PRN ×4 (00:57→21:13)
[2022-12-10 04:42] LABS: Anisocytosis Slight; Basophils % (A) 0 %; Eosinophils # (A) 0.2 k/uL (0-0.7); Eosinophils % (A) 3 %; HCT 23.3 % (39.0-53.0); HGB 7.7 gm/dL (13.0-17.5); Lymphocytes # (A) 0.5 k/uL (1.0-4.8); Lymphocytes % (A) 9 %; MCH 30.1 pg (25.0-35.0); MCHC 33.3 g/dL (31.0-37.0); MCV 90.4 fL (80.0-100.0); Mean Platelet Volume 8.3; Monocytes # (A) 0.6 k/uL (0-1.0); Monocytes % (A) 10 %; Neutrophils # (A) 4.5 k/uL (1.3-7.7); Neutrophils % (A) 75 %; Platelet Count 181 k/uL (150-450); Poikilocytosis Slight; RBC 2.58 m/uL (4.30-5.90); RDW 16.3 % (11.5-15.5)
[2022-12-10 04:49] LABS: Calcium 7.1 mg/dL (8.4-10.2); Potassium 5.5 mmol/L (3.5-5.1)
[2022-12-10] MEDS: DEXTROSE 5% IN WATER 1,000 ML with SODIUM BICARB (1 MEQ/ML) 150 ML IV SCH (06:16)
--- NOTE | 2022-12-10 07:24 | XR ---
EXAMINATION TYPE: XR chest 1V portable DATE OF EXAM: 12/10/2022 COMPARISON: 12/09/2022 INDICATION: Short of breath TECHNIQUE: Single frontal view of the chest is obtained. FINDINGS: The heart size is enlarged. The pulmonary vasculature is normal. There is increased lung opacity through the left mid and lower lung field. Some mild infiltrates at t he right base. Right-sided pacemaker is present. No pneumothorax is evident. IMPRESSION: 1. Bibasilar infiltrates. This is larger on the left. Correlate for pneumonia.
--- NOTE | 2022-12-10 07:32 | P.PN ---
Subjective Progress Note Date: 12/10/22 Principal diagnosis: Large left-sided spontaneous pneumothorax, acute respiratory failure, acute blood loss anemia. 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 Remains ventricular paced on telemetry, off IV Levophed since yesterday afternoon, did receive another unit of blood yesterday. Does complain of some pain at his chest tube insertion site but states controlled on current medication regimen, denies current shortness of breath. Patient is very tired and does not have a lot of energy. Left pleural chest tube remains to continuous wall suction, 150 mL overnight and 450 mL thin serosanguinous in the last 24 hours. Chest x-ray and lab work reviewed. Kidney function has continued to worsen, offered dialysis, patient/ decline. Per nursing patient has had some confusion. Objective - Vital Signs Vital signs: Vital Signs Temp 97.9 F 12/10/22 04:00 Pulse 60 12/10/22 07:00 Resp 16 12/10/22 07:00 BP 100/48 12/10/22 07:00 Pulse Ox 100 12/10/22 07:00 FiO2 Intake & Output 12/09/22 12/10/22 12/10/22 18:59 06:59 18:59 Intake Total 2225.661 975 Output Total 360 275 Balance 1865.661 700 Weight 75 kg Intake: IV 1710 975 Calcium Gluconate in NaCl 100 2 gm In Saline 1 100ml. bag @ 100 mls/hr IVPB ONCE ONE Rx#:[id number] Dextrose 5% in Water 1, 300 975 000 ml @ 75 mls/hr IV . [id number] [facility] with Sodium Bicarb (1 Meq/ml) 150 ml Rx#:[id number] Lactated Ringers 1,000 ml 1000 @ 999 mls/hr IV .Q1H1M ONE Rx#:[id number] Sodium Chloride 0.9% 1, 310 000 ml @ 75 mls/hr IV . [id number] [facility] Rx#:[id number] Intake, IV Titration 195.661 Amount Norepinephrine 4 mg In 195.661 Sodium Chloride 0.9% 250 ml @ 0.03 MCG/KG/MIN 6. 801 mls/hr IV .Q24H [facility] Rx#:[id number] Blood Product 310 Rc As-1 Unit 310 [id number] Lipid 10 Sodium Chloride 0.9% 1, 10 000 ml @ 75 mls/hr IV . [id number] [facility] Rx#:[id number] Output: Chest Tube Drainage 200 200 Chest Tube Left Anterior 200 200 Chest Urine 160 75 Other: Voiding Method Indwelling Catheter Indwelling Catheter # Voids 0 - Exam CONSTITUTIONAL: Appears comfortable, cooperative, no acute distress RESPIRATORY: Lungs sounds diminished bilaterally, left greater than right. Respirations even, nonlabored. Currently on 4 L nasal cannula with oxygen saturation 99%. Unable to utilize incentive spirometry appropriately at this time. Weak cough. CARDIOVASCULAR: S1, S2 present. Regular rate and rhythm, V paced on telemetry. Palpable peripheral pulses bilaterally. No edema present. No calf pain or tenderness noted. SCDs present. GASTROINTESTINAL: Abdomen soft, nontender, nondistended. Active bowel sounds present 4 quadrants. Tolerating minimal diet GENITOURINARY: Jules present draining clear yellow urine, output 235 mL in the last 24 hours INTEGUMENTARY: Skin is warm and dry NEUROLOGIC: Cranial nerves II through XII intact MUSKULOSKELETAL: Able to move all extremities, strength equal bilaterally, generalized weakness present PSYCHIATRIC: Alert, appropriate affect INVASIVE LINES AND TUBES: Left pleural chest tube present and connected to wall suction, 150 mL serosanguineous drainage overnight, 450 mL in the last 24 hours - Allied health notes Allied health notes reviewed: nursing - Labs CBC & Chem 7: 12/10/22 03:55 12/10/22 03:55 Labs: Abnormal Lab Results - Last 24 Hours (Table) 12/07/22 12/09/22 12/09/22 Range/Units 18:58 15:10 15:16 RBC (4.30-5.90) m/uL Hgb (13.0-17.5) gm/dL Hct (39.0-53.0) % RDW (11.5-15.5) % Lymphocytes # (1.0-4.8) k/uL Potassium 5.6 H (3.5-5.1) mmol/L BUN (9-20) mg/dL Creatinine (0.66-1.25) mg/dL Glucose (74-99) mg/dL POC Glucose (mg/dL) (70-110) mg/dL Calcium (8.4-10.2) mg/dL Urine Protein 1+ H (Negative) Crossmatch See Detail 12/09/22 12/09/22 12/10/22 Range/Units 15:16 15:25 03:55 RBC 2.73 L 2.58 L (4.30-5.90) m/uL Hgb 8.4 L 7.7 L (13.0-17.5) gm/dL Hct 25.2 L 23.3 L (39.0-53.0) % RDW 16.0 H 16.3 H (11.5-15.5) % Lymphocytes # 0.5 L (1.0-4.8) k/uL Potassium (3.5-5.1) mmol/L BUN (9-20) mg/dL Creatinine (0.66-1.25) mg/dL Glucose (74-99) mg/dL POC Glucose (mg/dL) 167 H (70-110) mg/dL Calcium (8.4-10.2) mg/dL Urine Protein (Negative) Crossmatch 12/10/22 Range/Units 03:55 RBC (4.30-5.90) m/uL Hgb (13.0-17.5) gm/dL Hct (39.0-53.0) % RDW (11.5-15.5) % Lymphocytes # (1.0-4.8) k/uL Potassium 5.5 H (3.5-5.1) mmol/L BUN 99 H (9-20) mg/dL Creatinine 4.76 H (0.66-1.25) mg/dL Glucose 160 H (74-99) mg/dL POC Glucose (mg/dL) (70-110) mg/dL Calcium 7.1 L (8.4-10.2) mg/dL Urine Protein (Negative) Crossmatch - Imaging and Cardiology Chest x-ray: report reviewed, image reviewed Assessment and Plan Assessment: Large left-sided spontaneous pneumothorax, status post thoravent then subsequent chest tube placement, resolved Acute respiratory failure Acute blood loss anemia Acute on chronic kidney disease, stage IV Hyperkalemia Anuria Moderate to severe COPD Previous tobacco dependence Coronary artery disease with previous PCI Previous aortic valve replacement Permanent pacemaker placement, biventricular Cardiomyopathy Peripheral arterial disease History of pulmonary embolism on Eliquis for anticoagulation, last dose 12/06/22 a.m. History of hypertension, currently hypotensive on IV Levophed Hyperlipidemia BPH Plan: Continue to monitor chest tube output and consistency No surgical intervention warranted. Continue conservative management Wean O2 as tolerated, encourage incentive spirometry use Monitor labs and x-rays, transfuse per internal medicine/editorial assistant recommendations Increase activity as tolerated Patient has poor prognosis. Currently DO NOT RESUSCITATE status. Recommend palliative care consult Medical management of other comorbidities per internal medicine, pulmonology Will continue to follow and make recommendations as appropriate
[2022-12-10] MEDS: ALBUTEROL NEBULIZED 2.5 MG/3 ML INHALATION SCH (07:42)
[2022-12-10] MEDS: IPRATROPIUM 0.5 MG/2.5 ML NEBU INHALATION SCH (07:42)
[2022-12-10] MEDS: SODIUM BICARBONATE TAB 650 MG TAB PO SCH (09:13)
[2022-12-10] MEDS: VIT A,C & E-LUTEIN-MINERALS 1 EACH TAB PO SCH (09:13)
[2022-12-10] MEDS: MULTIVITAMINS, THERA 1 EACH TAB PO SCH (09:13)
[2022-12-10] MEDS: TAMSULOSIN 0.4 MG CAP.ER.24H PO SCH (09:13)
[2022-12-10] MEDS: FENOFIBRATE 160 MG TAB PO SCH (09:14)
--- NOTE | 2022-12-10 10:02 | P.PN ---
Subjective Progress Note Date: 12/10/22 Hospital Course: 87-year-old male with a past medical history of CAD status post stenting and pa cemaker placement, aortic valve replacement 2009, PVD on anticoagulant with Eliquis, CKD stage IV, and hyperlipidemia. He presented to the emergency department secondary to reports of shortness of breath. Patient reported one week ago he was eating toast with cinnamon and states that he inhaled some of the cinnamon and immediately began coughing and had since been experiencing a difficult time breathing so he called and made an appointment with his gas or water meter installer. Patient went in to be evaluated by his gas or water meter installer, Dr. Will, this morning and was found to have a large left-sided pneumothorax and sent straight to the emergency department. Upon arrival to the emergency department patient underwent full evaluation. A chest x-ray was completed revealing large left-sided pneumothorax consisting of approximately 75%. Chest tube then placed in the emergency department. Labs were completed and reviewed. CBC revealing normocytic anemia with stable hemoglobin of 11.3 and BMP showing slight elevation in renal function with BUN 76, creatinine 2.22, and GFR of 25 with baseline creatinine of 1.8. Repeat chest x-ray completed status post insertion of left sided chest tube, radiology report again reviewed showing left-sided chest tube is in place and pneumothorax persisting but showing improvement estimated at 15-20% from previous 75%, chest x-ray also concerning for persistent left hilar masslike density. Patient, laboratory findings, and imaging were discussed in detail with the ED physician. Patient was admitted under our services to stepdown unit with telemetry with consultation to pulmonology. Repeat chest x-ray was completed this morning in radiology report reviewed revealing left-sided pleural catheter redemonstrated but now reporting the development of small left apical pneumothorax with additional worsening of aeration throughout the left hemithorax with extensive opacity having developed. He had significant bloody drainage from chest tube, his hemoglobin reflecting significant blood loss anemia. CT chest without contrast showed large left- sided hydropneumothorax with left upper lobe masslike consolidation measuring 8 cm. Left-sided chest tube not in optimal position for drainage of pleural fluid. He was taken to medical ICU, and had another chest tube placed, with 1 L of bloody drainage out initially. His hemoglobin continues to worsen. He renae nues to have significant output from his chest tube. He is currently on nasal cannula, remains in the medical ICU. He is also an oliguric acute kidney injury. Subjective: Patient seen and examined at bedside. Overnight, patient was confused. Mental status has since been waxing and waning. He denies any significant chest pain, shortness of breath. He denies any abdominal pain, urinary or bowel complaints. His urine output has significantly dropped. He continues to have bloody drainage from his chest tube. Pertinent positives and negatives as discussed above, [facility] and all other systems are negative. Vitals Signs Reviewed. General: Lethargic, no distress, appears at stated age Derm: warm, dry Head: atraumatic, normocephalic, symmetric Eyes: EOMI, no lid lag, anicteric sclera Mouth: no lip lesion, mucus membranes moist Cardiovascular: S1S2 reg, systolic murmur Lungs: Reduced breath sounds on the left side, no accessory muscle use, supplem ental oxygen, left-sided chest tube with bloody drainage Abdominal: soft, nontender to palpation, no guarding, no appreciable organomegaly Ext: no gross muscle atrophy, no edema, no contractures Neuro: CN II-XI grossly intact, no focal neuro deficits Psych: Lethargic, oriented, appropriate affect Data Reviewed Today: Pertinent Labs: Hemoglobin 7.7, potassium 5.5, BUN 99, creatinine 4.76, glucose 160 Imaging: Chest x-ray independently interpreted, worsening bibasilar infiltrates, worsening left-sided opacity Assessment and Plan: Patient is currently critically ill. Has a poor prognosis. He does not want dialysis. Active: Large left-sided hemo-pneumothorax status post another chest tube, this was likely in the setting of aspiration versus spontaneous pneumothorax Acute blood loss anemia History of anemia of chronic disease Acute hypoxic respiratory failure Anuric, Acute kidney injury on stage IV chronic kidney disease Hyperkalemia Anion gap metabolic acidosis Acute metabolic encephalopathy, likely uremic -He continues to have significant bloody drainage output from his chest tube -CT surgery note reviewed: Recommended waterseal chest -Pulmonology following -Patient is currently on IV opiates for pain -Hemoglobin continues to downtrend, currently at 7.7, status post 1 unit yesterday -Currently on 2 L nasal cannula, continue to wean -Acute kidney injury likely setting of blood loss anemia and hypovolemia -Urine output still really poor, patient does not want hemodialysis -Nephrology following, renal ultrasound shows no obstruction -On sodium bicarb drip at 75 mL an hour -Palliative care consulted Chronic: Hemorrhagic shock CAD status post stent Pacemaker Aortic valve replacement Peripheral vascular disease, holding aspirin and Eliquis BPH Macular degeneration Dyslipidemia DVT ppx: SCDs Code status: DNR/DNI Anticipated discharge place: Pending clinical course Anticipated discharge time: Pending clinical course Objective - Vital Signs Vital signs: Vital Signs Temp 97.6 F 12/10/22 08:00 Pulse 60 12/10/22 09:00 Resp 20 12/10/22 09:00 BP 118/49 12/10/22 09:00 Pulse Ox 96 12/10/22 09:00 FiO2 Intake & Output 12/09/22 12/10/22 12/10/22 18:59 06:59 18:59 Intake Total 2225.661 975 150 Output Total 360 275 19 Balance 1865.661 700 131 Weight 75 kg Intake: IV 1710 975 150 Calcium Gluconate in NaCl 100 2 gm In Saline 1 100ml. bag @ 100 mls/hr IVPB ONCE ONE Rx#:[id number] Dextrose 5% in Water 1, 300 975 150 000 ml @ 75 mls/hr IV . [id number] [facility] with Sodium Bicarb (1 Meq/ml) 150 ml Rx#:[id number] Lactated Ringers 1,000 ml 1000 @ 999 mls/hr IV .Q1H1M ONE Rx#:[id number] Sodium Chloride 0.9% 1, 310 000 ml @ 75 mls/hr IV . [id number] [facility] Rx#:[id number] Intake, IV Titration 195.661 Amount Norepinephrine 4 mg In 195.661 Sodium Chloride 0.9% 250 ml @ 0.03 MCG/KG/MIN 6. 801 mls/hr IV .Q24H [facility] Rx#:[id number] Blood Product 310 Rc As-1 Unit 310 [id number] Lipid 10 Sodium Chloride 0.9% 1, 10 000 ml @ 75 mls/hr IV . [id number] [facility] Rx#:[id number] Output: Chest Tube Drainage 200 200 Chest Tube Left Anterior 200 200 Chest Urine 160 75 19 Other: Voiding Method Indwelling Catheter Indwelling Catheter Indwelling Catheter # Voids 0 - Labs CBC & Chem 7: 12/10/22 03:55 12/10/22 03:55 Labs: Abnormal Lab Results - Last 24 Hours (Table) 12/07/22 12/09/22 12/09/22 Range/Units 18:58 15:10 15:16 RBC (4.30-5.90) m/uL Hgb (13.0-17.5) gm/dL Hct (39.0-53.0) % RDW (11.5-15.5) % Lymphocytes # (1.0-4.8) k/uL Potassium 5.6 H (3.5-5.1) mmol/L BUN (9-20) mg/dL Creatinine (0.66-1.25) mg/dL Glucose (74-99) mg/dL POC Glucose (mg/dL) (70-110) mg/dL Calcium (8.4-10.2) mg/dL Urine Protein 1+ H (Negative) Crossmatch See Detail 12/09/22 12/09/22 12/10/22 Range/Units 15:16 15:25 03:55 RBC 2.73 L 2.58 L (4.30-5.90) m/uL Hgb 8.4 L 7.7 L (13.0-17.5) gm/dL Hct 25.2 L 23.3 L (39.0-53.0) % RDW 16.0 H 16.3 H (11.5-15.5) % Lymphocytes # 0.5 L (1.0-4.8) k/uL Potassium (3.5-5.1) mmol/L BUN (9-20) mg/dL Creatinine (0.66-1.25) mg/dL Glucose (74-99) mg/dL POC Glucose (mg/dL) 167 H (70-110) mg/dL Calcium (8.4-10.2) mg/dL Urine Protein (Negative) Crossmatch 12/10/22 Range/Units 03:55 RBC (4.30-5.90) m/uL Hgb (13.0-17.5) gm/dL Hct (39.0-53.0) % RDW (11.5-15.5) % Lymphocytes # (1.0-4.8) k/uL Potassium 5.5 H (3.5-5.1) mmol/L BUN 99 H (9-20) mg/dL Creatinine 4.76 H (0.66-1.25) mg/dL Glucose 160 H (74-99) mg/dL POC Glucose (mg/dL) (70-110) mg/dL Calcium 7.1 L (8.4-10.2) mg/dL Urine Protein (Negative) Crossmatch
--- NOTE | 2022-12-10 11:16 | P.PN ---
Subjective Progress Note Date: 12/10/22 I'm seeing this patient in new consultation today 12/07/2022 after being sent over from the pulmonary office with a spontaneous pneumothorax. 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 Patient was apparently eating a piece of cinnamon toast 7 days ago when he aspirated some of the cinnamon causing him to have significant coughing fit. After this, the patient developed some severe chest pain which he attributes to his pneumothorax. Denies any chest trauma. The pneumothorax was found when the patient presented to Dr. Lew's office yesterday. On arrival to [facility] is presenting chest x-ray showed a large left-sided pneumothorax estimated at 75%. Patient did have a left Thoravent placed in the ER. The most recent chest x-ray performed after the procedure shows a reduction in the left-sided pneumothorax to 15-20% with a persistent left hilar masslike density which could reflect expanding lung parenchyma. The Thoravent is currently placed to suction at -20 cm H2O, and there is about 30 mL of serosanguineous drainage in the chamber. Patient is currently resting comfortably in bed, on 2 L nasal cannula, in no acute distress. He is oxygenating at 98%. Patient's CBC on arrival showed a WBC count 8.3, hemoglobin 11.3, hematocrit 35, platelets 239,000. BMP on arrival shows sodium 141, potassium 4.5, chloride 101, serum CO2 31, BUN 76, creatinine chronically elevated at 2.2, glucose 123. Patient is currently receiving bronchodilators. He is receiving morphine when necessary for pain control. Normal saline is infusing at 100 ML's per hour. Vital signs are stable. The patient is seen today 12/08/2022 in follow-up in the intensive care unit. yesterday he was noticed to have a 4 g drop in hemoglobin. There is also some concern of the door vent was working appropriately. He did go down for a CAT scan of the chest that revealed a large left-sided hydropneumothorax with significant airspace consolidation in the left upper lobe. Some atelectatic changes of the left lower lobe. Left upper lobe masslike consolidation measurin g 8 cm. Left-sided chest tube was not in optimal position for fluid drainage. subsequently transferred to the intensive care unit. He was seen and evaluated by Dr. Hull who placed a left-sided #28-Bahraini chest tube and with a significant amount of bloody return. Thora-Vent was discontinued. He has had a total of 1700 ML's of bloody fluid from the chest cavity thus far. Currently to Pleura-vac and wall suction. He is currently laying in bed. Pale. Maintaining O2 saturations in the 90s on 4 L/m per nasal cannula. He has normal saline at 100 ML's per hour. He is requiring norepinephrine currently at 3 mcg/m. He was given 1 unit of packed red blood cells. His current hemoglobin is 7.6. White count 10.3. Platelets 248. Sodium 140. Potassium 5.7. Bicarbonate 19. BUN 82. Creatinine 3.14. Glucose 138. The patient is seen today 12/09/2022 in follow-up in the intensive care unit. Currently resting comfortably in bed. Last evening he developed increasing shortness of breath and congestion and was given Lasix 40 mg IVP 1. Today's chest x-ray continues to show increasing lung opacification of the left mid and lower lung magana with developing infiltrate at the right base. He is more awake and alert today. He did tolerate half of his breakfast. He is maintaining O2 saturations in the 90s on 2 L/m per nasal cannula. He has normal saline at KVO. Norepinephrine at 7 mcg/m. His chest tube continues to drain and had another 430 ML's out in the past 24 hours, still remains bloody. He did receive 1 unit of packed red blood cells yesterday. His current hemoglobin is 7.0. Platelets 242. White count 8.5. INR 1.2. Sodium 137. Potassium 5.9. Bicarb 20. BUN 89. Creatinine 4.38. Glucose 136. Eliquis remains on hold. The patient is seen today 12/10/2022 in follow-up in the intensive care unit. He is currently sitting up in bed. Awake and alert. Still quite pale and weak. Her O2 saturations in the 90s on 2 L/m per nasal cannula. He has D5W with 3 A of bicarbonate running at 75 ML's per hour. He had an additional 400 mL of bloody fluid returned from the chest tube the past 24 hours. Chest x-ray reveals bibasilar infiltrates left greater than right. He is status post 2 units of packed red blood cells this admission. Current hemoglobin 7.7. Platelets 181. White count 6.0. Sodium 138. Potassium 5.5. Bicarb 24. BUN 99. Creatinine 4.76. Glucose 160. Objective - Vital Signs Vital signs: Vital Signs Temp 97.6 F 12/10/22 08:00 Pulse 60 12/10/22 11:00 Resp 20 12/10/22 11:00 BP 105/46 12/10/22 11:00 Pulse Ox 95 12/10/22 11:00 FiO2 Intake & Output 12/09/22 12/10/22 12/10/22 18:59 06:59 18:59 Intake Total 2225.661 975 300 Output Total 360 275 39 Balance 1865.661 700 261 Weight 75 kg Intake: IV 1710 975 300 Calcium Gluconate in NaCl 100 2 gm In Saline 1 100ml. bag @ 100 mls/hr IVPB ONCE ONE Rx#:[id number] Dextrose 5% in Water 1, 300 975 300 000 ml @ 75 mls/hr IV . [id number] [facility] with Sodium Bicarb (1 Meq/ml) 150 ml Rx#:[id number] Lactated Ringers 1,000 ml 1000 @ 999 mls/hr IV .Q1H1M ONE Rx#:[id number] Sodium Chloride 0.9% 1, 310 000 ml @ 75 mls/hr IV . [id number] [facility] Rx#:[id number] Intake, IV Titration 195.661 Amount Norepinephrine 4 mg In 195.661 Sodium Chloride 0.9% 250 ml @ 0.03 MCG/KG/MIN 6. 801 mls/hr IV .Q24H [facility] Rx#:[id number] Blood Product 310 Rc As-1 Unit 310 [id number] Lipid 10 Sodium Chloride 0.9% 1, 10 000 ml @ 75 mls/hr IV . [id number] [facility] Rx#:[id number] Output: Chest Tube Drainage 200 200 Chest Tube Left Anterior 200 200 Chest Urine 160 75 39 Other: Voiding Method Indwelling Catheter Indwelling Catheter Indwelling Catheter # Voids 0 - Exam GENERAL EXAM: Alert, weak, pale 87-year-old male, on 2 L nasal cannula, fairly comfortable in no apparent distress. HEAD: Normocephalic. EYES: Normal reaction of pupils, equal size. NOSE: Clear with pink turbinates. THROAT: No erythema or exudates. NECK: No masses, no JVD. CHEST: No chest wall deformity. Left-sided chest tube in place, to Pleur-evac and wall suction LUNGS: Equal air entry with bilateral scattered rhonchi, diminished on the left lung base. CVS: S1 and S2 normal with no audible murmur, regular rhythm. ABDOMEN: No hepatosplenomegaly, normal bowel sounds, no guarding or rigidity. SPINE: No scoliosis or deformity SKIN: No rashes CENTRAL NERVOUS SYSTEM: No focal deficits, tone is normal in all 4 extremities. EXTREMITIES: There is no peripheral edema. No clubbing, no cyanosis. Peripheral pulses are intact. - Labs CBC & Chem 7: 12/10/22 03:55 12/10/22 03:55 Labs: Abnormal Lab Results - Last 24 Hours (Table) 12/07/22 12/09/22 12/09/22 Range/Units 18:58 15:10 15:16 RBC (4.30-5.90) m/uL Hgb (13.0-17.5) gm/dL Hct (39.0-53.0) % RDW (11.5-15.5) % Lymphocytes # (1.0-4.8) k/uL Potassium 5.6 H (3.5-5.1) mmol/L BUN (9-20) mg/dL Creatinine (0.66-1.25) mg/dL Glucose (74-99) mg/dL POC Glucose (mg/dL) (70-110) mg/dL Calcium (8.4-10.2) mg/dL Urine Protein 1+ H (Negative) Crossmatch See Detail 12/09/22 12/09/22 12/10/22 Range/Units 15:16 15:25 03:55 RBC 2.73 L 2.58 L (4.30-5.90) m/uL Hgb 8.4 L 7.7 L (13.0-17.5) gm/dL Hct 25.2 L 23.3 L (39.0-53.0) % RDW 16.0 H 16.3 H (11.5-15.5) % Lymphocytes # 0.5 L (1.0-4.8) k/uL Potassium (3.5-5.1) mmol/L BUN (9-20) mg/dL Creatinine (0.66-1.25) mg/dL Glucose (74-99) mg/dL POC Glucose (mg/dL) 167 H (70-110) mg/dL Calcium (8.4-10.2) mg/dL Urine Protein (Negative) Crossmatch 12/10/22 Range/Units 03:55 RBC (4.30-5.90) m/uL Hgb (13.0-17.5) gm/dL Hct (39.0-53.0) % RDW (11.5-15.5) % Lymphocytes # (1.0-4.8) k/uL Potassium 5.5 H (3.5-5.1) mmol/L BUN 99 H (9-20) mg/dL Creatinine 4.76 H (0.66-1.25) mg/dL Glucose 160 H (74-99) mg/dL POC Glucose (mg/dL) (70-110) mg/dL Calcium 7.1 L (8.4-10.2) mg/dL Urine Protein (Negative) Crossmatch Assessment and Plan Assessment: Spontaneous left pneumothorax. ThoraVent was placed in the ER resulting in partial reexpansion of a large left 75% pneumothorax. He did go down for a CAT scan of the chest that revealed a large left-sided hydropneumothorax with signif icant airspace consolidation in the left upper lobe. Some atelectatic changes of the left lower lobe. Left upper lobe masslike consolidation measuring 8 cm. Left-sided chest tube was not in optimal position for fluid drainage. On 12/07/2022 he transferred to the intensive care unit. A left-sided #28-Bahraini chest tube was placed and with a significant amount of bloody return. Thora- Vent was discontinued. He has had over 3 L ML's of bloody fluid from the chest cavity thus far. Acute hypoxic respiratory failure secondary to above. Currently on 2 L nasal cannula. Acute anemia secondary to above received 1 unit of packed red blood cells, current hemoglobin 7.0 second unit has been ordered Acute renal failure, worsening creatinine 4.38, GFR 11 Chronic kidney disease stage IV Moderate to severe background COPD. Managed outpatient with [facility]. Hypertension Hyperlipidemia Nonischemic cardiomyopathy Biventricular pacemaker Coronary artery disease Remote history of pulmonary embolism Peripheral vascular disease BPH Glaucoma Ex-smoker, approximately 40 pack years Plan: The patient was seen and evaluated Chest x-ray, labs and medications reviewed Remains off Eliquis Currently off pressors Normal saline at 75 ML's an hour Incentive spirometer, bronchodilators Overall prognosis remains guarded DO NOT RESUSCITATE/DO NOT INTUBATE CODE STATUS We will continue to follow I have personally seen and examined the patient, performed the documentation and the assessment and plan as written. Number of minutes spent on the visit: 10.
--- NOTE | 2022-12-10 11:16 | P.PN ---
Subjective Patient is seen for follow-up for acute kidney injury, mostly ischemic ATN. Urine output remains borderline although slightly improved from yesterday. Patient is currently maintained on IV fluids. Urine output at 10-25 mL per hour. Left Chest tube still in place. Potassium 5.5 today Serum creatinine 4.76 Patient has been confused on and off. CODE STATUS including renal replacement therapy to be discussed further today. Objective - Vital Signs Vital signs: Vital Signs Temp 97.6 F 12/10/22 08:00 Pulse 60 12/10/22 10:00 Resp 21 12/10/22 10:00 BP 101/42 12/10/22 10:00 Pulse Ox 95 12/10/22 10:00 FiO2 Intake & Output 12/09/22 12/10/22 12/10/22 18:59 06:59 18:59 Intake Total 2225.661 975 300 Output Total 360 275 39 Balance 1865.661 700 261 Weight 75 kg Intake: IV 1710 975 300 Calcium Gluconate in NaCl 100 2 gm In Saline 1 100ml. bag @ 100 mls/hr IVPB ONCE ONE Rx#:[id number] Dextrose 5% in Water 1, 300 975 300 000 ml @ 75 mls/hr IV . [id number] [facility] with Sodium Bicarb (1 Meq/ml) 150 ml Rx#:[id number] Lactated Ringers 1,000 ml 1000 @ 999 mls/hr IV .Q1H1M [facility] Rx#:[id number] Sodium Chloride 0.9% 1, 310 000 ml @ 75 mls/hr IV . [id number] [facility] Rx#:[id number] Intake, IV Titration 195.661 Amount Norepinephrine 4 mg In 195.661 Sodium Chloride 0.9% 250 ml @ 0.03 MCG/KG/MIN 6. 801 mls/hr IV .Q24H [facility] Rx#:[id number] Blood Product 310 Rc As-1 Unit 310 [id number] Lipid 10 Sodium Chloride 0.9% 1, 10 000 ml @ 75 mls/hr IV . [id number] [facility] Rx#:[id number] Output: Chest Tube Drainage 200 200 Chest Tube Left Anterior 200 200 Chest Urine 160 75 39 Other: Voiding Method Indwelling Catheter Indwelling Catheter Indwelling Catheter # Voids 0 - Exam Patient is awake, comfortable, no acute distress He is confused and asking for razor Examination of the heart S1 and S2 Examination of the lungs shows decreased breath sounds at the bases. Upper respiratory transmitted sounds are heard Abdomen is soft nontender Examination lower extremity shows no significant edema Patient is moving all 4 extremities. - Labs CBC & Chem 7: 12/10/22 03:55 12/10/22 03:55 Labs: Abnormal Lab Results - Last 24 Hours (Table) 12/07/22 12/09/22 12/09/22 Range/Units 18:58 15:10 15:16 RBC (4.30-5.90) m/uL Hgb (13.0-17.5) gm/dL Hct (39.0-53.0) % RDW (11.5-15.5) % Lymphocytes # (1.0-4.8) k/uL Potassium 5.6 H (3.5-5.1) mmol/L BUN (9-20) mg/dL Creatinine (0.66-1.25) mg/dL Glucose (74-99) mg/dL POC Glucose (mg/dL) (70-110) mg/dL Calcium (8.4-10.2) mg/dL Urine Protein 1+ H (Negative) Crossmatch See Detail 12/09/22 12/09/22 12/10/22 Range/Units 15:16 15:25 03:55 RBC 2.73 L 2.58 L (4.30-5.90) m/uL Hgb 8.4 L 7.7 L (13.0-17.5) gm/dL Hct 25.2 L 23.3 L (39.0-53.0) % RDW 16.0 H 16.3 H (11.5-15.5) % Lymphocytes # 0.5 L (1.0-4.8) k/uL Potassium (3.5-5.1) mmol/L BUN (9-20) mg/dL Creatinine (0.66-1.25) mg/dL Glucose (74-99) mg/dL POC Glucose (mg/dL) 167 H (70-110) mg/dL Calcium (8.4-10.2) mg/dL Urine Protein (Negative) Crossmatch 12/10/22 Range/Units 03:55 RBC (4.30-5.90) m/uL Hgb (13.0-17.5) gm/dL Hct (39.0-53.0) % RDW (11.5-15.5) % Lymphocytes # (1.0-4.8) k/uL Potassium 5.5 H (3.5-5.1) mmol/L BUN 99 H (9-20) mg/dL Creatinine 4.76 H (0.66-1.25) mg/dL Glucose 160 H (74-99) mg/dL POC Glucose (mg/dL) (70-110) mg/dL Calcium 7.1 L (8.4-10.2) mg/dL Urine Protein (Negative) Crossmatch Assessment and Plan Assessment: 1. Acute kidney injury secondary to hypotension and hypoperfusion, oliguric ATN. UA is benign with 1+ protein. Ultrasound of the kidneys shows no evidence of obstruction. If patient's urine output does not improve and potassium remains elevated he will need renal replacement therapy. 2. Hyperkalemia associated with acute kidney injury, status post IV treatment. 3. CK D stage IV baseline creatinine 1.8-2. Etiology is likely nephrosclerosis . No UA is available at this time 4. Left-sided spontaneous Pneumothorax with subsequent hemothorax status post chest tube 5. Acute blood loss Anemia, status post packed RBCs transfusion 6. Metabolic acidosis associated with acute kidney injury Plan: Repeat lokelma by mouth 1 Continue with bicarb drip Avoid any nephrotoxic agents Repeat labs in a.m. Check iron profile Patient will need renal replacement therapy if renal function continues to worsen with poor urine output and hyperkalemia. Code Status including dialysis will be discussed today
[2022-12-10] MEDS ORDERED: SODIUM ZIRCONIUM CYCLOSILICATE 10 GM PACKET PO ONE (12:00)
[2022-12-10] MEDS ORDERED: LORazepam 2 MG/ML INJ IV PRN (14:56)
[2022-12-10] MEDS ORDERED: polyethylene glycoL 3350 17 GM POWD.PACK PO PRN (14:56)
--- NOTE | 2022-12-10 15:06 | P.PN ---
Progress Note - Text Progress Note Date: 12/10/22 Advanced Care Planning: Diagnoses: Anuric acute kidney injury on chronic kidney disease Uremic encephalopathy Large pneumothorax Acute blood loss anemia Discussion: Person(s) present and participating in discussion: Summary: Patient had made it clear to that he did not want dialysis , wants to be DNR/DNI. will like to make patient comfort care measures only. Hospice is consulted A total of 31 minutes of face to face time was spent discussing advanced care planning.
[2022-12-10 16:28] LABS: % Iron Saturation 17.53 (15.00-50.00)
[2022-12-10] MEDS: LATANOPROST 0.005% OPHTH DROPS 2.5 ML BTL BOTH EYES SCH (21:04)
[2022-12-10] MEDS ORDERED: ATROPINE OPHTH SOLN 1% 5ML BTL SUBLINGUAL PRN (21:09)
[2022-12-11] MEDS: MORPHINE SULFATE 4 MG/ML SYRINGE IV PRN (00:14)
[2022-12-11 02:17] VITALS: BP 123/55; PULSE 67; RESP 24; TEMP 97.8
--- NOTE | 2022-12-11 17:53 | P.DS ---
Providers Date of admission: 12/06/22 12:58 Expected date of discharge: 12/11/22 Attending physician: Liset Wei, Consults: 12/06/22 12:58 Consult Physician Urgent Consulting Provider: Gianni Hull Consult Reason/Comments: Pneumothorax Do you want consulting provider notified?: Already Contacted 12/07/22 19:23 Consult Physician Routine Consulting Provider: Trung Hurtado Consult Reason/Comments: larger bore chest tube placement due to large pneumothorax Do you want consulting provider notified?: Yes 12/09/22 07:52 Consult Physician Stat Consulting Provider: Basilio Greco Consult Reason/Comments: CKD/MAKAYLA Do you want consulting provider notified?: Yes 12/10/22 10:01 Consult to Palliative Care Routine Consulting Provider: Marnie Aguila Consult Reason/Comments: pneumothorax, blood loss, now anuric Do you want consulting provider notified?: Yes Primary care physician: [facility] Hospital Course: 87-year-old male with a past medical history of CAD status post stenting and pacemaker placement, aortic valve replacement 2009, PVD on anticoagulant with Eliquis, CKD stage IV, and hyperlipidemia. He presented to the emergency department secondary to reports of shortness of breath. Patient reported one week ago he was eating toast with cinnamon and states that he inhaled some of the cinnamon and immediately began coughing and had since been experiencing a difficult time breathing so he called and made an appointment with his health management consultant. Patient went in to be evaluated by his health management consultant, Dr. Will, this morning and was found to have a large left-sided pneumothorax and sent straight to the emergency department. Upon arrival to the emergency department patient underwent full evaluation. A chest x-ray was completed revealing large left-sided pneumothorax consisting of approximately 75%. Chest tube then placed in the emergency department. Labs were completed and reviewed. CBC revealing normocytic anemia with stable hemoglobin of 11.3 and BMP showing slight elevation in renal function with BUN 76, creatinine 2.22, and GFR of 25 with baseline creatinine of 1.8. Repeat chest x-ray completed status post inser tion of left sided chest tube, radiology report again reviewed showing left- sided chest tube is in place and pneumothorax persisting but showing improvement estimated at 15-20% from previous 75%, chest x-ray also concerning for persistent left hilar masslike density. Patient, laboratory findings, and imaging were discussed in detail with the ED physician. Patient was admitted under our services to stepdown unit with telemetry with consultation to pulmonology. Repeat chest x-ray was completed this morning in radiology report reviewed revealing left-sided pleural catheter redemonstrated but now reporting the development of small left apical pneumothorax with additional worsening of aeration throughout the left hemithorax with extensive opacity having developed. He had significant bloody drainage from chest tube, his hemoglobin reflecting significant blood loss anemia. CT chest without contrast showed large left- sided hydropneumothorax with left upper lobe masslike consolidation measuring 8 cm. Left-sided chest tube not in optimal position for drainage of pleural fluid. He was taken to medical ICU, and had another chest tube placed, with 1 L of bloody drainage out initially. His hemoglobin continues to worsen. He continues to have significant output from his chest tube. He is currently on nasal cannula, remains in the medical ICU. He is also an oliguric acute kidney injury. Patient continued to deteriorate overnight. CODE STATUS was revisited where patient had made it clear to his that he did not want dialysis. Patient was placed DNR/DNI. Patient at 4:10 AM on 12/11. Pertinent studies include chest x-ray, chest CT, renal bladder ultrasound. Discharge diagnosis: Large left-sided hemo-pneumothorax status post another chest tube, this was likely in the setting of aspiration versus spontaneous pneumothorax Acute blood loss anemia History of anemia of chronic disease Acute hypoxic respiratory failure Anuric, Acute kidney injury on stage IV chronic kidney disease Hyperkalemia Anion gap metabolic acidosis Acute metabolic encephalopathy, likely uremic Patient Condition at Discharge: Critical Plan - Discharge Summary Discharge Rx Participant: No New Discharge Prescriptions: No Action Latanoprost Ophth [Xalatan 0.005%] 1 drops BOTH EYES HS Multivit-Min/FA/Lycopen/Lutein [Centrum Silver Tablet] 1 tab PO DAILY Fenofibrate,Micronized [Fenofibrate] 134 mg PO DAILY Tamsulosin [Flomax] 0.4 mg PO DAILY Vit C/E/Zn/Coppr/Lutein/Zeaxan [Preservision Areds 2 Softgel] 1 cap PO BID Acetaminophen [Tylenol Arthritis] 1,300 mg PO TID PRN PRN Reason: Pain Aspirin [Adult Low Dose Aspirin EC] 81 mg PO HS Furosemide [Lasix] 40 mg PO DAILY carvediloL [Coreg] 6.25 mg PO BID-W/MEALS #180 tab Apixaban [Eliquis] 2.5 mg PO BID #180 tablet Cholecalciferol [Vitamin D3 (25 Mcg = 1000 Iu)] 25 mcg PO HS Ipratropium-Albuterol Nebulize [Duoneb 0.5 mg-3 mg/3 ml Soln] 3 ml INHALATION RT-DAILY Atorvastatin [Lipitor] 20 mg PO HS Discharge Medication List Fenofibrate,Micronized [Fenofibrate] 134 mg PO DAILY 09/13/15 [History] Latanoprost Ophth [Xalatan 0.005%] 1 drops BOTH EYES HS 09/13/15 [History] Multivit-Min/FA/Lycopen/Lutein [Centrum Silver Tablet] 1 tab PO DAILY 09/13/15 [History] Tamsulosin [Flomax] 0.4 mg PO DAILY 09/13/15 [History] Acetaminophen [Tylenol Arthritis] 1,300 mg PO TID PRN 12/03/17 [History] Vit C/E/Zn/Coppr/Lutein/Zeaxan [Preservision Areds 2 Softgel] 1 cap PO BID 12/03/17 [History] Aspirin [Adult Low Dose Aspirin EC] 81 mg PO HS 05/31/20 [History] Furosemide [Lasix] 40 mg PO DAILY 05/31/20 [History] Apixaban [Eliquis] 2.5 mg PO BID #180 tablet 07/14/20 [Rx] carvediloL [Coreg] 6.25 mg PO BID-W/MEALS #180 tab 07/14/20 [Rx] Atorvastatin [Lipitor] 20 mg PO HS 12/06/22 [History] Cholecalciferol [Vitamin D3 (25 Mcg = 1000 Iu)] 25 mcg PO HS 12/06/22 [History] Ipratropium-Albuterol Nebulize [Duoneb 0.5 mg-3 mg/3 ml Soln] 3 ml INHALATION RT-DAILY 12/06/22 [History] Follow up Appointment(s)/Referral(s): Janneth Will MD [Primary Care Provider] - 1-2 days Discharge Disposition: - Preliminary Cause of Preliminary Cause of : AHRF
== END 2022-12-11 07:07 | disposition expired | DRG 199 ==
LOC: EC 11:08 → 3SCARD 12:58 → 2SICU 12-07 20:26 → 6NMEDSUR 12-10 18:13
PROVIDERS: ADMIT Internal Medicine; ATTEND Internal Medicine
PROC: 0W9B30Z Drainage of Left Pleural Cavity with Drainage Device, Percutaneous Approach (ICD-10-PCS; principal; 2022-12-06)
PROC: 0W9B30Z Drainage of Left Pleural Cavity with Drainage Device, Percutaneous Approach (ICD-10-PCS; 2022-12-07)
PROC: 30233N1 Transfusion of Nonautologous Red Blood Cells into Peripheral Vein, Percutaneous Approach (ICD-10-PCS; 2022-12-07)
PROC: 3E043XZ Introduction of Vasopressor into Central Vein, Percutaneous Approach (ICD-10-PCS; 2022-12-07)
DX: J93.83 Other pneumothorax (principal); G93.41 Metabolic encephalopathy; J96.01 Acute respiratory failure with hypoxia; N17.0 Acute kidney failure with tubular necrosis; J98.11 Atelectasis; J94.8 Other specified pleural conditions; I42.8 Other cardiomyopathies; D62 Acute posthemorrhagic anemia; N18.4 Chronic kidney disease, stage 4 (severe); G93.49 Other encephalopathy; I13.0 Hypertensive heart and chronic kidney disease with heart failure and stage 1 through stage 4 chronic kidney disease, or unspecified chronic kidney disease; E87.20 Acidosis, unspecified; R57.8 Other shock; R57.1 Hypovolemic shock; Z66 Do not resuscitate; I50.9 Heart failure, unspecified; I25.10 Atherosclerotic heart disease of native coronary artery without angina pectoris; Z51.5 Encounter for palliative care; I73.9 Peripheral vascular disease, unspecified; Z95.2 Presence of prosthetic heart valve; E78.5 Hyperlipidemia, unspecified; E86.1 Hypovolemia; E87.5 Hyperkalemia; H35.30 Unspecified macular degeneration; H40.9 Unspecified glaucoma; H91.90 Unspecified hearing loss, unspecified ear; M15.9 Polyosteoarthritis, unspecified; N40.0 Benign prostatic hyperplasia without lower urinary tract symptoms; Z79.01 Long term (current) use of anticoagulants; Z79.82 Long term (current) use of aspirin; Z79.899 Other long term (current) drug therapy; Z86.711 Personal history of pulmonary embolism; Z95.0 Presence of cardiac pacemaker; Z95.5 Presence of coronary angioplasty implant and graft; Z88.6 Allergy status to analgesic agent; Z88.8 Allergy status to other drugs, medicaments and biological substances
CPT/HCPCS: 32551; 36415; 71045; 71250; 76770; 80048; 80053; 81001; 83540; 83550; 83735; 84132; 85025; 85027; 85610; 86850; 86900; 86901; 86920; 93005; 94640; 94760; 99285